=== PATIENT | female | born 1965 | race Caucasian/White ===

== ENCOUNTER 2016-09-18 17:59 | Inpatient (IN) | payer OTHER ==
[~2016-09-18] VITALS: Ht 165.1 cm; Wt 60.0 kg
[2016-09-18] VITALS (15 sets, daily range): BP systolic 106–149; BP diastolic 67–92; PULSE 67–92; RESP 14–19; TEMP 96.5–98; O2SAT 99–100
[2016-09-18] MEDS ORDERED: SODIUM CHLOR 0.9% 1000 ML INJ 1,000 ML IV SCH (18:12)
[2016-09-18] MEDS ORDERED: SODIUM CHLORIDE 0.9% FLUSH 5 ML FLUSH IV FLUSH PRN (18:15)
--- NOTE | 2016-09-18 18:21 | PD ---
HPI Chief Complaint: OD/ Ingestion Time Seen by Provider: 18:12 Travel History International Travel<30 days: No Contact w/Intl Traveler<30days: No Traveled to known affect area: No History of Present Illness HPI Patient is a 50-year-old female arrives with altered mental status by EMS. According to documentation provided by law enforcement the patient apparently had an intentional overdose of Robaxin as well as possible overdose of Klonopin. Apparently this is the birthday of her mother . The patient on arrival is a GCS of 3, EMS had given an etomidate in the field and attempts to intubate him were unsuccessful because the airway was tight. Further history is therefore limited. [facility] Past Medical History Medical History: Unable to Obtain ?: Unknown Past Surgical History Surgical History: Unable to Obtain Social History Alcohol Use: No Tobacco Use: No Substance Use: No Allergies-Medications (Allergen,Severity, Reaction): Coded Allergies: UNOBTAINABLE (Unverified , 09/18/16) UNRESPONSIVE Reported Meds & Prescriptions Reported Meds & Active Scripts Active Reported Methocarbamol 500 Mg Tab 500 Mg PO TID Review of Systems ROS Limitations: Altered Mental Status Physical Exam Exam Limitations: Altered Mental Status Narrative GENERAL: Well-developed, thin, appears much older than stated age. Nonpurposeful movements of the bilateral upper extremities which are intermittent, agonal respirations. GCS of 3. SKIN: Focused skin assessment warm/dry. HEAD: Atraumatic. Normocephalic. EYES: Pupils equal and round. No scleral icterus. No injection or drainage. ENT: No nasal bleeding or discharge. Mucous membranes pink and moist. OG in place by EMS. NECK: Trachea midline. No JVD. CARDIOVASCULAR: Tachycardia with regular rhythm. No murmur appreciated. RESPIRATORY: No accessory muscle use. Clear to auscultation. Breath sounds equal bilaterally. GASTROINTESTINAL: Abdomen soft, non-tender, nondistended. Hepatic and splenic margins not palpable. MUSCULOSKELETAL: No obvious deformities. No clubbing. No cyanosis. No edema. NEUROLOGICAL: GCS of 3. PSYCHIATRIC: Unable to assess Data Data Last Documented VS Vital Signs Date Time Temp Pulse Resp B/P Pulse Ox O2 Delivery O2 Flow Rate FiO2 09/18/16 18:30 98.0 72 19 133/80 100 Ventilator 100 09/18/16 18:00 15 Orders Electrocardiogram (09/18/16 18:12) Ammonia (09/18/16 18:12) Complete Blood Count With Diff (09/18/16 18:12) Comprehensive Metabolic Panel (09/18/16 18:12) Creatine Kinase (Cpk) (09/18/16 18:12) Prothrombin Time / Inr (Pt) (09/18/16 18:12) Act Partial Throm Time (Ptt) (09/18/16 18:12) Troponin I (09/18/16 18:12) Thyroid Stimulating Hormone (09/18/16 18:12) Urinalysis - C+S If Indicated (09/18/16 18:12) Lactic Acid Sepsis Protocol (09/18/16 18:12) Blood Culture (09/18/16 18:12) Chest, Single Ap (09/18/16 18:12) Ct Brain W/O Iv Contrast(Rout) (09/18/16 18:12) Blood Glucose (09/18/16 18:12) Ecg Monitoring (09/18/16 18:12) Iv Access Insert/Monitor (09/18/16 18:12) Oximetry (09/18/16 18:12) Sodium Chloride 0.9% Flush (Ns Flush) (09/18/16 18:15) Sodium Chlor 0.9% 1000 Ml Inj (Ns 1000 M (09/18/16 18:12) Drug Screen, Random Urine (09/18/16 18:12) Alcohol (Ethanol) (09/18/16 18:12) Tylenol (Acetaminophen) (09/18/16 18:12) Salicylates (Aspirin) (09/18/16 18:12) Urinary Catheter Management [id number].[id number] (09/18/16 18:48) Admit Order (Ed Use Only) (09/18/16 ) Labs Laboratory Tests Test 09/18/16 09/18/16 18:10 18:15 Ammonia 17 MCMOL/L White Blood Count 10.8 TH/MM3 Red Blood Count 4.94 MIL/MM3 Hemoglobin 15.1 GM/DL Hematocrit 43.1 % Mean Corpuscular Volume 87.1 FL Mean Corpuscular Hemoglobin 30.6 PG Mean Corpuscular Hemoglobin 35.1 % Concent Red Cell Distribution Width 13.1 % Platelet Count 245 TH/MM3 Mean Platelet Volume 7.7 FL Neutrophils (%) (Auto) 85.3 % Lymphocytes (%) (Auto) 6.1 % Monocytes (%) (Auto) 6.3 % Eosinophils (%) (Auto) 0.1 % Basophils (%) (Auto) 2.2 % Neutrophils # (Auto) 9.2 TH/MM3 Lymphocytes # (Auto) 0.7 TH/MM3 Monocytes # (Auto) 0.7 TH/MM3 Eosinophils # (Auto) 0.0 TH/MM3 Basophils # (Auto) 0.2 TH/MM3 CBC Comment DIFF FINAL Differential Comment Prothrombin Time 11.4 SEC Prothromb Time International 1.0 RATIO Ratio Activated Partial 26.8 SEC Thromboplast Time Sodium Level 134 MEQ/L Potassium Level 2.6 MEQ/L Chloride Level 103 MEQ/L Carbon Dioxide Level 16.6 MEQ/L Anion Gap 14 MEQ/L Blood Urea Nitrogen 19 MG/DL Creatinine 0.98 MG/DL Estimat Glomerular Filtration 61 ML/MIN Rate Random Glucose 148 MG/DL Lactic Acid Level 2.1 mmol/L Calcium Level 8.8 MG/DL Phosphorus Level 2.3 MG/DL Total Bilirubin 21.3 MG/DL Aspartate Amino Transf 24 U/L (AST/SGOT) Alanine Aminotransferase 23 U/L (ALT/SGPT) Alkaline Phosphatase 51 U/L Total Creatine Kinase 97 U/L Troponin I LESS THAN 0.02 NG/ML Total Protein 7.4 GM/DL Albumin 4.1 GM/DL Thyroid Stimulating Hormone 0.844 uIU/ML 3rd Gen Salicylates Level 3.6 MG/DL Urine Opiates Screen NEG Acetaminophen Level LESS THAN 2.0 MCG/ML Urine Barbiturates Screen NEG Urine Amphetamines Screen NEG Urine Benzodiazepines Screen NEG Urine Cocaine Screen NEG Urine Cannabinoids Screen POS Ethyl Alcohol Level LESS THAN 3 MG/DL [facility] Medical Decision Making Medical Screen Exam Complete: Yes Emergency Medical Condition: Yes Interpretation(s) EKG shows sinus rhythm rate is 72, prolonged QTC of 4081, intervals otherwise within normal limits. No concerning ST segment changes. This an abnormal EKG. Differential Diagnosis Opiate overdose, Tylenol overdose, muscle relaxant overdose, benzodiazepine overdose, aspiration. Narrative Course patient roomed in the emergency department, recognizing the need for airway protection the patient was R sign intubated on arrival. Her initial sats in the field were in the low 80s. Patient was discussed with poison control recommended symptomatic management watch for seizures. Patient has no indication for Romazicon at this time. Further Romazicon is contraindicated citing the possibility for status epilepticus. Weinberg catheter was placed basic labs show some mild electrolyte abnormalities. Last 24 hours Impressions Chest X-Ray 09/18/161811 Signed Impressions: Service Date/Time: , September 18, 2016 18:16 - CONCLUSION: 1. Endotracheal tube and nasogastric tube in satisfactory position. No acute findings. Nick Hassan MD Patient is CT head and C-spine pending at this time. Was discussed with Dr. Paul for admission to the hospital and he is agreeable. She is under Lopez act. Critical Care Narrative Aggregate critical care time was 35 minutes. Time to perform other separately billable procedures was not included in the critical care time. My time did not include minutes spent treating any other patients simultaneously or on activities that did not directly contribute to the patient's treatment. The services I provided to this patient were to treat and/or prevent clinically significant deterioration that could result in: , Disability, End organ failure I provided critical care services requiring my management, as noted below: Chart data review, documentation time, medication orders and management, vital sign assessments/reviewing monitor data, ordering and reviewing lab tests, ordering and interpreting/reviewing x-rays and diagnostic studies, care of the patient and discussion of the patient with the admitting physicians. Procedures Procedure Narrative INTUBATION: The patient was put in optimal position for the procedure. Rapid sequence intubation was initiated by me using 100 milligrams of succinylcholine IV. Patient already received etomidate and Ativan prior to arrival. Patient was attempted to be intubated with an 80 cuffed endotracheal tube however some laryngeal edema present 8 [place] tube was unable to be passed on 2 attempts. The patient was intubated with a 6-0 cuffed endotracheal tube. Tube placement was confirmed by visualization of the tube and balloon passing through the cords, capnometry and subsequent chest x-ray. Breath sounds were equal and well aerated bilaterally postintubation. No breath sounds over stomach. No desaturation during intubation. OG tube was placed by EMS was left in place during intubation. Patient tolerated procedure well. Diagnosis Primary Impression: Overdose of muscle relaxant Qualified Code: T48.202A - Overdose of muscle relaxant, intentional self-harm , initial encounter Additional Impression: Acute respiratory failure with hypoxia Admitting Information Admitting Physician Requests: Admit Condition: Teddy Goddard MD Sep 18, 2016 18:21
[2016-09-18 18:31] LABS: AUTOMATED NEUTROPHIL # 9.2 TH/MM3 (1.8-7.7); BASOPHIL # 0.2 TH/MM3 (0-0.2); BASOPHIL % 2.2 % (0.0-2.0); EOSINOPHIL % 0.1 % (0.0-4.0); HEMATOCRIT 43.1 % (35.0-46.0); HEMO FLAGS DIFF FINAL; LYMPH % 6.1 % (9.0-44.0); LYMPHOCYTE # 0.7 TH/MM3 (1.0-4.8); MEAN CELL VOLUME 87.1 FL (80.0-100.0); MEAN CORPUSCULAR HEMOGLOBIN 30.6 PG (27.0-34.0); MEAN CORPUSCULAR HGB CONC 35.1 % (32.0-36.0); MONO % 6.3 % (0.0-8.0); NEUT % 85.3 % (16.0-70.0); PLATELET COUNT 245 TH/MM3 (150-450); RED BLOOD COUNT 4.94 MIL/MM3 (4.00-5.30); RED CELL DISTRIBUTION WIDTH 13.1 % (11.6-17.2); WHITE BLOOD COUNT 10.8 TH/MM3 (4.0-11.0)
[2016-09-18 18:43] LABS: AMPHETAMINE, URINE NEG (NEG); BARBITURATES, URINE NEG (NEG); COCAINE, URINE NEG (NEG)
[2016-09-18 18:47] LABS: APTT (PATIENT) 26.8 SEC (24.3-30.1); PROTHROMBIN TIME - PATIENT 11.4 SEC (9.8-11.6)
--- NOTE | 2016-09-18 18:50 | RADRPT ---
EXAM DATE/TIME: 09/18/2016 18:16 [facility] COMPARISON: No previous studies available for comparison. INDICATIONS : Syncope; overdose. MEDICAL HISTORY : Unobtainable. SURGICAL HISTORY : Unobtainable. ENCOUNTER: Initial ACUITY: 1 day PAIN SCORE: Non-responsive. LOCATION: Bilateral chest FINDINGS: Endotracheal tube tip in satisfactory position. NG enters stomach. No focal consolidation or signific ant effusion. No pneumothorax. Heart size normal. CONCLUSION: 1. Endotracheal tube and nasogastric tube in satisfactory position. No acute findings. Nick Hassan MD on September 18, 2016 at 18:47 Board Certified Radiologist. This report was verified electronically.
[2016-09-18 19:12] LABS: ACETAMINOPHEN LESS THAN 2.0 MCG/ML (10.0-30.0); ALKALINE PHOSPHATASE 51 U/L (45-117); ALT (GPT) 23 U/L (10-53); ANION GAP 14 MEQ/L (5-15); AST (GOT) 24 U/L (15-37); BICARBONATE 16.6 MEQ/L (21.0-32.0); BLOOD UREA NITROGEN 19 MG/DL (7-18); CHLORIDE 103 MEQ/L (98-107); GLOMERULAR FILTRATION RATE 61 ML/MIN (>89); SODIUM (NA) 134 MEQ/L (136-145); TOTAL BILIRUBIN ADULT 21.3 MG/DL (0.2-1.0)
[2016-09-18 19:13] LABS: CREATINE KINASE 97 U/L (26-192)
[2016-09-18 19:14] LABS: POTASSIUM 2.6 MEQ/L (3.5-5.1)
[2016-09-18] MEDS ORDERED: NS + KCL 20 MEQ INJ 1,000 ML IV SCH (19:22)
[2016-09-18] MEDS ORDERED: POTASSIUM PHOSPHATE MONOBASIC 500 MG TAB PO PRN (19:30)
[2016-09-18] MEDS ORDERED: ONDANSETRON HCL 4 MG/2 ML VIAL IV PRN (19:30)
[2016-09-18] MEDS ORDERED: MAGNESIUM SULFATE INJ 4 GM in SODIUM CHLORIDE 0.9% INJ 92 ML IV PRN (19:30)
[2016-09-18] MEDS ORDERED: SODIUM PHOSPHATE INJ 30 MMOL in SODIUM CHLOR 0.9% 250 ML INJ 240 ML IV PRN (19:30)
[2016-09-18] MEDS ORDERED: POTASSIUM CHLOR 40 MEQ PREMIX 100 ML IV PRN ×2 (19:30)
[2016-09-18] MEDS ORDERED: POTASSIUM CHLOR 20 MEQ PREMIX 100 ML IV PRN (19:30)
[2016-09-18] MEDS ORDERED: ACETAMINOPHEN 325 MG TAB PO PRN (19:30)
[2016-09-18] MEDS ORDERED: MAGNESIUM SULFATE INJ 2 GM in SODIUM CHLORIDE 0.9% INJ 96 ML IV PRN (19:30)
[2016-09-18] MEDS ORDERED: BISACODYL 10 MG SUPP RECTAL PRN (19:30)
[2016-09-18] MEDS ORDERED: MAGNESIUM OXIDE 400 MG TAB PO PRN (19:30)
[2016-09-18] MEDS ORDERED: CHLORHEXIDINE GLUCONATE 2 % 1 PACK (2 CLOTHS) TOP PRN (19:30)
[2016-09-18] MEDS ORDERED: MISCELLANEOUS NURSING INFORMATION XX SCH (19:30)
[2016-09-18] MEDS ORDERED: SENNOSIDES 8.6 MG TAB PO PRN (19:30)
[2016-09-18] MEDS ORDERED: MAGNESIUM HYDROXIDE SUSP 30 ML CUP PO PRN (19:30)
[2016-09-18] MEDS ORDERED: LACTULOSE SYRUP 20 GM/30 ML CUP PO PRN (19:30)
[2016-09-18] MEDS ORDERED: POTASSIUM PHOSPHATE MONOBASIC 500 MG TAB PO/TUBE PRN (19:30)
[2016-09-18 19:38] LABS: BLOOD GAS CARBOXYHEMOGLOBIN 0.6 % (0-4); BLOOD GAS HCO3 17 mmol/L (22-26); BLOOD GAS METHEMOGLOBIN 0.7 % (0-2); BLOOD GAS O2 HGB SATURATION 98 % (90-100); BLOOD GAS PCO2 37 mmHg (38-42); BLOOD GAS PO2 504 mmHG (61-120); BLOOD GAS TOTAL HGB 14.2 G/DL (12.0-16.0); TEMP CORR TO 98.6
[2016-09-18 19:39] LABS: CRITICAL VALUE YES; DRAW SITE RT FEMORAL; FIO2 100 %; NUMBER OF ARTERIAL PUNCTURES 1; OXYGEN DEVICE VENTILATOR; STAT YES; VENT SETTINGS AC/14/450 5 PEEP
[2016-09-18] MEDS: LORazepam 2 MG/ML VIAL IV PRN (20:06)
[2016-09-18] MEDS: PROPOFOL 1000 MG/100 ML INJ 100 ML IV SCH (20:10)
[2016-09-18 20:25] LABS: LACTIC ACID GHOST NOT REPORTABLE
[2016-09-18] MEDS: SODIUM CHLORIDE 0.9% FLUSH 10 ML FLUSH SCH (21:00)
[2016-09-18] MEDS: ENOXAPARIN SODIUM 40 MG/0.4 ML SYRINGE SQ SCH (21:00)
[2016-09-18] MEDS: DOCUSATE SODIUM 50 MG/SENNA 8.6 MG TAB PO SCH (21:00)
--- NOTE | 2016-09-18 21:06 | HHI.HP ---
HPI Service Critical Care Medicine Primary Care Physician Gildardo Polanco MD Admission Diagnosis Respiratory failure, Overdose. Diagnosis: Travel History International Travel<30 Days: No Contact w/Intl Traveler <30 Da: No Traveled to Known Affected Are: No History of Present Illness 50-year-old female arrives with altered mental status by EMS. Per chart documentation the patient had most likely intentional overdose of Robaxin as well as possible overdose of Klonopin. Apparently this is the birthday of her mother . The patient on arrival was a GCS of 3, and was intubated by ED attending for an airway protection. Review of Systems ROS Unobtainable patient's sedated and intubated Past Family Social History Allergies: Coded Allergies: UNOBTAINABLE (Unverified , 09/18/16) UNRESPONSIVE Past Medical History Unobtainable Past Surgical History Unobtainable Reported Medications Reported Meds & Active Scripts Active Reported Methocarbamol 500 Mg Tab 500 Mg PO TID Active Ordered Medications Current Medications Medications (Trade) Dose Ordered Sig/[place]is[place] Route PRN Reason Start Time Stop Time Status Last Admin Dose Admin IV Flush 2 ml 2 ml UNSCH PRN IV FLUSH FLUSH AFTER USING IV ACCESS 09/18/16 18:15 Potassium Chloride 100 ml @ 50 mls/hr Q2H PRN IV For Potassium 2.8 - 3.2 mEq/L 09/18/16 19:30 Potassium Chloride (KCl 20 Meq Premix Inj) 100 ml @ 50 mls/hr Q2H PRN IV For Potassium 2.8 - 3.2 mEq/L 09/18/16 19:30 Potassium Bicarb/ Potassium Chloride 50 meq 50 meq UNSCH PRN PO For Potassium 3.3 - 3.5 mEq/L 09/18/16 19:30 Potassium Chloride 100 ml @ 25 mls/hr UNSCH PRN IV For Potassium 3.3 - 3.5 mEq/L 09/18/16 19:30 Potassium Chloride 100 ml @ 50 mls/hr Q2H PRN IV For Potassium 3.3 - 3.5 mEq/L 09/18/16 19:30 Magnesium Sulfate/ Sodium Chloride (Magnesium Sulfate Inj/NS Inj) 100 ml @ 50 mls/hr UNSCH PRN IV For Magnesium 0.9 - 1.1 mg/dL 09/18/16 19:30 Magnesium Oxide 800 mg 800 mg UNSCH PRN PO For Magnesium 1.2 - 1.6 mg/dL 09/18/16 19:30 Magnesium Sulfate/ Sodium Chloride (Magnesium Sulfate Inj/NS Inj) 100 ml @ 50 mls/hr UNSCH PRN IV For Magnesium 1.2 - 1.6 mg/dL 09/18/16 19:30 Potassium Phosphate 2000 mg 2,000 mg Q4H PRN PO For Phosphorus < 2.5 mg/dL 09/18/16 19:30 Sodium Phosphate/ Sodium Chloride (Sodium Phosphate Inj/NS 250 ml Inj) 250 ml @ 42 mls/hr UNSCH PRN IV For Phosphorus < 2.5 mg/dL 09/18/16 19:30 Potassium Phosphate 2000 mg 2,000 mg UNSCH PRN PO/TUBE SEE LABEL COMMENTS 09/18/16 19:30 Potassium Phosphate 30 mmol/ Sodium Chloride 260 ml @ 42 mls/hr UNSCH PRN IV SEE LABEL COMMENTS 09/18/16 19:30 Potassium Chloride/Sodium Chloride (NS + KCl 20 Meq Inj) 1,000 ml @ 100 mls/hr Q10H IV 09/18/16 19:22 09/18/16 20:09 Sodium Chloride (NS Flush) 2 ml UNSCH PRN .XX FLUSH AFTER USING IV ACCESS 09/18/16 19:30 Sodium Chloride (NS Flush) 2 ml BID .XX 09/18/16 21:00 Acetaminophen (Tylenol) 650 mg Q6H PRN PO PAIN 1-10 AND/OR FEVER >101F 09/18/16 19:30 Famotidine (Pepcid Inj) 20 mg Q12HR IV PUSH 09/18/16 21:00 Lorazepam (Ativan Inj) 1 mg Q1H PRN IV Agitation/Sedation 09/18/16 19:30 09/18/16 20:06 Ondansetron HCl (Zofran Inj) 4 mg Q6H PRN IV NAUSEA OR VOMITING 09/18/16 19:30 Enoxaparin Sodium (Lovenox Inj) 40 mg Q24H SQ 09/18/16 21:00 Miscellaneous Information 1 [id number] XX 09/18/16 19:30 Chlorhexidine Gluconate (Chlorhexidine 2% Cloth) 3 pack Taper DAILY@04 TOP 09/19/16 04:00 09/15/17 03:59 Chlorhexidine Gluconate (Chlorhexidine 2% Cloth) 3 pack UNSCH PRN TOP HYGIENIC CARE 09/18/16 19:30 Senna/Docusate Sodium (Cheri-Colace) 1 tab BID PO 09/18/16 21:00 Magnesium Hydroxide (Milk Of Jaiden Britton) 30 ml Q12H PRN PO MILD - MODERATE CONSTIPATION 09/18/16 19:30 Sennosides (Senokot) 17.2 mg Q12H PRN PO MODERATE - SEVERE CONSTIPATION 09/18/16 19:30 Bisacodyl (Dulcolax Supp) 10 mg DAILY PRN RECTAL SEVERE CONSITIPATION 09/18/16 19:30 Lactulose 30 ml 30 ml DAILY PRN PO SEVERE CONSITIPATION 09/18/16 19:30 Propofol 100 ml @ 0 mls/hr TITRATE IV 09/18/16 19:30 09/18/16 20:10 Sodium Bicarbonate/ Dextrose (Sodium Bicarbonate 8.4% Inj/D5W 1000 ml Inj) 1,150 ml @ 75 mls/hr [id number] IV 09/18/16 23:00 09/19/16 00:16 Family History Unobtainable Social History Unobtainable Physical Exam Vital Signs Vital Signs Date Time Temp Pulse Resp B/P Pulse Ox O2 Delivery O2 Flow Rate FiO2 09/18/16 20:30 67 131/83 100 09/18/16 20:00 68 149/92 100 09/18/16 19:35 100 50 09/18/16 19:00 87 147/82 100 09/18/16 18:30 98.0 72 19 133/80 100 Ventilator 100 09/18/16 18:10 100 100 09/18/16 18:03 92 16 130/70 99 09/18/16 18:00 99 15 09/18/16 18:00 99 Bag Valve 15 Physical Exam GENERAL: Elderly looking female sedated and intubated SKIN: Warm and dry. HEAD: Normocephalic. EYES: No scleral icterus. No injection or drainage. NECK: Supple, trachea midline. No JVD or lymphadenopathy. CARDIOVASCULAR: Regular rate and rhythm without murmurs, gallops, or rubs. RESPIRATORY: Breath sounds equal bilaterally. No accessory muscle use. GASTROINTESTINAL: Abdomen soft, non-tender, nondistended. MUSCULOSKELETAL: No cyanosis, or edema. BACK: Nontender without obvious deformity. No CVA tenderness. EXTREMITIES: No clubbing cyanosis or edema Laboratory Laboratory Tests Test 09/18/16 09/18/16 09/18/16 18:10 18:15 19:20 Ammonia 17 White Blood Count 10.8 Red Blood Count 4.94 Hemoglobin 15.1 Hematocrit 43.1 Mean Corpuscular Volume 87.1 Mean Corpuscular Hemoglobin 30.6 Mean Corpuscular Hemoglobin 35.1 Concent Red Cell Distribution Width 13.1 Platelet Count 245 Mean Platelet Volume 7.7 Neutrophils (%) (Auto) 85.3 Lymphocytes (%) (Auto) 6.1 Monocytes (%) (Auto) 6.3 Eosinophils (%) (Auto) 0.1 Basophils (%) (Auto) 2.2 Neutrophils # (Auto) 9.2 Lymphocytes # (Auto) 0.7 Monocytes # (Auto) 0.7 Eosinophils # (Auto) 0.0 Basophils # (Auto) 0.2 CBC Comment DIFF FINAL Differential Comment Prothrombin Time 11.4 Prothromb Time International 1.0 Ratio Activated Partial 26.8 Thromboplast Time Sodium Level 134 Potassium Level 2.6 Chloride Level 103 Carbon Dioxide Level 16.6 Anion Gap 14 Blood Urea Nitrogen 19 Creatinine 0.98 Estimat Glomerular Filtration 61 Rate Random Glucose 148 Lactic Acid Level 2.1 Calcium Level 8.8 Total Bilirubin 21.3 Aspartate Amino Transf 24 (AST/SGOT) Alanine Aminotransferase 23 (ALT/SGPT) Alkaline Phosphatase 51 Total Creatine Kinase 97 Troponin I LESS THAN 0.02 Total Protein 7.4 Albumin 4.1 Thyroid Stimulating Hormone 0.844 3rd Gen Salicylates Level 3.6 Urine Opiates Screen NEG Acetaminophen Level LESS THAN 2.0 Urine Barbiturates Screen NEG Urine Amphetamines Screen NEG Urine Benzodiazepines Screen NEG Urine Cocaine Screen NEG Urine Cannabinoids Screen POS Ethyl Alcohol Level LESS THAN 3 Blood Gas Puncture Site RT FEMORAL Blood Gas Patient Temperature 98.6 Blood Gas HCO3 17 Blood Gas Base Excess -9.0 Blood Gas Oxygen Saturation 98 Arterial Blood pH 7.27 Arterial Blood Partial 37 Pressure CO2 Arterial Blood Partial 504 Pressure O2 Arterial Blood Oxygen Content 21.0 Arterial Blood 0.6 Carboxyhemoglobin Arterial Blood Methemoglobin 0.7 Blood Gas Hemoglobin 14.2 Oxygen Delivery Device VENTILATOR Blood Gas Ventilator Setting AC/14/450 5 PEEP Blood Gas Inspired Oxygen 100 Result Diagram: 09/18/16181409/18/161814 Imaging Last [address] 09/18/161811 Signed Impressions: Service Date/Time: August 23:18 - CONCLUSION: No acute intracranial findings. Fred Cardoza MD Chest X-Ray 09/18/161811 Signed Impressions: Service Date/Time: August 18:16 - CONCLUSION: 1. Endotracheal tube and nasogastric tube in satisfactory position. No acute findings. Nick Hassan MD Assessment and Plan Assessment and Plan Respiratory failure - Intubated for an airway protection - Extubation or weaning until neurologically improved - CXR and ABG daily Metabolic acidosis - Sodium bicarbonate drip - Monitor pH trend - IV hydration Suicidal attempt - Psychiatry evaluation when extubated Overdose - Telemetry - IV fluids - Serial labs - Further per Poison Control Center DVT GI prophylaxis - Teds SCDs - Subcutaneous heparin and Pepcid Critical Care: The total critical care time was 35 minutes. Time to perform other separately billable procedures was not included in the critical care time. Jose Antonio Paul MD Sep 18, 2016 21:06
[2016-09-18] MEDS ORDERED: METH500T3 PO (21:07)
--- NOTE | 2016-09-18 21:51 | EKG ---
Date Performed: 09/18/2016 Time Performed: 18:23:05 PTAGE: 50 years EKG: Sinus rhythm WITH SHORT CT INTERVAL Borderline PROLONGED QT INTERVAL ABNORMAL ECG NO PREVIOUS TRACING DOCTOR: Juliano Zamorano Interpretating Date/Time 09/18/2016 21:49:48
--- NOTE | 2016-09-18 23:39 | RADRPT ---
EXAM DATE/TIME: 09/18/2016 23:18 [facility] COMPARISON: No previous studies available for comparison. INDICATIONS : Altered mental status. RADIATION DOSE: 31.61 CTDIvol (mGy) MEDICAL HISTORY : Non-responsive. SURGICAL HISTORY : Non-responsive. ENCOUNTER: Initial ACUITY: 1 day PAIN SCALE: Non-responsive LOCATION: cranial TECHNIQUE: Multiple contiguous axial images were obtained of the head. Using automated exposure control and adj ustment of the mA and/or kV according to patient size, radiation dose was kept as low as reasonably a chievable to obtain optimal diagnostic quality images. DICOM format image data is available electro nically for review and comparison. FINDINGS: CEREBRUM: The ventricles are normal for age. No evidence of midline shift, mass lesion, hemorrhage or acute in farction. No extra-axial fluid collections are seen. POSTERIOR FOSSA: The cerebellum and brainstem are intact. The 4th ventricle is midline. The cerebellopontine angle i s unremarkable. EXTRACRANIAL: The visualized portion of the orbits is intact. SKULL: The calvaria is intact. No evidence of skull fracture. CONCLUSION: No acute intracranial findings. Fred Cardoza MD on September 18, 2016 at 23:35 Board Certified Radiologist. This report was verified electronically.
[2016-09-19] VITALS (22 sets, daily range): BP systolic 89–134; BP diastolic 54–84; PULSE 70–124; RESP 14–26; TEMP 96.9–99.5; O2SAT 90–100
[2016-09-19] MEDS: SODIUM BICARBONATE 8.4% INJ 150 MEQ in DEXTROSE 5% IN WATE 1000ML INJ 1,000 ML IV SCH ×4 (00:16→13:54)
[2016-09-19] MEDS: PROPOFOL 1000 MG/100 ML INJ 100 ML IV SCH ×3 (00:27→15:37)
[2016-09-19] MEDS: POTASSIUM CHLOR 20 MEQ PREMIX 100 ML IV PRN ×2 (02:36→06:43)
[2016-09-19] MEDS: POTASSIUM PHOSPHATE INJ 30 MMOL in SODIUM CHLOR 0.9% 250 ML INJ 250 ML IV PRN ×2 (03:07→18:37)
[2016-09-19] MEDS: CHLORHEXIDINE GLUCONATE 2 % 1 PACK (2 CLOTHS) TOP SCH (04:00)
[2016-09-19 05:03] LABS: BASOPHIL # 0.1 TH/MM3 (0-0.2); BASOPHIL % 0.4 % (0.0-2.0); EOSINOPHIL # 0.1 TH/MM3 (0-0.4); EOSINOPHIL % 0.7 % (0.0-4.0); HEMATOCRIT 38.8 % (35.0-46.0); HEMO FLAGS DIFF FINAL; LYMPH % 9.4 % (9.0-44.0); LYMPHOCYTE # 1.6 TH/MM3 (1.0-4.8); MEAN CELL VOLUME 88.5 FL (80.0-100.0); MEAN CORPUSCULAR HGB CONC 32.8 % (32.0-36.0); NEUT % 81.5 % (16.0-70.0); PLATELET COUNT 233 TH/MM3 (150-450); RED BLOOD COUNT 4.39 MIL/MM3 (4.00-5.30); RED CELL DISTRIBUTION WIDTH 13.1 % (11.6-17.2); WHITE BLOOD COUNT 17.2 TH/MM3 (4.0-11.0)
[2016-09-19 05:29] LABS: BLOOD GAS BASE EXCESS -6.5 mmol/L (-2-2); BLOOD GAS HCO3 18 mmol/L (22-26); BLOOD GAS METHEMOGLOBIN 1.4 % (0-2); BLOOD GAS O2 HGB SATURATION 96 % (90-100); BLOOD GAS OXYGEN CONTENT 17.9 Vol % (12.0-20.0); BLOOD GAS PCO2 34 mmHg (38-42); BLOOD GAS PO2 113 mmHg (61-120); BLOOD GAS TOTAL HGB 13.2 G/DL (12.0-16.0); CRITICAL VALUE NO; DRAW SITE RT RADIAL; FIO2 30 %; NUMBER OF ARTERIAL PUNCTURES 1; OXYGEN DEVICE VENTILATOR; STAT NO; TEMP CORR TO 98.6; VENT SETTINGS AC450/14/+5
[2016-09-19 05:50] LABS: ALKALINE PHOSPHATASE 41 U/L (45-117); ALT (GPT) 20 U/L (10-53); ANION GAP 11 MEQ/L (5-15); AST (GOT) 25 U/L (15-37); BICARBONATE 19.1 MEQ/L (21.0-32.0); BLOOD UREA NITROGEN 17 MG/DL (7-18); CHLORIDE 109 MEQ/L (98-107); GLOMERULAR FILTRATION RATE 70 ML/MIN (>89); MAGNESIUM 1.8 MG/DL (1.5-2.5); POTASSIUM 4.4 MEQ/L (3.5-5.1); SODIUM (NA) 139 MEQ/L (136-145); TOTAL BILIRUBIN ADULT 20.4 MG/DL (0.2-1.0)
--- NOTE | 2016-09-19 06:11 | RADRPT ---
EXAM DATE/TIME: 09/19/2016 05:14 [facility] COMPARISON: CHEST SINGLE AP, September 18, 2016, 18:16. INDICATIONS : Evaluate for respiratory disease. MEDICAL HISTORY : Unobtainable. SURGICAL HISTORY : Unobtainable. ENCOUNTER: Subsequent ACUITY: 2 days PAIN SCORE: Non-responsive. LOCATION: chest FINDINGS: Single AP view of the chest. Endotracheal tube and nasogastric tube remain in place. Lungs are clear. Cardiomediastinal silhouette within normal limits. No evidence of pleural effusion or pneumothorax. CONCLUSION: Endotracheal tube and nasogastric tube remain in place. No acute cardiopulmonary disease identified. Fred Cardoza MD on September 19, 2016 at 6:07 Board Certified Radiologist. This report was verified electronically.
[2016-09-19] MEDS: FAMOTIDINE 20 MG/2 ML VIAL IV PUSH SCH ×2 (08:23→21:00)
[2016-09-19] MEDS: SODIUM CHLORIDE 0.9% FLUSH 10 ML FLUSH SCH ×2 (08:23→21:00)
[2016-09-19] MEDS: DOCUSATE SODIUM 50 MG/SENNA 8.6 MG TAB PO SCH ×2 (08:23→21:00)
[2016-09-19 15:35] LABS: BLOOD GAS BASE EXCESS -3.5 mmol/L (-2-2); BLOOD GAS CARBOXYHEMOGLOBIN 1.1 % (0-4); BLOOD GAS HCO3 20 mmol/L (22-26); BLOOD GAS METHEMOGLOBIN 1.6 % (0-2); BLOOD GAS O2 HGB SATURATION 95 % (90-100); BLOOD GAS OXYGEN CONTENT 17.4 Vol % (12.0-20.0); BLOOD GAS PCO2 31 mmHg (38-42); BLOOD GAS PO2 92 mmHg (61-120); TEMP CORR TO 98.6
[2016-09-19 15:36] LABS: CRITICAL VALUE NO; DRAW SITE RT RADIAL; FIO2 30 %; NUMBER OF ARTERIAL PUNCTURES 1; OXYGEN DEVICE VENTILATOR; STAT YES; ULNAR PULSE PRESENT; VENT SETTINGS 450/14/+5
[2016-09-19 17:04] LABS: BICARBONATE 22.3 MEQ/L (21.0-32.0)
[2016-09-19 17:23] LABS: CALCIUM-PROTEIN CORRECTED 7.9 MG/DL (8.5-10.1)
[2016-09-19 17:33] LABS: POTASSIUM 2.9 MEQ/L (3.5-5.1)
[2016-09-19] MEDS: POTASSIUM CHLORIDE 25 MEQ EFFERVESCENT TAB PO PRN (17:50)
[2016-09-19] MEDS: LORazepam 2 MG/ML VIAL IV PRN (18:38)
--- NOTE | 2016-09-19 19:12 | HHI.CCPN ---
Subjective Remarks/Hospital Course 50-year-old female arrives with altered mental status by EMS. Per chart documentation the patient had most likely intentional overdose of Robaxin as well as possible overdose of Klonopin. Apparently this is the birthday of her mother . The patient on arrival was a GCS of 3, and was intubated by ED attending for an airway protection. Subjective: 09/19: Discussed with poison control, repeat EKG performed for comparison noted QT prolongation resolved. Sodium bicarbonate discontinued post repeat BMP the patient is noted to be hypokalemic as well as hypophosphatemic currently being repleted . Plan for CPAP trials Objective Vital Signs Date Time Temp Pulse Resp B/P Pulse Ox O2 Delivery O2 Flow Rate FiO2 09/19/16 18:00 113 09/19/16 16:00 99.5 19 130/72 96 09/19/16 16:00 30 09/18/16 21:51 Ventilator 15 Intake and Output 09/18/16 09/18/16 09/19/16 08:00 16:00 00:00 Output Total 800 ml Balance -800 ml Result Diagram: 09/19/16 0422 09/19/16 1551 Other Results Laboratory Tests Test 09/18/16 09/19/16 09/19/16 19:20 05:22 15:19 Blood Gas Puncture Site RT FEMORAL RT RADIAL RT RADIAL Blood Gas Patient Temperature 98.6 98.6 98.6 Blood Gas HCO3 17 mmol/L 18 mmol/L 20 mmol/L (22-26) (22-26) (22-26) Blood Gas Base Excess -9.0 mmol/L -6.5 mmol/L -3.5 mmol/L (-2-2) (-2-2) (-2-2) Blood Gas Oxygen Saturation 98 % (90-100) 96 % (90-100) 95 % (90-100) Arterial Blood pH 7.27 7.35 7.43 (7.380-7.420) (7.380-7.420) (7.380-7.420) Arterial Blood Partial 37 mmHg (38-42) 34 mmHg (38-42) 31 mmHg (38-42) Pressure CO2 Arterial Blood Partial 504 mmHG 113 mmHg 92 mmHg Pressure O2 (61-120) (61-120) (61-120) Arterial Blood Oxygen Content 21.0 Vol % 17.9 Vol % 17.4 Vol % (12.0-20.0) (12.0-20.0) (12.0-20.0) Arterial Blood 0.6 % (0-4) 1.0 % (0-4) 1.1 % (0-4) Carboxyhemoglobin Arterial Blood Methemoglobin 0.7 % (0-2) 1.4 % (0-2) 1.6 % (0-2) Blood Gas Hemoglobin 14.2 G/DL 13.2 G/DL 13.0 G/DL (12.0-16.0) (12.0-16.0) (12.0-16.0) Oxygen Delivery Device VENTILATOR VENTILATOR VENTILATOR Blood Gas Ventilator Setting AC/14/450 5 AC450/14/+5 450/14/+5 PEEP Blood Gas Inspired Oxygen 100 % 30 % 30 % Imaging Last [address] 09/18/161811 Signed Impressions: Service Date/Time: August 23:18 - CONCLUSION: No acute intracranial findings. Fred Cardoza MD Chest X-Ray 09/18/161811 Signed Impressions: Service Date/Time: , September 18, 2016 18:16 - CONCLUSION: 1. Endotracheal tube and nasogastric tube in satisfactory position. No acute findings. Nick Hassan MD Objective Remarks GENERAL: Elderly looking female sedated and intubated SKIN: Warm and dry. HEAD: Normocephalic. EYES: No scleral icterus. No injection or drainage. NECK: Supple, trachea midline. No JVD or lymphadenopathy. CARDIOVASCULAR: Regular rate and rhythm without murmurs, gallops, or rubs. RESPIRATORY: Breath sounds equal bilaterally. No accessory muscle use. GASTROINTESTINAL: Abdomen soft, non-tender, nondistended. MUSCULOSKELETAL: No cyanosis, or edema. EXTREMITIES: No clubbing cyanosis or edema Urinary Catheter: Yes Date of Insertion: Sep 18, 2016 A/P Assessment and Plan Respiratory failure - Intubated for an airway protection - Extubation or weaning until neurologically improved - CXR and ABG daily -Begin daily CPAP trials Metabolic acidosis - 09/19 Sodium bicarbonate drip discontinued - Monitor pH trend - IV hydration Suicidal attempt - Psychiatry evaluation when extubated -Lopez Act in place Overdose - Telemetry - IV fluids - Serial labs - Further per Poison Control Center DVT GI prophylaxis - Teds SCDs - Subcutaneous heparin and Pepcid Critical Care: The total critical care time was 30 minutes. Time to perform other separately billable procedures was not included in the critical care time. Physician Idania Verdin MD Sep 19, 2016 19:12
[2016-09-19] MEDS: ENOXAPARIN SODIUM 40 MG/0.4 ML SYRINGE SQ SCH (21:00)
[2016-09-19] MEDS: RESP: ALBUTEROL 2.5 MG/3 ML NEB (PRN) INH (21:06)
[2016-09-20] VITALS (34 sets, daily range): BP systolic 81–129; BP diastolic 51–69; PULSE 114–126; RESP 15–29; TEMP 98.2–100.8; O2SAT 91–98
[2016-09-20] MEDS: RESP: ALBUTEROL 2.5 MG/3 ML NEB (PRN) INH ×3 (00:28→10:22)
[2016-09-20] MEDS: PROPOFOL 1000 MG/100 ML INJ 100 ML IV SCH ×4 (01:37→21:43)
[2016-09-20] MEDS ORDERED: SUCCINYLCHOLINE CHLORIDE 200 MG/10 ML VIAL ONE (02:12)
[2016-09-20] MEDS: CHLORHEXIDINE GLUCONATE 2 % 1 PACK (2 CLOTHS) TOP SCH (04:00)
--- NOTE | 2016-09-20 05:24 | RADRPT ---
EXAM DATE/TIME: 09/20/2016 02:44 [facility] COMPARISON: CHEST SINGLE AP, September 19, 2016, 5:14. INDICATIONS : Respiratory failure, post intubation MEDICAL HISTORY : None. SURGICAL HISTORY : None. ENCOUNTER: Subsequent ACUITY: 3 days PAIN SCORE: Non-responsive. LOCATION: Bilateral chest FINDINGS: A single view of the chest demonstrates the endotracheal tube is in good position. There is a radiolu cent tube I suspect is an NG tube in the midesophagus. The cardiomediastinal contours are unremarkab le. Osseous structures are intact. CONCLUSION: ET tube in good position. The NG tube may need to be advanced Harsh Chairez MD on September 20, 2016 at 5:22 Board Certified Radiologist. This report was verified electronically.
[2016-09-20 05:36] LABS: BLOOD GAS BASE EXCESS -6.7 mmol/L (-2-2); BLOOD GAS CARBOXYHEMOGLOBIN 0.8 % (0-4); BLOOD GAS HCO3 19 mmol/L (22-26); BLOOD GAS METHEMOGLOBIN 1.7 % (0-2); BLOOD GAS O2 HGB SATURATION 92 % (90-100); BLOOD GAS OXYGEN CONTENT 17.8 Vol % (12.0-20.0); BLOOD GAS PCO2 44 mmHg (38-42); BLOOD GAS PO2 82 mmHg (61-120); BLOOD GAS TOTAL HGB 13.7 G/DL (12.0-16.0); TEMP CORR TO 98.6
[2016-09-20 05:37] LABS: DRAW SITE RT RADIAL; FIO2 70 %; NUMBER OF ARTERIAL PUNCTURES 1; OXYGEN DEVICE VENTILATOR; STAT NO; ULNAR PULSE PRESENT; VENT SETTINGS AC14/450/+8
[2016-09-20 05:38] LABS: CRITICAL VALUE YES
[2016-09-20 06:37] LABS: MEAN CELL VOLUME 88.3 FL (80.0-100.0); MEAN CORPUSCULAR HEMOGLOBIN 30.3 PG (27.0-34.0); MEAN CORPUSCULAR HGB CONC 34.4 % (32.0-36.0); PLATELET COUNT 187 TH/MM3 (150-450); RED BLOOD COUNT 4.42 MIL/MM3 (4.00-5.30); RED CELL DISTRIBUTION WIDTH 13.8 % (11.6-17.2); WHITE BLOOD COUNT 31.3 TH/MM3 (4.0-11.0)
[2016-09-20 06:44] LABS: REVIEW FLAG FINAL
[2016-09-20 06:54] LABS: BICARBONATE 20.1 MEQ/L (21.0-32.0); MAGNESIUM 1.7 MG/DL (1.5-2.5)
[2016-09-20 07:20] LABS: CALCIUM-PROTEIN CORRECTED 7.7 MG/DL (8.5-10.1)
[2016-09-20] MEDS ORDERED: SODIUM BICARBONATE 8.4% INJ 50 MEQ/50 ML SYR IV PUSH ONE (07:45)
[2016-09-20] MEDS ORDERED: SODIUM CHLOR 0.9% 1000 ML INJ 1,000 ML IV ONE (07:45)
[2016-09-20] MEDS: SODIUM CHLOR 0.9% 1000 ML INJ 1,000 ML IV SCH ×2 (07:46→17:32)
[2016-09-20] MEDS: SODIUM CHLORIDE 0.9% FLUSH 10 ML FLUSH SCH ×2 (08:18→19:58)
[2016-09-20] MEDS: FAMOTIDINE 20 MG/2 ML VIAL IV PUSH SCH ×2 (08:19→19:58)
[2016-09-20] MEDS: DOCUSATE SODIUM 50 MG/SENNA 8.6 MG TAB PO SCH ×2 (08:19→19:59)
[2016-09-20] MEDS: AZITHROMYCIN INJ 500 MG in SODIUM CHLOR 0.9% 250 ML INJ 250 ML IV SCH (08:19)
[2016-09-20] MEDS: PIPERACIL-TAZO 4.5 GM PREMIX 100 ML IV SCH ×3 (08:21→19:59)
[2016-09-20] MEDS ORDERED: SODIUM BICARBONATE 8.4% INJ 50 MEQ/50 ML SYR IV ONE (09:00)
--- NOTE | 2016-09-20 10:22 | PD.PROCEDR ---
Procedure Note Procedure Procedure: Fiberoptic Bronchoscopy Diagnosis: Hypoxemia, acute respiratory failure Indications: Hypoxemia Consent: Emergent Anesthesia: see MAR Description of the Procedure: The patient was sedated and mechanically ventilated. The patient was placed on 100% FIO2 and a volume control mode of ventilation. The fiberoptic bronchoscopy was inserted via 8.0 ETT The trachea, right and left mainstem bronchi, and sub-segmental bronchi were evaluated. The endobronchial anatomy was normal. Findings: Copious mucopurulent yellow greenish drainage bilateral lobes BAL samples: 2 The patient tolerated the procedure well with no hemodynamic instability or hypoxia. There were no immediate complications noted. At the conclusion of the procedure, the patient was placed back on their pre-procedure ventilatory settings. There was minimal EBL. A chest x-ray has been ordered. I personally performed the procedure. Idania Palomares MD Sep 20, 2016 10:22
--- NOTE | 2016-09-20 10:38 | HHI.CCPN ---
Subjective Remarks/Hospital Course 50-year-old female arrives with altered mental status by EMS. Per chart documentation the patient had most likely intentional overdose of Robaxin as well as possible overdose of Klonopin. Apparently this is the birthday of her mother . The patient on arrival was a GCS of 3, and was intubated by ED attending for an airway protection. Subjective: 09/19: Discussed with poison control, repeat EKG performed for comparison noted QT prolongation resolved. Sodium bicarbonate discontinued post repeat BMP the patient is noted to be hypokalemic as well as hypophosphatemic currently being repleted . Plan for CPAP trials 09/20: Overnight the patient became severely hypoxemic, with noted copious amounts of thick greenish yellowish secretions. ETT change to a larger size 7.5 from 6.0, PaO2 was noted to be 81 on 70%. This a.m. bronchoscopy performed noted copious amount of greenish yellowish purulent drainage noted, BAL samples obtained. Bicarbonate infusion was discontinued per poison control recommendations last evening. Noted bicarbonate level was 19 this a.m. The patient received 2 Amps of sodium bicarbonate given. Repeat ABG pending, post bronchoscopy. Objective Vital Signs Date Time Temp Pulse Resp B/P Pulse Ox O2 Delivery O2 Flow Rate FiO2 09/20/16 06:00 122 09/20/16 04:30 98 50 09/20/16 04:00 99.1 24 122/69 09/18/16 21:51 Ventilator 15 Intake and Output 09/19/16 09/19/16 09/20/16 08:00 16:00 00:00 Intake Total 1264 ml 993 ml 499 ml Output Total 600 ml 300 ml 251 ml Balance 664 ml 693 ml 248 ml Result Diagram: 09/20/16 0501 09/20/16 0521 Other Results Laboratory Tests Test 09/19/16 09/20/16 15:19 05:20 Blood Gas Puncture Site RT RADIAL RT RADIAL Blood Gas Patient Temperature 98.6 98.6 Blood Gas HCO3 20 mmol/L 19 mmol/L (22-26) (22-26) Blood Gas Base Excess -3.5 mmol/L -6.7 mmol/L (-2-2) (-2-2) Blood Gas Oxygen Saturation 95 % (90-100) 92 % (90-100) Arterial Blood pH 7.43 7.26 (7.380-7.420) (7.380-7.420) Arterial Blood Partial 31 mmHg (38-42) 44 mmHg (38-42) Pressure CO2 Arterial Blood Partial 92 mmHg 82 mmHg Pressure O2 (61-120) (61-120) Arterial Blood Oxygen Content 17.4 Vol % 17.8 Vol % (12.0-20.0) (12.0-20.0) Arterial Blood 1.1 % (0-4) 0.8 % (0-4) Carboxyhemoglobin Arterial Blood Methemoglobin 1.6 % (0-2) 1.7 % (0-2) Blood Gas Hemoglobin 13.0 G/DL 13.7 G/DL (12.0-16.0) (12.0-16.0) Oxygen Delivery Device VENTILATOR VENTILATOR Blood Gas Ventilator Setting 450/14/+5 AC14/450/+8 Blood Gas Inspired Oxygen 30 % 70 % Imaging Last [address] 09/18/161811 Signed Impressions: Service Date/Time: August 23:18 - CONCLUSION: No acute intracranial findings. Frde Cardoza MD Chest X-Ray 09/18/161811 Signed Impressions: Service Date/Time: August 18:16 - CONCLUSION: 1. Endotracheal tube and nasogastric tube in satisfactory position. No acute findings. Nick Hassan MD Objective Remarks GENERAL: Well-developed well-nourished female appearing older than stated age SKIN: Warm and dry. HEAD: Normocephalic. EYES: No scleral icterus. No injection or drainage. NECK: Supple, trachea midline. No JVD or lymphadenopathy. CARDIOVASCULAR: Rate, sinus tachycardia and rhythm without murmurs, gallops, or rubs. RESPIRATORY: Breath sounds equal bilaterally. No accessory muscle use. GASTROINTESTINAL: Abdomen soft, non-tender, nondistended. MUSCULOSKELETAL: No cyanosis, or edema. EXTREMITIES: No clubbing cyanosis or edema Procedures 09/20 bronchoscopy with BAL Urinary Catheter: Yes Date of Insertion: Sep 18, 2016 A/P Assessment and Plan Respiratory failure -09/18 Intubated for an airway protection - Extubation or weaning until neurologically improved - Chest x-ray and ABG daily -Daily CPAP trials when clinically indicated -09/20 Bronchoscopy with BAL -DuoNeb every 6 hours schedule every 2 hours when necessary -Mechanical ventilation 14/450/8/100%, continue to wean FiO2 Metabolic acidosis - 09/19 Sodium bicarbonate drip discontinued -09/20 2 amps sodium bicarbonate IV push, continue to closely monitor - Monitor pH trend - IV hydration normal saline 1 L bolus, continued infusion 125 cc/hour -Creatnine Kinase pending Suicidal attempt - Psychiatry evaluation when extubated -Lopez Act in place Overdose - IV fluids - Serial labs - Obtain CK level, follow-up results -Repeat EKG obtained yesterday, QT prolongation resolved, no further recommendations per poison control Probable aspiration pneumonia Fever -Sputum culture -Blood urine cultures -2-D echo R/O endocarditis DVT GI prophylaxis - Teds SCDs - Subcutaneous heparin and Pepcid Dispo: Discussed with MACHINE FINISHER at bedside and contacted Poison Control Aurora Munoz RN - Supportive Care only at this point. Patient significantly hypoxemic early this a.m., unable to obtain consent. Bronchoscopy with BAL washings performed emergently. Critical Care: This patient remains critically ill with one or more organ systems which are or may become a threat to life. I have spent in excess of 39 minutes discontinuously in the care and management of this patient. This time is exclusive of procedures, and includes, but is not limited to, evaluation of the patient, review of the medical record, discussions with family, consultants, nursing staff, or respiratory therapy, and documentation in the medical record. Physician Idania Verdin MD Sep 20, 2016 10:38
[2016-09-20] MEDS: RESP: ALBUTEROL 2.5 MG/IPRATROPIUM 0.5 MG NEB (SCH) NEB ×3 (10:45→20:39)
--- NOTE | 2016-09-20 10:52 | RADRPT ---
EXAM DATE/TIME: 09/20/2016 10:06 [facility] COMPARISON: CHEST SINGLE AP, September 20, 2016, 2:44. INDICATIONS : Post bronchoscopy. MEDICAL HISTORY : None. SURGICAL HISTORY : None. ENCOUNTER: Subsequent ACUITY: 3 days PAIN SCORE: Non-responsive. LOCATION: Bilateral chest FINDINGS: ET tube and nasogastric tube are in good position. There are increasing combined changes right lung base. Minimal parenchymal changes are present on the left. The heart and pulmonary vascularity are n ormal. CONCLUSION: Increasing consolidation on the right as described above. Carlos Narvaez MD FACR on September 20, 2016 at 10:49 Board Certified Radiologist. This report was verified electronically.
[2016-09-20] MEDS ORDERED: CALCIUM GLUCONATE INJ 2 GM in DEXTROSE 5% IN WATER 100ML INJ 100 ML IV ONE ×2 (11:00)
[2016-09-20 12:21] LABS: BLOOD GAS BASE EXCESS -2.2 mmol/L (-2-2); BLOOD GAS CARBOXYHEMOGLOBIN 0.8 % (0-4); BLOOD GAS HCO3 23 mmol/L (22-26); BLOOD GAS METHEMOGLOBIN 1.5 % (0-2); BLOOD GAS O2 HGB SATURATION 92 % (90-100); BLOOD GAS OXYGEN CONTENT 16.6 Vol % (12.0-20.0); BLOOD GAS PCO2 47 mmHg (38-42); BLOOD GAS PO2 72 mmHg (61-120); BLOOD GAS TOTAL HGB 12.9 G/DL (12.0-16.0); CRITICAL VALUE NO; OXYGEN DEVICE VENTILATOR; TEMP CORR TO 98.6; VENT SETTINGS 450/14/PEEP8
[2016-09-20 12:22] LABS: DRAW SITE LT RADIAL; FIO2 70 %; NUMBER OF ARTERIAL PUNCTURES 1; STAT NO; ULNAR PULSE PRESENT
[2016-09-20 14:48] LABS: CKMB 8.9 NG/ML (0.5-3.6)
--- NOTE | 2016-09-20 16:42 | ECHRPT ---
Indication: endocarditis CONCLUSIONS Dilated left ventricle. Wall thickness is measured at the upper limits of normal. The left ventricular systolic function is severely reduced with an estimated ejection fraction in th e range of 30%. The right ventricular systoilc function is mildly decreased. The right atrium is not well visualized. The interatrial septum not well visualized. Mild mitral valve regurgitation. Posible small vegetation seen on mitral valveThe aortic valve is not well visualized. No aortic valve regurgitation. No aortic valve stenosis. The tricuspid valve is not well visualized. There is mild tricuspid valve regurgitation. The pulmonary valve is not well visualized. The inferior vena cava was not well visualized. BP: / HR: Rhythm: MEASUREMENTS (Male / Female) Normal Values Technical Quality:Fair., Technically difficult rosa maria dy 2D ECHO LV Diastolic Diameter PLAX 4.4 cm 4.2 - 5.9 / 3.9 - 5.3 cm LV Systolic Diameter PLAX 4.1 cm IVS Diastolic Thickness 1.0 cm 0.6 - 1.0 / 0.6 - 0.9 cm LVPW Diastolic Thickness 1.1 cm 0.6 - 1.0 / 0.6 - 0.9 cm LV Relative Wall Thickness 0.5 RV Internal Dim ED PLAX 2.1 cm M-MODE Aortic Root Diameter MM 2.9 cm LA Systolic Diameter MM 3.0 cm LA Ao Ratio MM 1.0 AV Cusp Separation MM 1.9 cm DOPPLER Mitral E Point Velocity 65.2 cm/s Mitral A Point Velocity 78.0 cm/s Mitral E to A Ratio 0.8 TR Peak Velocity 219.0 cm/s TR Peak Gradient 19.2 mmHg FINDINGS LEFT VENTRICLE Dilated left ventricle. Wall thickness is measured at the upper limits of normal. The left ventricular systolic function is severely reduced with an estimated ejection fraction in th e range of 20-25%. RIGHT VENTRICLE The right ventricular systoilc function is mildly decreased. LEFT ATRIUM The left atrial size is normal. RIGHT ATRIUM The right atrium is not well visualized. The right atrial size is normal. ATRIAL SEPTUM The interatrial septum not well visualized. AORTA The aortic root and proximal ascending aorta are normal in size on limited imaging. MITRAL VALVE Mild mitral valve regurgitation. Posible small vegetation seen on mitral valve AORTIC VALVE The aortic valve is not well visualized. No aortic valve regurgitation. No aortic valve stenosis. TRICUSPID VALVE The tricuspid valve is not well visualized. Structurally normal tricuspid valve. There is mild tricuspid valve regurgitation. PULMONARY VALVE The pulmonary valve is not well visualized. VESSELS The inferior vena cava was not well visualized. PERICARDIUM No pericardial effusion. Juliano Zamorano MD (Electronically Signed) Final Date:20 September 2016 16:41
--- NOTE | 2016-09-20 16:43 | EKG ---
Date Performed: 09/19/2016 Time Performed: 16:07:06 PTAGE: 50 years EKG: Sinus tachycardia with short OR interval Diffuse nonspecific ST-T wave change Since PREVIOUS TRACING , heart rate is faster and the ST-T changes are new. PREVIOUS TRACIN 09/18/2016 18.23 DOCTOR: Jarrett Artis Interpretating Date/Time 09/20/2016 16:43:43
[2016-09-20] MEDS: SODIUM BICARBONATE 8.4% INJ 150 MEQ in DEXTROSE 5% IN WATE 1000ML INJ 850 ML IV SCH ×2 (18:50)
[2016-09-20] MEDS: ENOXAPARIN SODIUM 40 MG/0.4 ML SYRINGE SQ SCH (19:59)
[2016-09-20] MEDS: SODIUM CHLORIDE 0.9% FLUSH 10 ML FLUSH PRN (19:59)
[2016-09-21] VITALS (36 sets, daily range): BP systolic 88–104; BP diastolic 52–67; PULSE 85–118; RESP 17–25; TEMP 98.5–99.6; O2SAT 97–100
[2016-09-21] MEDS: PIPERACIL-TAZO 4.5 GM PREMIX 100 ML IV SCH ×4 (01:51→21:09)
[2016-09-21] MEDS: CHLORHEXIDINE GLUCONATE 2 % 1 PACK (2 CLOTHS) TOP SCH (04:00)
[2016-09-21] MEDS: RESP: ALBUTEROL 2.5 MG/IPRATROPIUM 0.5 MG NEB (SCH) NEB ×5 (04:07→22:00)
[2016-09-21] MEDS: SODIUM BICARBONATE 8.4% INJ 150 MEQ in DEXTROSE 5% IN WATE 1000ML INJ 850 ML IV SCH ×2 (04:27)
--- NOTE | 2016-09-21 04:54 | RADRPT ---
EXAM DATE/TIME: 09/21/2016 03:35 [facility] COMPARISON: CHEST SINGLE AP, September 20, 2016, 10:06. INDICATIONS : Respiratory failure, intubation MEDICAL HISTORY : None. SURGICAL HISTORY : None. ENCOUNTER: Subsequent ACUITY: 4 - 6 days PAIN SCORE: Non-responsive. LOCATION: Bilateral chest FINDINGS: A single view of the chest demonstrates persistent infiltrate in the right lower lobe unchanged. The endotracheal tube and nasogastric both in good position.. The cardiomediastinal contours are unremar kable. Osseous structures are intact. CONCLUSION: Persistent consolidation right lower lobes unchanged Harsh Chairez MD on September 21, 2016 at 4:52 Board Certified Radiologist. This report was verified electronically.
[2016-09-21] MEDS: PROPOFOL 1000 MG/100 ML INJ 100 ML IV SCH ×2 (05:54→22:24)
[2016-09-21 06:11] LABS: AUTOMATED NEUTROPHIL # 17.7 TH/MM3 (1.8-7.7); BASOPHIL # 0.2 TH/MM3 (0-0.2); BASOPHIL % 1.1 % (0.0-2.0); EOSINOPHIL # 0.1 TH/MM3 (0-0.4); EOSINOPHIL % 0.3 % (0.0-4.0); HEMATOCRIT 34.4 % (35.0-46.0); LYMPH % 3.9 % (9.0-44.0); LYMPHOCYTE # 0.8 TH/MM3 (1.0-4.8); MEAN CELL VOLUME 87.6 FL (80.0-100.0); MEAN CORPUSCULAR HEMOGLOBIN 29.7 PG (27.0-34.0); MEAN CORPUSCULAR HGB CONC 33.9 % (32.0-36.0); MONO % 6.1 % (0.0-8.0); NEUT % 88.6 % (16.0-70.0); PLATELET COUNT 138 TH/MM3 (150-450); RED BLOOD COUNT 3.93 MIL/MM3 (4.00-5.30); RED CELL DISTRIBUTION WIDTH 13.8 % (11.6-17.2)
[2016-09-21 06:15] LABS: HEMO FLAGS AUTO DIFF
[2016-09-21 06:46] LABS: BICARBONATE 30.3 MEQ/L (21.0-32.0); CALCIUM-PROTEIN CORRECTED 7.8 MG/DL (8.5-10.1); MAGNESIUM 1.8 MG/DL (1.5-2.5)
[2016-09-21 06:51] LABS: POTASSIUM 2.9 MEQ/L (3.5-5.1)
[2016-09-21] MEDS: POTASSIUM CHLOR 20 MEQ PREMIX 100 ML IV PRN (06:53)
[2016-09-21] MEDS: POTASSIUM PHOSPHATE INJ 30 MMOL in SODIUM CHLOR 0.9% 250 ML INJ 250 ML IV PRN (07:52)
[2016-09-21 08:18] LABS: BANDS 23 % (0-6); METAMYELOCYTES 7 % (0-1); MYELOCYTES 1 % (0-0); NEUTROPHIL # MANUAL DIFF 17.2 TH/MM3 (1.8-7.7); POLYS (SEG NEUTROPHILS) 55 % (16-70); WBC DIFF SAMPLE 100
[2016-09-21 08:19] LABS: PLATELET ESTIMATE SMEAR LOW (NORMAL); PLATELET MORPHOLOGY NORMAL (NORMAL); SCAN/DIFF FINAL DIFF MANUAL
[2016-09-21] MEDS: SODIUM CHLORIDE 0.9% FLUSH 10 ML FLUSH SCH ×2 (08:59→21:10)
[2016-09-21] MEDS: AZITHROMYCIN INJ 500 MG in SODIUM CHLOR 0.9% 250 ML INJ 250 ML IV SCH (09:00)
[2016-09-21] MEDS: FAMOTIDINE 20 MG/2 ML VIAL IV PUSH SCH ×2 (09:00→21:00)
[2016-09-21] MEDS: DOCUSATE SODIUM 50 MG/SENNA 8.6 MG TAB PO SCH ×2 (09:00→21:10)
[2016-09-21 09:09] LABS: BLOOD GAS BASE EXCESS 7.6 mmol/L (-2-2); BLOOD GAS CARBOXYHEMOGLOBIN 1.1 % (0-4); BLOOD GAS HCO3 31 mmol/L (22-26); BLOOD GAS METHEMOGLOBIN 1.3 % (0-2); BLOOD GAS O2 HGB SATURATION 97 % (90-100); BLOOD GAS OXYGEN CONTENT 17.7 Vol % (12.0-20.0); BLOOD GAS PCO2 43 mmHg (38-42); BLOOD GAS PO2 134 mmHg (61-120); BLOOD GAS TOTAL HGB 12.9 G/DL (12.0-16.0); CRITICAL VALUE NO; FIO2 55 %; NUMBER OF ARTERIAL PUNCTURES 1; OXYGEN DEVICE VENTILATOR; TEMP CORR TO 98.6; ULNAR PULSE PRESENT; VENT SETTINGS 450/AC14/PEEP6
[2016-09-21 09:10] LABS: DRAW SITE RT RADIAL; STAT NO
[2016-09-21] MEDS: SODIUM CHLOR 0.9% 1000 ML INJ 1,000 ML IV SCH ×2 (10:11→21:10)
--- NOTE | 2016-09-21 15:20 | HHI.CCPN ---
Subjective Remarks/Hospital Course 50-year-old female arrives with altered mental status by EMS. Per chart documentation the patient had most likely intentional overdose of Robaxin as well as possible overdose of Klonopin. Apparently this is the birthday of her mother . The patient on arrival was a GCS of 3, and was intubated by ED attending for an airway protection. Subjective: 09/19: Discussed with poison control, repeat EKG performed for comparison noted QT prolongation resolved. Sodium bicarbonate discontinued post repeat BMP the patient is noted to be hypokalemic as well as hypophosphatemic currently being repleted . Plan for CPAP trials 09/20: Overnight the patient became severely hypoxemic, with noted copious amounts of thick greenish yellowish secretions. ETT change to a larger size 7.5 from 6.0, PaO2 was noted to be 81 on 70%. This a.m. bronchoscopy performed noted copious amount of greenish yellowish purulent drainage noted, BAL samples obtained. Bicarbonate infusion was discontinued per poison control recommendations last evening. Noted bicarbonate level was 19 this a.m. The patient received 2 Amps of sodium bicarbonate given. Repeat ABG pending, post bronchoscopy. 09/21: Remains sedated, orally intubated on mechanical ventilation. Bicarbonate drip. This morning due to improvement in metabolic acidosis. Continues to have thick greenish pulmonary secretions. Objective Vital Signs Date Time Temp Pulse Resp B/P Pulse Ox O2 Delivery O2 Flow Rate FiO2 09/21/16 13:24 98 45 09/21/16 10:30 115 22 90/52 09/21/16 08:00 99.6 09/18/16 21:51 Ventilator 15 Intake and Output 09/20/16 09/20/16 09/21/16 08:00 16:00 00:00 Intake Total 142 ml 1030 ml 1328 ml Output Total 400 ml 375 ml 401 ml Balance -258 ml 655 ml 927 ml Result Diagram: 09/21/16 0438 09/21/16 0438 Other Results Laboratory Tests Test 09/21/16 09:02 Blood Gas Puncture Site RT RADIAL Blood Gas Patient Temperature 98.6 Blood Gas HCO3 31 mmol/L (22-26) Blood Gas Base Excess 7.6 mmol/L (-2-2) Blood Gas Oxygen Saturation 97 % (90-100) Arterial Blood pH 7.48 (7.380-7.420) Arterial Blood Partial 43 mmHg (38-42) Pressure CO2 Arterial Blood Partial 134 mmHg Pressure O2 (61-120) Arterial Blood Oxygen Content 17.7 Vol % (12.0-20.0) Arterial Blood 1.1 % (0-4) Carboxyhemoglobin Arterial Blood Methemoglobin 1.3 % (0-2) Blood Gas Hemoglobin 12.9 G/DL (12.0-16.0) Oxygen Delivery Device VENTILATOR Blood Gas Ventilator Setting 450/AC14/PEEP6 Blood Gas Inspired Oxygen 55 % Imaging Last [address] 09/18/161811 Signed Impressions: Service Date/Time: , September 18, 2016 23:18 - CONCLUSION: No acute intracranial findings. Fred Cardoza MD Chest X-Ray 09/18/161811 Signed Impressions: Service Date/Time: , September 18, 2016 18:16 - CONCLUSION: 1. Endotracheal tube and nasogastric tube in satisfactory position. No acute findings. Nick Hassan MD Objective Remarks GENERAL: Well-developed well-nourished female appearing older than stated age SKIN: Warm and dry. HEAD: Normocephalic. EYES: No scleral icterus. No injection or drainage. NECK: Supple, trachea midline. No JVD or lymphadenopathy. CARDIOVASCULAR: Rate, sinus tachycardia and rhythm without murmurs, gallops, or rubs. RESPIRATORY: Breath sounds equal bilaterally. No accessory muscle use. GASTROINTESTINAL: Abdomen soft, non-tender, nondistended. MUSCULOSKELETAL: No cyanosis, or edema. EXTREMITIES: No clubbing cyanosis or edema Procedures 09/20 bronchoscopy with BAL Date of Insertion: Sep 18, 2016 A/P Assessment and Plan Respiratory failure -09/18 Intubated for an airway protection - Extubation or weaning until neurologically improved - Chest x-ray and ABG daily -Daily CPAP trials when clinically indicated -09/20 Bronchoscopy with BAL -DuoNeb every 6 hours schedule every 2 hours when necessary. Added Mucomyst nebs/ chest PT 0n 09/21 -Mechanical ventilation 14/450/8/45%, continue to wean FiO2 Metabolic acidosis - 09/21 Sodium bicarbonate drip discontinued - Monitor pH trend - IV hydration normal saline Suicidal attempt - Psychiatry evaluation when extubated -Lopez Act in place Overdose - IV fluids - Serial labs - Obtain CK level, follow-up results -Repeat EKG obtained yesterday, QT prolongation resolved, no further recommendations per poison control Probable aspiration pneumonia Fever -Sputum culture -Blood urine cultures -2-D echo R/O endocarditis DVT GI prophylaxis - Teds SCDs - Subcutaneous heparin and Pepcid Bronchoscopy with BAL washings performed emergently on 09/21 Critical Care: This patient remains critically ill with one or more organ systems which are or may become a threat to life. I have spent in excess of 35 minutes discontinuously in the care and management of this patient. This time is exclusive of procedures, and includes, but is not limited to, evaluation of the patient, review of the medical record, discussions with family, consultants, nursing staff, or respiratory therapy, and documentation in the medical record. Ismael Luu MD Sep 21, 2016 15:20
[2016-09-21] MEDS: RESP: ACETYLCYSTEINE 10% 30 ML NEB NEB SCH (21:09)
[2016-09-21] MEDS: ENOXAPARIN SODIUM 40 MG/0.4 ML SYRINGE SQ SCH (21:10)
[2016-09-22] VITALS (46 sets, daily range): BP systolic 94–135; BP diastolic 56–77; PULSE 85–102; RESP 14–42; TEMP 98–99.5; O2SAT 98–100
[2016-09-22] MEDS: RESP: ACETYLCYSTEINE 10% 30 ML NEB NEB SCH ×4 (00:10→23:27)
[2016-09-22] MEDS: RESP: ALBUTEROL 2.5 MG/IPRATROPIUM 0.5 MG NEB (SCH) NEB ×7 (00:10→23:27)
[2016-09-22] MEDS: POTASSIUM CHLORIDE 25 MEQ EFFERVESCENT TAB PO PRN (00:25)
[2016-09-22] MEDS: PIPERACIL-TAZO 4.5 GM PREMIX 100 ML IV SCH ×3 (02:44→14:00)
[2016-09-22] MEDS: CHLORHEXIDINE GLUCONATE 2 % 1 PACK (2 CLOTHS) TOP SCH (04:00)
[2016-09-22 04:45] LABS: AUTOMATED NEUTROPHIL # 16.4 TH/MM3 (1.8-7.7); BASOPHIL # 0.1 TH/MM3 (0-0.2); BASOPHIL % 0.5 % (0.0-2.0); EOSINOPHIL # 0.2 TH/MM3 (0-0.4); EOSINOPHIL % 0.9 % (0.0-4.0); HEMATOCRIT 31.7 % (35.0-46.0); HEMO FLAGS DIFF FINAL; LYMPH % 7.2 % (9.0-44.0); LYMPHOCYTE # 1.4 TH/MM3 (1.0-4.8); MEAN CELL VOLUME 88.7 FL (80.0-100.0); MEAN CORPUSCULAR HEMOGLOBIN 30.1 PG (27.0-34.0); MEAN CORPUSCULAR HGB CONC 33.9 % (32.0-36.0); NEUT % 85.4 % (16.0-70.0); PLATELET COUNT 108 TH/MM3 (150-450); RED BLOOD COUNT 3.58 MIL/MM3 (4.00-5.30); RED CELL DISTRIBUTION WIDTH 13.7 % (11.6-17.2); WHITE BLOOD COUNT 19.2 TH/MM3 (4.0-11.0)
[2016-09-22] MEDS: PROPOFOL 1000 MG/100 ML INJ 100 ML IV SCH ×3 (05:07→22:40)
[2016-09-22 05:10] LABS: BICARBONATE 26.1 MEQ/L (21.0-32.0); POTASSIUM 4.2 MEQ/L (3.5-5.1); TOTAL BILIRUBIN ADULT 1.1 MG/DL (0.2-1.0)
[2016-09-22] MEDS: DOCUSATE SODIUM 50 MG/SENNA 8.6 MG TAB PO SCH ×2 (07:48→21:14)
[2016-09-22] MEDS: FAMOTIDINE 20 MG/2 ML VIAL IV PUSH SCH ×2 (09:31→21:14)
[2016-09-22] MEDS: SODIUM CHLORIDE 0.9% FLUSH 10 ML FLUSH PRN (09:31)
[2016-09-22] MEDS: AZITHROMYCIN INJ 500 MG in SODIUM CHLOR 0.9% 250 ML INJ 250 ML IV SCH (09:31)
[2016-09-22] MEDS: SODIUM CHLOR 0.9% 1000 ML INJ 1,000 ML IV SCH ×2 (09:32→22:40)
[2016-09-22] MEDS: SODIUM CHLORIDE 0.9% FLUSH 10 ML FLUSH SCH ×2 (09:32→21:13)
[2016-09-22 11:53] LABS: C. DIFF EPI 027 PRESUMPTIVE NEGATIVE (NEGATIVE); C. DIFF TOXIN PCR NEGATIVE (NEGATIVE)
--- NOTE | 2016-09-22 15:03 | HHI.CCPN ---
Subjective Remarks/Hospital Course 50-year-old female arrives with altered mental status by EMS. Per chart documentation the patient had most likely intentional overdose of Robaxin as well as possible overdose of Klonopin. Apparently this is the birthday of her mother . The patient on arrival was a GCS of 3, and was intubated by ED attending for an airway protection. Subjective: 09/19: Discussed with poison control, repeat EKG performed for comparison noted QT prolongation resolved. Sodium bicarbonate discontinued post repeat BMP the patient is noted to be hypokalemic as well as hypophosphatemic currently being repleted . Plan for CPAP trials 09/20: Overnight the patient became severely hypoxemic, with noted copious amounts of thick greenish yellowish secretions. ETT change to a larger size 7.5 from 6.0, PaO2 was noted to be 81 on 70%. This a.m. bronchoscopy performed noted copious amount of greenish yellowish purulent drainage noted, BAL samples obtained. Bicarbonate infusion was discontinued per poison control recommendations last evening. Noted bicarbonate level was 19 this a.m. The patient received 2 Amps of sodium bicarbonate given. Repeat ABG pending, post bronchoscopy. 09/21: Remains sedated, orally intubated on mechanical ventilation. Bicarbonate drip stopped this morning due to improvement in metabolic acidosis. Continues to have thick greenish pulmonary secretions. 09/22: Remains sedated, orally intubated on mechanical ventilation Objective Vital Signs Date Time Temp Pulse Resp B/P Pulse Ox O2 Delivery O2 Flow Rate FiO2 09/22/16 13:38 100 40 09/22/16 12:00 86 09/22/16 12:00 99.3 20 104/63 09/18/16 21:51 Ventilator 15 Intake and Output 09/21/16 09/21/16 09/22/16 08:00 16:00 00:00 Intake Total 724 ml 1469 ml 746 ml Output Total 325 ml 700 ml 650 ml Balance 399 ml 769 ml 96 ml Result Diagram: 09/22/16 0343 09/22/16 0343 Other Results Microbiology Date/Time Procedure Status Source Growth 09/20/16 10:15 Urine Culture - Final Complete Urine Catheterized Urine Escherichia Coli Esbl Positive Imaging Last [address] 09/18/16 1812 Signed Impressions: Service Date/Time: August 23:18 - CONCLUSION: No acute intracranial findings. Fred Cardoza MD Chest X-Ray 09/18/16 1812 Signed Impressions: Service Date/Time: , September 18, 2016 18:16 - CONCLUSION: 1. Endotracheal tube and nasogastric tube in satisfactory position. No acute findings. Nick Hassan MD Objective Remarks GENERAL: Well-developed well-nourished female appearing older than stated age SKIN: Warm and dry. HEAD: Normocephalic. EYES: No scleral icterus. No injection or drainage. NECK: Supple, trachea midline. No JVD or lymphadenopathy. CARDIOVASCULAR: Rate, sinus tachycardia and rhythm without murmurs, gallops, or rubs. RESPIRATORY: Breath sounds equal bilaterally. No accessory muscle use. GASTROINTESTINAL: Abdomen soft, non-tender, nondistended. MUSCULOSKELETAL: No cyanosis, or edema. EXTREMITIES: No clubbing cyanosis or edema Procedures 09/20 bronchoscopy with BAL Date of Insertion: Sep 18, 2016 A/P Assessment and Plan Acute Respiratory failure -09/18 Intubated for an airway protection - Chest x-ray and ABG daily -Daily CPAP trials -09/20 Bronchoscopy with BAL -DuoNeb every 6 hours schedule every 2 hours when necessary. Added Mucomyst nebs/ chest PT on 09/21 -Mechanical ventilation 14/450/8/45%, continue to wean FiO2 Metabolic acidosis - 09/21 Sodium bicarbonate drip discontinued - Monitor pH trend - IV hydration normal saline Suicidal attempt - Psychiatry evaluation when extubated -Lopez Act in place Overdose - IV fluids - Serial labs - Obtain CK level, follow-up results -Repeat EKG 09/19, QT prolongation resolved, no further recommendations per poison control Probable aspiration pneumonia Sepsis Suspected endocarditis - ? mitral valve vegetation on echo On azithromycin/Zosyn for empiric antibiotic coverage. -Follow-up blood and sputum cultures. Urine culture with ESBL Escherichia coli. ID consult requested as patient probably needs to be switched to a carbapenem. -2-D echo with suspected mitral valve vegetation- consulted ID 09/22. DVT GI prophylaxis - Teds SCDs - Subcutaneous heparin and Pepcid Bronchoscopy with BAL washings performed emergently on 09/21 Critical Care: This patient remains critically ill with one or more organ systems which are or may become a threat to life. I have spent in excess of 35 minutes discontinuously in the care and management of this patient. This time is exclusive of procedures, and includes, but is not limited to, evaluation of the patient, review of the medical record, discussions with family, consultants, nursing staff, or respiratory therapy, and documentation in the medical record. Ismael Luu MD Sep 22, 2016 15:02
[2016-09-22] MEDS ORDERED: ASP: Path resistant to other antimicrobials, culture proven PRN (16:00)
[2016-09-22] MEDS ORDERED: MISCELLANEOUS PHARMACY INFORMATION XX PRN ×2 (16:00)
[2016-09-22] MEDS: IMIPENEM/CILASTATIN INJ 500 MG in SODIUM CHLORIDE 0.9% INJ 100 ML IV SCH ×2 (18:45→22:38)
--- NOTE | 2016-09-22 18:54 | ECHRPT ---
Indication: Other nonrheumatic mitral valve disorders CONCLUSIONS Mildly dilated left ventricle. The left ventricular systolic function is severely reduced with an estimated ejection fraction in th e range of 25-30%. There is global left ventricular dysfunction. Structurally normal mitral valve. Mild mitral valve regurgitation. Trace aortic valve regurgitation. No evidence of endocarditis BP: / HR: Rhythm: Sinus Technical Quality:Good Medications Complications None Proc. Components FINDINGS LEFT VENTRICLE Wall thickness is normal. The left ventricular systolic function is severely reduced with an estimated ejection fraction in th e range of 25-30%. Mildly dilated left ventricle. There is global left ventricular dysfunction. RIGHT VENTRICLE The right ventricular systoilc function is mildly decreased. The right ventricular size is normal. LEFT ATRIUM The left atrial size is normal. RIGHT ATRIUM The right atrium is not well visualized. ATRIAL APPENDAGES Normal left atrial appendage size with no evidence of thrombus formation. ATRIAL SEPTUM Normal atrial septal thickness without atrial level shunting by limited color doppler interrogation. MITRAL VALVE Structurally normal mitral valve. Mild mitral valve regurgitation. No mitral valve stenosis. AORTIC VALVE Trileaflet aortic valve. Trace aortic valve regurgitation. No aortic valve stenosis. TRICUSPID VALVE The tricuspid valve is structurally normal. No TR noted VESSELS The pulmonary valve is not well visualized. No pulmonary valve regurgitation or stenosis. Parker Triplett DO (Electronically Signed) Final Date:22 September 2016 18:53
--- NOTE | 2016-09-22 20:50 | MB ---
cc: JINA DOLL MD DATE OF CONSULTATION 09/22/[address] Cristóbal Luu REASON FOR CONSULTATION ESBL E coli in urine. Possible mitral valve vegetation. HISTORY OF PRESENT ILLNESS This is a 50-year-old white female who was brought to the emergency department following a drug overdose. The patient was noted to have intentionally overdosed on Robaxin and Klonopin. She was unresponsive in the emergency department and was intubated. The patient is currently in the intensive care unit on the ventilator. Workup included urine culture which has ESBL E-coli and bronch washing has gram-negative ann marie. Chest x-ray shows right lower lobe infiltrate. The patient has white blood cell count elevation and she had an episode of low-grade fever two days ago. She is currently sedated on the ventilator. A 2-D echocardiogram was performed and the atrium was not well visualized and there was noted to be a possible small vegetation on the mitral valve and the tricuspid valve was not well visualized. There was also mild mitral valve regurgitation noted. Further information on the patient is not available at this time. PAST MEDICAL HISTORY Unable to obtain. ALLERGIES Unable to obtain. MEDICATIONS 1. Piperacillin. 2. Azithromycin. 3. Pepcid. 4. Lovenox. 5. Mucomyst. 6. DuoNeb. SOCIAL HISTORY No tobacco or alcohol noted. Toxicology screen is positive for cannabinoids. FAMILY HISTORY Unable to obtain. REVIEW OF SYSTEMS Unable to obtain. PHYSICAL EXAMINATION GENERAL: This is a slender female who is on the ventilator. She briefly opens her eyes and moves her head but no other responses. VITAL SIGNS: Include temperature 99.3. Blood pressure 99/65 heart rate 90, respirations per ventilator. HEENT: Unable to fully assess. The pupils are symmetric, dilated. No icterus. Oropharynx intubated. NECK: Supple. No swelling or adenopathy. LUNGS: Rhonchi at both bases. HEART: Regular rate and rhythm. No audible murmurs or rubs or gallops. ABDOMEN: Soft, nontender. Bowel sounds audible. RECTAL: Not performed. EXTREMITIES: No clubbing or cyanosis. 1-2+ edema of the hands. No visible hemorrhages at the extremities. SKIN: No rash. NEUROLOGIC: Unable to fully assess. LABORATORY DATA WBC 19.2, platelets 108, hemoglobin 10.8. Creatinine 0.60, BUN 18, estimated GFR 107, AST 119, ALT 34, sodium 144. Bronch washing has gram-negative ann marie, heavy growth. Urine culture ESBL E-coli. IMPRESSION 1. ESBL E-coli. 2. Pneumonia due to gram-negative ann marie. 3. 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 4. Leukocytosis secondary to infection. 5. Acute respiratory failure, possibly aspiration as well following intubation with infiltrate having developed after intubation. RECOMMENDATIONS 1. Continue azithromycin. 2. Discontinue piperacillin / Tazobactam. 3. Begin imipenem to cover a ESBL E coli in the urine and also cover gram-negative bacteria in the lungs until further information is available on the sputum. 4. Obtain a new set of blood cultures. 5. I agree with ALIA for further evaluation of the heart valve and further investigation on the possible mitral valve vegetation. 6. Monitor clinical response. Thank you for this consultation. I will follow the patient's progress along with you and will make further recommendations on followup. Jina Doll MD FD/JOEL /3:45 PM /8:28 PM
[2016-09-22] MEDS: ENOXAPARIN SODIUM 40 MG/0.4 ML SYRINGE SQ SCH (21:14)
[2016-09-23] VITALS (47 sets, daily range): BP systolic 97–124; BP diastolic 52–80; PULSE 81–109; RESP 16–31; TEMP 98.4–99.9; O2SAT 93–100
[2016-09-23] MEDS: CHLORHEXIDINE GLUCONATE 2 % 1 PACK (2 CLOTHS) TOP SCH (03:00)
[2016-09-23] MEDS: RESP: ALBUTEROL 2.5 MG/IPRATROPIUM 0.5 MG NEB (SCH) NEB ×6 (04:31→23:21)
[2016-09-23] MEDS: IMIPENEM/CILASTATIN INJ 500 MG in SODIUM CHLORIDE 0.9% INJ 100 ML IV SCH ×4 (04:52→22:38)
[2016-09-23] MEDS: PROPOFOL 1000 MG/100 ML INJ 100 ML IV SCH (05:58)
--- NOTE | 2016-09-23 06:52 | MB ---
cc: PARKER HILARIO DO DATE OF CONSULTATION September 22, 2016 REASON FOR CONSULTATION Possible endocarditis. HISTORY OF PRESENT ILLNESS Don Duron is a 50-year-old female who originally arrived to [facility] on September 18, 2016, with altered mental status per EMS. The patient is currently intubated and unable to provide history so this is taken from the chart. There was a concern for intentional overdose of Robaxin as well as possible overdose of Klonopin. Apparently this was the anniversary of her mother's . On arrival her GCS was 3 and she was intubated. An echocardiogram was done on September 20, 2016, and there was concern for possible small vegetations on the mitral valve. Because of this I was asked to see the patient for consideration of ALIA. PAST MEDICAL HISTORY Unable to obtain due to the patient's current state, other than most likely attempted suicide on this admission. PAST SURGICAL HISTORY Unable to obtain due to the patient's current state. ALLERGIES Unable to obtain due to the patient's current state. MEDICATIONS Methocarbamol 500 mg t.i.d. for muscle spasm. SOCIAL HISTORY Unable to obtain due to current state. FAMILY HISTORY Unable to obtain due to current state. REVIEW OF SYSTEMS Unable to obtain due to current state. PHYSICAL EXAMINATION VITAL SIGNS: Temperature 98.8, heart rate 90, blood pressure 99/65, respirations 18, pulse ox 100% on an FIO2 of 40%. IN GENERAL: The patient is currently intubated and sedated. HEENT: Pupils are equal and round with no drainage. Mucous membranes moist. ET tube in place. NECK: Supple. No JVD at 45 degrees. No carotid bruits heard bilaterally. Carotid upstroke is brisk in nature. HEART: Regular rate and rhythm. Positive first and second heart sounds with no noted murmurs, gallops or rubs. LUNGS: Decreased breath sounds bilaterally but no overt wheezes, rales or rhonchi. ABDOMEN: Soft, non-tender, non-distended. No organomegaly noted. EXTREMITIES: No clubbing, cyanosis or edema. Femoral and distal pulses intact bilaterally. NEUROLOGICALL: Unable to obtain due to the patient currently being sedated. SKIN: Warm, dry and intact. OSTEOPATHICALLY: No kyphoscoliosis, lordosis or paraspinal tender points. LABORATORY FINDINGS Hemoglobin 10.8, hematocrit 31.7, platelets 108. Potassium 4.2, BUN 18, creatinine 0.6. ECHOCARDIOGRAM (September 20, 2016) Dilated left ventricle, ejection fraction of 30%, right ventricle systolically is mildly decreased. Possible small vegetation on the anterior mitral valve. Mild mitral and tricuspid regurgitation. IMPRESSIONS 1. Possible vegetation noted on echocardiogram on the anterior leaflet mitral valve. 2. Acute respiratory failure requiring intubation. 3. Suicide attempt with Robaxin and Klonopin. 4. Metabolic acidosis. 5. Possible aspiration pneumonia. RECOMMENDATIONS 1. As Ms. Duron does have possible vegetation on the anterior leaflet of her mitral valve, I feel that she should undergo ALIA. I reviewed the echocardiogram and it is unclear whether this is truly a vegetation and for full diagnostic measures, I feel the ALIA would be beneficial. 2. I have discussed this with her over the phone and he understands the risks, benefits and alternatives and gives consent. 3. The patient is currently n.p.o. and has not received tube feed and so we will plan on doing this this afternoon. 4. Further recommendations will be made after imaging. 5. It was noted that she had a new cardiomyopathy and she may need further workup for this depending on her hospital course. Thank you for allowing me to see Don Duron. If there are any questions, please do not hesitate to call. Parker Hilario DO VGP/SSB /6:10 PM /6:40 AM
[2016-09-23] MEDS: DOCUSATE SODIUM 50 MG/SENNA 8.6 MG TAB PO SCH ×2 (07:20→21:00)
[2016-09-23] MEDS: RESP: ACETYLCYSTEINE 10% 30 ML NEB NEB SCH ×3 (07:48→23:22)
[2016-09-23] MEDS: FAMOTIDINE 20 MG/2 ML VIAL IV PUSH SCH ×2 (08:21→21:30)
[2016-09-23] MEDS: AZITHROMYCIN INJ 500 MG in SODIUM CHLOR 0.9% 250 ML INJ 250 ML IV SCH (08:21)
[2016-09-23] MEDS: SODIUM CHLORIDE 0.9% FLUSH 10 ML FLUSH SCH ×2 (08:30→21:31)
[2016-09-23] MEDS ORDERED: RESP: RACEPINEPHRINE 2.25% 0.5 ML NEB NEB STA (10:11)
[2016-09-23] MEDS ORDERED: DEXAMETHASONE SOD PHOS 4 MG/ML VIAL IV PUSH STA (10:12)
--- NOTE | 2016-09-23 10:25 | HHI.CCPN ---
Subjective Remarks/Hospital Course 50-year-old female arrives with altered mental status by EMS. Per chart documentation the patient had most likely intentional overdose of Robaxin as well as possible overdose of Klonopin. Apparently this is the birthday of her mother . The patient on arrival was a GCS of 3, and was intubated by ED attending for an airway protection. Subjective: 09/19: Discussed with poison control, repeat EKG performed for comparison noted QT prolongation resolved. Sodium bicarbonate discontinued post repeat BMP the patient is noted to be hypokalemic as well as hypophosphatemic currently being repleted . Plan for CPAP trials 09/20: Overnight the patient became severely hypoxemic, with noted copious amounts of thick greenish yellowish secretions. ETT change to a larger size 7.5 from 6.0, PaO2 was noted to be 81 on 70%. This a.m. bronchoscopy performed noted copious amount of greenish yellowish purulent drainage noted, BAL samples obtained. Bicarbonate infusion was discontinued per poison control recommendations last evening. Noted bicarbonate level was 19 this a.m. The patient received 2 Amps of sodium bicarbonate given. Repeat ABG pending, post bronchoscopy. 09/21: Remains sedated, orally intubated on mechanical ventilation. Bicarbonate drip stopped this morning due to improvement in metabolic acidosis. Continues to have thick greenish pulmonary secretions. 09/22: Remains sedated, orally intubated on mechanical ventilation. 09/23: Remains sedated, orally intubated on mechanical ventilation. Arouses easily moving all 4 extremities. Initiated on C Pap trial. Objective Vital Signs Date Time Temp Pulse Resp B/P Pulse Ox O2 Delivery O2 Flow Rate FiO2 09/23/16 07:48 40 09/23/16 07:48 100 09/23/16 07:00 87 23 115/75 09/23/16 04:00 99.7 Intake and Output 09/22/16 09/22/16 09/23/16 08:00 16:00 00:00 Intake Total 964 ml 993 ml 1496 ml Output Total 550.0 ml 800 ml 625.0 ml Balance 414.0 ml 193 ml 871.0 ml Result Diagram: 09/22/16 0343 09/22/16 0343 Other Results Microbiology Date/Time Procedure Status Source Growth 09/20/16 10:15 Urine Culture - Final Complete Urine Catheterized Urine Escherichia Coli Esbl Positive Imaging Last [address] 09/18/161811 Signed Impressions: Service Date/Time: , September 18, 2016 23:18 - CONCLUSION: No acute intracranial findings. Fred Cardoza MD Chest X-Ray 09/18/161811 Signed Impressions: Service Date/Time: , September 18, 2016 18:16 - CONCLUSION: 1. Endotracheal tube and nasogastric tube in satisfactory position. No acute findings. Nick Hassan MD Objective Remarks GENERAL: Well-developed well-nourished female appearing older than stated age SKIN: Warm and dry. HEAD: Normocephalic. EYES: No scleral icterus. No injection or drainage. NECK: Supple, trachea midline. No JVD or lymphadenopathy. CARDIOVASCULAR: S1-S2 regular, without murmurs, gallops, or rubs. RESPIRATORY: On mechanical ventilation, orally intubated, good air entry bilaterally, scattered rhonchi, no wheezing GASTROINTESTINAL: Abdomen soft, non-tender, nondistended. MUSCULOSKELETAL: No cyanosis, or edema. EXTREMITIES: No clubbing cyanosis or edema Neuro: Arouse off sedation, moving all 4 extremities, following commands. Procedures 09/20 bronchoscopy with BAL Date of Insertion: Sep 18, 2016 A/P Assessment and Plan Acute Respiratory failure -09/18 Intubated for an airway protection -Daily CPAP trials -09/20 Bronchoscopy with BAL -DuoNeb every 6 hours schedule every 2 hours when necessary. Added Mucomyst nebs/ chest PT on 09/21 -On mechanical ventilation, tolerated C Pap trial and extubated to nasal cannula. Had some postextubation stridor for which ordered racemic epinephrine via nebulizer and Decadron 4 mg IV 1 dose. Metabolic acidosis - 09/21 Sodium bicarbonate drip discontinued - Monitor pH trend -We will KVO IV fluid in view of EF 30% noted on echo. Suicidal attempt - Psychiatry evaluation when extubated -Lopez Act in place Overdose - IV fluids - Serial labs - Obtain CK level, follow-up results -Repeat EKG 09/19, QT prolongation resolved, no further recommendations per poison control ? Mitral valve vegetation on transthoracic echo. ALIA done on 09/22 did not reveal any vegetations however LVEF noted to be 30%. Discussed with cardiology will eventually planned stress test for further evaluation. Probable aspiration pneumonia Sepsis On azithromycin/Zosyn for empiric antibiotic coverage. -Follow-up blood and sputum cultures. Urine culture with ESBL Escherichia coli. ID consult requested as patient probably needs to be switched to a carbapenem. -2-D echo with suspected mitral valve vegetation- consulted ID 09/22. DVT GI prophylaxis - Teds SCDs - Subcutaneous heparin and Pepcid Bronchoscopy with BAL washings performed emergently on 09/21 Discussed with FUNERAL DIRECTOR/EMBALMER/OWNER, discussed with Dr. Triplett from cardiology. Ismael Luu MD Sep 23, 2016 10:25
--- NOTE | 2016-09-23 11:15 | PD.CARD.PN ---
Subjective Subjective Remarks No events overnight Sedated on the vent Objective Medications Current Medications Medications (Trade) Dose Ordered Sig/Nisreen Route Start Time Stop Time Status Last Admin Potassium Chloride 100 ml @ 50 mls/hr Q2H PRN IV 09/18/16 19:30 (KCl 20 Meq Premix Inj) 100 ml @ 50 mls/hr Q2H PRN IV 09/18/16 19:30 09/21/16 06:53 Potassium Bicarb/ Potassium Chloride 50 meq 50 meq UNSCH PRN PO 09/18/16 19:30 09/22/16 00:25 Potassium Chloride 100 ml @ 25 mls/hr UNSCH PRN IV 09/18/16 19:30 09/22/16 00:25 Potassium Chloride 100 ml @ 50 mls/hr Q2H PRN IV 09/18/16 19:30 (Magnesium Sulfate Inj/NS Inj) 100 ml @ 50 mls/hr UNSCH PRN IV 09/18/16 19:30 Magnesium Oxide 800 mg 800 mg UNSCH PRN PO 09/18/16 19:30 (Magnesium Sulfate Inj/NS Inj) 100 ml @ 50 mls/hr UNSCH PRN IV 09/18/16 19:30 Potassium Phosphate 2000 mg 2,000 mg Q4H PRN PO 09/18/16 19:30 (Sodium Phosphate Inj/NS 250 ml Inj) 250 ml @ 42 mls/hr UNSCH PRN IV 09/18/16 19:30 09/22/16 12:43 Potassium Phosphate 2000 mg 2,000 mg UNSCH PRN PO/TUBE 09/18/16 19:30 (Potassium Phosphate Inj/NS 250 ml Inj) 260 ml @ 42 mls/hr UNSCH PRN IV 09/18/16 19:30 09/21/16 07:52 (NS Flush) 2 ml UNSCH PRN .XX 09/18/16 19:30 09/22/16 09:31 (NS Flush) 2 ml BID .XX 09/18/16 21:00 09/23/16 08:30 (Tylenol) 650 mg Q6H PRN PO 09/18/16 19:30 09/20/16 09:35 (Pepcid Inj) 20 mg Q12HR IV PUSH 09/18/16 21:00 09/23/16 08:21 (Ativan Inj) 1 mg Q1H PRN IV 09/18/16 19:30 09/19/16 18:38 (Zofran Inj) 4 mg Q6H PRN IV 09/18/16 19:30 (Lovenox Inj) 40 mg Q24H SQ 09/18/16 21:00 09/22/16 21:14 Miscellaneous Information 1 Q361D XX 09/18/16 19:30 09/20/16 20:00 (Chlorhexidine 2% Cloth) 3 pack Taper DAILY@04 TOP 09/19/16 04:00 09/15/17 03:59 09/23/16 03:00 (Chlorhexidine 2% Cloth) 3 pack UNSCH PRN TOP 09/18/16 19:30 (Cheri-Colace) 1 tab BID PO 09/18/16 21:00 09/22/16 21:14 (Milk Of Magnesia Liq) 30 ml Q12H PRN PO 09/18/16 19:30 (Senokot) 17.2 mg Q12H PRN PO 09/18/16 19:30 (Dulcolax Supp) 10 mg DAILY PRN RECTAL 09/18/16 19:30 Lactulose 30 ml 30 ml DAILY PRN PO 09/18/16 19:30 Azithromycin 500 mg/Sodium Chloride 250 ml @ 250 mls/hr Q24H IV 09/20/16 09:00 09/23/16 08:21 Sodium Chloride 1,000 ml @ 30 mls/hr Q24H IV 09/21/16 10:00 09/22/16 22:40 (Primaxin Inj/NS Inj) 100 ml @ 200 mls/hr Q6H IV 09/22/16 17:00 09/23/16 04:52 Vital Signs / I&O Vital Signs Date Time Temp Pulse Resp B/P Pulse Ox O2 Delivery O2 Flow Rate FiO2 09/23/16 10:10 98 Nasal Cannula 3 09/23/16 10:10 98 Nasal Cannula 3.00 09/23/16 10:00 109 09/23/16 08:00 90 09/23/16 07:48 40 09/23/16 07:48 100 40 09/23/16 07:00 87 23 115/75 100 09/23/16 06:45 88 23 100 09/23/16 06:30 87 24 100 09/23/16 06:15 84 22 100 09/23/16 06:00 83 20 119/79 100 09/23/16 06:00 83 09/23/16 05:45 86 24 100 09/23/16 05:30 90 23 100 09/23/16 05:15 89 23 100 09/23/16 05:00 81 21 112/72 100 09/23/16 04:45 89 20 100 09/23/16 04:32 100 40 09/23/16 04:30 88 17 100 09/23/16 04:15 88 23 100 09/23/16 04:00 86 21 113/76 100 09/23/16 04:00 40 09/23/16 04:00 86 09/23/16 04:00 86 21 113/76 100 09/23/16 04:00 99.7 86 21 113/76 100 09/23/16 03:45 90 23 100 09/23/16 03:30 92 26 99 09/23/16 03:15 92 29 100 09/23/16 03:00 88 22 110/75 100 09/23/16 02:45 91 21 100 09/23/16 02:30 89 23 100 09/23/16 02:15 88 22 100 09/23/16 02:04 87 22 107/69 100 09/23/16 02:00 85 09/23/16 02:00 85 21 100 09/23/16 01:45 86 22 100 09/23/16 01:30 89 22 100 09/23/16 01:15 88 22 100 09/23/16 01:00 88 22 106/72 100 09/23/16 00:45 91 23 100 09/23/16 00:30 92 23 100 09/23/16 00:15 91 24 100 09/23/16 00:02 100 40 09/23/16 00:00 97 09/23/16 00:00 99.9 97 23 108/63 100 09/23/16 00:00 97 30 108/63 100 09/23/16 00:00 40 09/23/16 00:00 97 30 108/63 100 09/22/16 23:45 95 21 100 09/22/16 23:30 92 23 100 09/22/16 23:15 85 22 100 09/22/16 23:00 87 23 104/70 100 09/22/16 22:45 90 24 100 09/22/16 22:30 92 25 100 09/22/16 22:15 94 26 100 09/22/16 22:00 91 09/22/16 22:00 91 23 104/72 100 09/22/16 21:45 95 24 100 09/22/16 21:30 89 23 100 09/22/16 21:15 89 23 100 09/22/16 21:00 88 23 111/69 100 09/22/16 20:54 100 40 09/22/16 20:45 91 23 100 09/22/16 20:30 88 22 100 09/22/16 20:15 90 24 100 09/22/16 20:00 99.5 90 22 108/76 100 09/22/16 20:00 40 09/22/16 20:00 90 22 108/76 100 09/22/16 20:00 90 09/22/16 18:00 93 09/22/16 16:16 100 40 09/22/16 16:00 98.8 86 15 98/65 100 09/22/16 16:00 40 09/22/16 16:00 86 09/22/16 15:00 90 18 99/65 100 09/22/16 14:00 87 17 103/69 100 09/22/16 14:00 87 09/22/16 13:38 100 40 09/22/16 13:00 85 18 106/70 100 09/22/16 12:00 40 09/22/16 12:00 86 09/22/16 12:00 99.3 86 20 104/63 99 I/O 09/22/16 09/22/16 09/22/16 09/23/16 09/23/16 09/23/16 07:00 15:00 23:00 07:00 15:00 23:00 Intake Total 964 ml 993 ml 1496 ml 1169 ml Output Total 550 ml 800 ml 625 ml 350 ml 0 ml Balance 414 ml 193 ml 871 ml 819 ml 0 ml Intake Oral 0 ml IV Total 964 ml 993 ml 1251 ml 836 ml Tube Feeding 215 ml 303 ml Other 30 ml 30 ml Output Urine Total 550 ml 800 ml 625 ml 350 ml Tube Feeding Residual Discard 0 ml 0 ml 0 ml 0 ml # Bowel Movements 2 4 0 2 Physical Exam GENERAL: NAD, sedated on the vent SKIN: Warm and dry. HEAD: Atraumatic. Normocephalic. EYES: Pupils equal and round. No scleral icterus. No injection or drainage. ENT: No nasal bleeding or discharge. Mucous membranes pink and moist. NECK: Trachea midline. No JVD. CARDIOVASCULAR: Regular rate and rhythm. RESPIRATORY: No accessory muscle use. Clear to auscultation. Breath sounds equal bilaterally. GASTROINTESTINAL: Abdomen soft, non-tender, nondistended. Hepatic and splenic margins not palpable. MUSCULOSKELETAL: Extremities without clubbing, cyanosis, or edema. No obvious deformities. NEUROLOGICAL: Sedated on the vent Laboratory Laboratory Tests Test 09/20/16 09/20/16 09/21/16 09/21/16 12:15 13:03 04:38 09:02 Blood Gas Puncture Site LT RADIAL RT RADIAL Blood Gas Patient Temperature 98.6 98.6 Blood Gas HCO3 23 mmol/L 31 mmol/L (22-26) (22-26) Blood Gas Base Excess -2.2 mmol/L 7.6 mmol/L (-2-2) (-2-2) Blood Gas Oxygen Saturation 92 % (90-100) 97 % (90-100) Arterial Blood pH 7.31 7.48 (7.380-7.420) (7.380-7.420) Arterial Blood Partial 47 mmHg (38-42) 43 mmHg (38-42) Pressure CO2 Arterial Blood Partial 72 mmHg 134 mmHg Pressure O2 (61-120) (61-120) Arterial Blood Oxygen Content 16.6 Vol % 17.7 Vol % (12.0-20.0) (12.0-20.0) Arterial Blood 0.8 % (0-4) 1.1 % (0-4) Carboxyhemoglobin Arterial Blood Methemoglobin 1.5 % (0-2) 1.3 % (0-2) Blood Gas Hemoglobin 12.9 G/DL 12.9 G/DL (12.0-16.0) (12.0-16.0) Oxygen Delivery Device VENTILATOR VENTILATOR Blood Gas Ventilator Setting 450/14/PEEP8 450/AC14/PEEP6 Blood Gas Inspired Oxygen 70 % 55 % Total Creatine Kinase 378 U/L (26-192) Creatine Kinase MB 8.9 NG/ML (0.5-3.6) Creatine Kinase MB % 2.4 % (0.0-4.0) White Blood Count 20.0 TH/MM3 (4.0-11.0) Red Blood Count 3.93 MIL/MM3 (4.00-5.30) Hemoglobin 11.7 GM/DL (11.6-15.3) Hematocrit 34.4 % (35.0-46.0) Mean Corpuscular Volume 87.6 FL (80.0-100.0) Mean Corpuscular Hemoglobin 29.7 PG (27.0-34.0) Mean Corpuscular Hemoglobin 33.9 % Concent (32.0-36.0) Red Cell Distribution Width 13.8 % (11.6-17.2) Platelet Count 138 TH/MM3 (150-450) Mean Platelet Volume 8.2 FL (7.0-11.0) Neutrophils (%) (Auto) 88.6 % (16.0-70.0) Lymphocytes (%) (Auto) 3.9 % (9.0-44.0) Monocytes (%) (Auto) 6.1 % (0.0-8.0) Eosinophils (%) (Auto) 0.3 % (0.0-4.0) Basophils (%) (Auto) 1.1 % (0.0-2.0) Neutrophils # (Auto) 17.7 TH/MM3 (1.8-7.7) Lymphocytes # (Auto) 0.8 TH/MM3 (1.0-4.8) Monocytes # (Auto) 1.2 TH/MM3 (0-0.9) Eosinophils # (Auto) 0.1 TH/MM3 (0-0.4) Basophils # (Auto) 0.2 TH/MM3 (0-0.2) CBC Comment AUTO DIFF Differential Total Cells 100 Counted Neutrophils % (Manual) 55 % (16-70) Band Neutrophils % 23 % (0-6) Lymphocytes % 5 % (9-44) Monocytes % 9 % (0-8) Neutrophils # (Manual) 17.2 TH/MM3 (1.8-7.7) Metamyelocytes 7 % (0-1) Myelocytes 1 % (0-0) Differential Comment FINAL DIFF MANUAL Platelet Estimate LOW (NORMAL) Platelet Morphology Comment NORMAL (NORMAL) Sodium Level 141 MEQ/L (136-145) Potassium Level 2.9 MEQ/L (3.5-5.1) Chloride Level 102 MEQ/L (98-107) Carbon Dioxide Level 30.3 MEQ/L (21.0-32.0) Anion Gap 9 MEQ/L (5-15) Blood Urea Nitrogen 26 MG/DL (7-18) Creatinine 0.90 MG/DL (0.50-1.00) Estimat Glomerular Filtration 67 ML/MIN (>89) Rate Random Glucose 103 MG/DL (74-106) Calcium Level 7.0 MG/DL (8.5-10.1) Protein Corrected Calcium 7.8 MG/DL (8.5-10.1) Phosphorus Level 1.9 MG/DL (2.5-4.9) Magnesium Level 1.8 MG/DL (1.5-2.5) Total Bilirubin 1.0 MG/DL (0.2-1.0) Aspartate Amino Transf 41 U/L (15-37) (AST/SGOT) Alanine Aminotransferase 21 U/L (10-53) (ALT/SGPT) Alkaline Phosphatase 50 U/L (45-117) Total Protein 5.5 GM/DL (6.4-8.2) Albumin 2.1 GM/DL (3.4-5.0) Test 09/21/16 09/22/16 09/22/16 20:07 03:43 09:35 Potassium Level 3.0 MEQ/L 4.2 MEQ/L (3.5-5.1) (3.5-5.1) Phosphorus Level 1.8 MG/DL 1.3 MG/DL (2.5-4.9) (2.5-4.9) White Blood Count 19.2 TH/MM3 (4.0-11.0) Red Blood Count 3.58 MIL/MM3 (4.00-5.30) Hemoglobin 10.8 GM/DL (11.6-15.3) Hematocrit 31.7 % (35.0-46.0) Mean Corpuscular Volume 88.7 FL (80.0-100.0) Mean Corpuscular Hemoglobin 30.1 PG (27.0-34.0) Mean Corpuscular Hemoglobin 33.9 % Concent (32.0-36.0) Red Cell Distribution Width 13.7 % (11.6-17.2) Platelet Count 108 TH/MM3 (150-450) Mean Platelet Volume 8.8 FL (7.0-11.0) Neutrophils (%) (Auto) 85.4 % (16.0-70.0) Lymphocytes (%) (Auto) 7.2 % (9.0-44.0) Monocytes (%) (Auto) 6.0 % (0.0-8.0) Eosinophils (%) (Auto) 0.9 % (0.0-4.0) Basophils (%) (Auto) 0.5 % (0.0-2.0) Neutrophils # (Auto) 16.4 TH/MM3 (1.8-7.7) Lymphocytes # (Auto) 1.4 TH/MM3 (1.0-4.8) Monocytes # (Auto) 1.1 TH/MM3 (0-0.9) Eosinophils # (Auto) 0.2 TH/MM3 (0-0.4) Basophils # (Auto) 0.1 TH/MM3 (0-0.2) CBC Comment DIFF FINAL Differential Comment Sodium Level 144 MEQ/L (136-145) Chloride Level 107 MEQ/L (98-107) Carbon Dioxide Level 26.1 MEQ/L (21.0-32.0) Anion Gap 11 MEQ/L (5-15) Blood Urea Nitrogen 18 MG/DL (7-18) Creatinine 0.60 MG/DL (0.50-1.00) Estimat Glomerular Filtration 107 ML/MIN Rate (>89) Random Glucose 59 MG/DL (74-106) Calcium Level 7.2 MG/DL (8.5-10.1) Protein Corrected Calcium 8.0 MG/DL (8.5-10.1) Total Bilirubin 1.1 MG/DL (0.2-1.0) Aspartate Amino Transf 119 U/L (15-37) (AST/SGOT) Alanine Aminotransferase 34 U/L (10-53) (ALT/SGPT) Alkaline Phosphatase 62 U/L (45-117) Total Protein 5.6 GM/DL (6.4-8.2) Albumin 1.9 GM/DL (3.4-5.0) Stool C. difficile Toxin (PCR) NEGATIVE (NEGATIVE) Stl C. difficile Toxin PRESUMPTIVE Epiderm 027 NEGATIVE (NEGATIVE) Assessment and Plan Problem List: (1) Acute respiratory failure with hypoxia (2) Overdose of muscle relaxant (3) Cardiomyopathy Assessment and Plan 1) Overdose on multiple meds 2) TTE showing possible vegetation ALIA done, no vegetation noted 3) New cardiomyopathy Possible due to meds from overdose Will consider ischemic evaluation once stable 4) Plan for possible extubation per CC team Problem Qualifiers (1) Overdose of muscle relaxant: Qualified Code: T48.202A - Overdose of muscle relaxant, intentional self-harm, initial encounter Parker Triplett DO Sep 23, 2016 11:15
[2016-09-23 12:33] LABS: AUTOMATED NEUTROPHIL # 8.1 TH/MM3 (1.8-7.7); BASOPHIL % 0.3 % (0.0-2.0); EOSINOPHIL # 0.1 TH/MM3 (0-0.4); EOSINOPHIL % 0.8 % (0.0-4.0); HEMATOCRIT 32.4 % (35.0-46.0); LYMPH % 7.5 % (9.0-44.0); LYMPHOCYTE # 0.8 TH/MM3 (1.0-4.8); MEAN CELL VOLUME 88.6 FL (80.0-100.0); MEAN CORPUSCULAR HEMOGLOBIN 30.2 PG (27.0-34.0); MONO % 11.7 % (0.0-8.0); NEUT % 79.7 % (16.0-70.0); PLATELET COUNT 89 TH/MM3 (150-450); RED BLOOD COUNT 3.66 MIL/MM3 (4.00-5.30); RED CELL DISTRIBUTION WIDTH 13.2 % (11.6-17.2); WHITE BLOOD COUNT 10.2 TH/MM3 (4.0-11.0)
[2016-09-23 12:34] LABS: HEMO FLAGS AUTO DIFF
--- NOTE | 2016-09-23 13:03 | HHI.IDPN ---
Note Infectious Disease Note Patient is extubated. Awake and responsive. Afebrile. No specific complaints. ALIA no vegetations seen. Sputum culture has ESBL e. coli. Blood culture negative. Current Medications Medications (Trade) Dose Ordered Sig/Nisreen Route PRN Reason Start Time Stop Time Status Last Admin Dose Admin Potassium Chloride 100 ml @ 50 mls/hr Q2H PRN IV For Potassium 2.8 - 3.2 mEq/L 09/18/16 19:30 Potassium Chloride (KCl 20 Meq Premix Inj) 100 ml @ 50 mls/hr Q2H PRN IV For Potassium 2.8 - 3.2 mEq/L 09/18/16 19:30 09/21/16 06:53 Potassium Bicarb/ Potassium Chloride 50 meq 50 meq UNSCH PRN PO For Potassium 3.3 - 3.5 mEq/L 09/18/16 19:30 09/22/16 00:25 Potassium Chloride 100 ml @ 25 mls/hr UNSCH PRN IV For Potassium 3.3 - 3.5 mEq/L 09/18/16 19:30 09/22/16 00:25 Potassium Chloride 100 ml @ 50 mls/hr Q2H PRN IV For Potassium 3.3 - 3.5 mEq/L 09/18/16 19:30 Magnesium Sulfate/ Sodium Chloride (Magnesium Sulfate Inj/NS Inj) 100 ml @ 50 mls/hr UNSCH PRN IV For Magnesium 0.9 - 1.1 mg/dL 09/18/16 19:30 Magnesium Oxide 800 mg 800 mg UNSCH PRN PO For Magnesium 1.2 - 1.6 mg/dL 09/18/16 19:30 Magnesium Sulfate/ Sodium Chloride (Magnesium Sulfate Inj/NS Inj) 100 ml @ 50 mls/hr UNSCH PRN IV For Magnesium 1.2 - 1.6 mg/dL 09/18/16 19:30 Potassium Phosphate 2000 mg 2,000 mg Q4H PRN PO For Phosphorus < 2.5 mg/dL 09/18/16 19:30 Sodium Phosphate/ Sodium Chloride (Sodium Phosphate Inj/NS 250 ml Inj) 250 ml @ 42 mls/hr UNSCH PRN IV For Phosphorus < 2.5 mg/dL 09/18/16 19:30 09/22/16 12:43 Potassium Phosphate 2000 mg 2,000 mg UNSCH PRN PO/TUBE SEE LABEL COMMENTS 09/18/16 19:30 Potassium Phosphate/Sodium Chloride (Potassium Phosphate Inj/NS 250 ml Inj) 260 ml @ 42 mls/hr UNSCH PRN IV SEE LABEL COMMENTS 09/18/16 19:30 09/21/16 07:52 Sodium Chloride (NS Flush) 2 ml UNSCH PRN .XX FLUSH AFTER USING IV ACCESS 09/18/16 19:30 09/22/16 09:31 Sodium Chloride (NS Flush) 2 ml BID .XX 09/18/16 21:00 09/23/16 08:30 Acetaminophen (Tylenol) 650 mg Q6H PRN PO PAIN 1-10 AND/OR FEVER >101F 09/18/16 19:30 09/20/16 09:35 Famotidine (Pepcid Inj) 20 mg Q12HR IV PUSH 09/18/16 21:00 09/23/16 08:21 Lorazepam (Ativan Inj) 1 mg Q1H PRN IV Agitation/Sedation 09/18/16 19:30 09/19/16 18:38 Ondansetron HCl (Zofran Inj) 4 mg Q6H PRN IV NAUSEA OR VOMITING 09/18/16 19:30 Enoxaparin Sodium (Lovenox Inj) 40 mg Q24H SQ 09/18/16 21:00 09/22/16 21:14 Miscellaneous Information 1 Q361D XX 09/18/16 19:30 09/20/16 20:00 Chlorhexidine Gluconate (Chlorhexidine 2% Cloth) 3 pack Taper DAILY@04 TOP 09/19/16 04:00 09/15/17 03:59 09/23/16 03:00 Chlorhexidine Gluconate (Chlorhexidine 2% Cloth) 3 pack UNSCH PRN [facility] 09/18/16 19:30 Senna/Docusate Sodium (Cheri-Colace) 1 tab BID PO 09/18/16 21:00 09/22/16 21:14 Magnesium Hydroxide (Milk Of Magnesia Liq) 30 ml Q12H PRN PO MILD - MODERATE CONSTIPATION 09/18/16 19:30 Sennosides (Senokot) 17.2 mg Q12H PRN PO MODERATE - SEVERE CONSTIPATION 09/18/16 19:30 Bisacodyl (Dulcolax Supp) 10 mg DAILY PRN RECTAL SEVERE CONSITIPATION 09/18/16 19:30 Lactulose 30 ml 30 ml DAILY PRN PO SEVERE CONSITIPATION 09/18/16 19:30 Azithromycin 500 mg/Sodium Chloride 250 ml @ 250 mls/hr Q24H IV 09/20/16 09:00 09/23/16 08:21 Sodium Chloride 1,000 ml @ 30 mls/hr Q24H IV 09/21/16 10:00 09/22/16 22:40 Imipenem/ Cilastatin Sodium/ Sodium Chloride (Primaxin Inj/NS Inj) 100 ml @ 200 mls/hr Q6H IV 09/22/16 17:00 09/23/16 11:34 PHYSICAL EXAMINATION GENERAL: Awake and responsive on nasal canula. Looks lethargic. HEENT: No icterus. Oropharynx intubated. NECK: Supple. No swelling or adenopathy. LUNGS: Rhonchi at bases. Breath sounds decreased. HEART: Regular rate and rhythm. No audible murmurs or rubs or gallops. ABDOMEN: Nontender. Soft. EXTREMITIES: No clubbing or cyanosis. 1-2+ edema of the hands. SKIN: No rash. NEUROLOGIC: Non focal. PSYCH: Calm. IMPRESSION 1. ESBL E-coli. 2. Pneumonia due to ESBL e. coli. 3. Leukocytosis secondary to infection. 4. Acute respiratory failure, possibly aspiration as well following intubation with infiltrate having developed after intubation. RECOMMENDATIONS 1. Stop azithromycin. 2. Stop piperacillin / Tazobactam. 3. Continue imipenem to cover a ESBL E coli in the urine and the lungs. 4. Monitor clinical response. Ward Quintero MD Sep 23, 2016 13:03
[2016-09-23 13:10] LABS: ANION GAP 11 MEQ/L (5-15); AST (GOT) 69 U/L (15-37); BICARBONATE 20.6 MEQ/L (21.0-32.0); BLOOD UREA NITROGEN 10 MG/DL (7-18); CHLORIDE 114 MEQ/L (98-107); GLOMERULAR FILTRATION RATE 206 ML/MIN (>89); POTASSIUM 3.2 MEQ/L (3.5-5.1); SODIUM (NA) 146 MEQ/L (136-145)
[2016-09-23 13:17] LABS: ALKALINE PHOSPHATASE 82 U/L (45-117); ALT (GPT) 35 U/L (10-53); TOTAL BILIRUBIN ADULT 0.7 MG/DL (0.2-1.0)
[2016-09-23 13:21] LABS: PLATELET ESTIMATE SMEAR LOW (NORMAL); PLATELET MORPHOLOGY NORMAL (NORMAL); SCAN/DIFF AUTO DIFF CONFIRMED
[2016-09-23] MEDS: POTASSIUM CHLOR 20 MEQ PREMIX 100 ML IV PRN (15:00)
[2016-09-23] MEDS: SODIUM CHLOR 0.9% 1000 ML INJ 1,000 ML IV SCH ×2 (15:04→16:41)
[2016-09-23] MEDS: POTASSIUM PHOSPHATE INJ 30 MMOL in SODIUM CHLOR 0.9% 250 ML INJ 250 ML IV PRN (16:13)
[2016-09-23] MEDS: ENOXAPARIN SODIUM 40 MG/0.4 ML SYRINGE SQ SCH (21:00)
[2016-09-23] MEDS: LORazepam 2 MG/ML VIAL IV PRN (21:30)
[2016-09-24] VITALS (16 sets, daily range): BP systolic 105–126; BP diastolic 62–72; PULSE 93–115; RESP 18–22; TEMP 97.6–99.1; O2SAT 89–100
[2016-09-24] MEDS: LORazepam 2 MG/ML VIAL IV PRN ×2 (00:40→21:38)
[2016-09-24] MEDS: CHLORHEXIDINE GLUCONATE 2 % 1 PACK (2 CLOTHS) TOP SCH (04:00)
[2016-09-24] MEDS: RESP: ALBUTEROL 2.5 MG/IPRATROPIUM 0.5 MG NEB (SCH) NEB ×5 (04:25→21:40)
[2016-09-24] MEDS: IMIPENEM/CILASTATIN INJ 500 MG in SODIUM CHLORIDE 0.9% INJ 100 ML IV SCH ×3 (06:36→17:27)
[2016-09-24 07:56] LABS: ANION GAP 8 MEQ/L (5-15); AST (GOT) 62 U/L (15-37); BICARBONATE 22.8 MEQ/L (21.0-32.0); BLOOD UREA NITROGEN 12 MG/DL (7-18); CHLORIDE 116 MEQ/L (98-107); GLOMERULAR FILTRATION RATE 157 ML/MIN (>89); MAGNESIUM 1.9 MG/DL (1.5-2.5); POTASSIUM 3.3 MEQ/L (3.5-5.1); SODIUM (NA) 147 MEQ/L (136-145)
[2016-09-24 07:58] LABS: AUTOMATED NEUTROPHIL # 6.2 TH/MM3 (1.8-7.7); BASOPHIL % 0.3 % (0.0-2.0); EOSINOPHIL % 0.2 % (0.0-4.0); HEMATOCRIT 28.7 % (35.0-46.0); LYMPH % 14.5 % (9.0-44.0); LYMPHOCYTE # 1.3 TH/MM3 (1.0-4.8); MEAN CELL VOLUME 89.6 FL (80.0-100.0); MEAN CORPUSCULAR HEMOGLOBIN 30.7 PG (27.0-34.0); MEAN CORPUSCULAR HGB CONC 34.3 % (32.0-36.0); MONO % 16.5 % (0.0-8.0); NEUT % 68.5 % (16.0-70.0); PLATELET COUNT 99 TH/MM3 (150-450); WHITE BLOOD COUNT 9.1 TH/MM3 (4.0-11.0)
[2016-09-24] MEDS: RESP: ACETYLCYSTEINE 10% 30 ML NEB NEB SCH ×2 (08:00→16:46)
[2016-09-24 08:04] LABS: ALKALINE PHOSPHATASE 66 U/L (45-117); ALT (GPT) 43 U/L (10-53); TOTAL BILIRUBIN ADULT 0.5 MG/DL (0.2-1.0)
[2016-09-24 08:10] LABS: HEMO FLAGS AUTO DIFF
[2016-09-24] MEDS: DOCUSATE SODIUM 50 MG/SENNA 8.6 MG TAB PO SCH ×2 (09:00→21:36)
[2016-09-24] MEDS: FAMOTIDINE 20 MG/2 ML VIAL IV PUSH SCH ×2 (09:09→21:37)
[2016-09-24] MEDS: SODIUM CHLORIDE 0.9% FLUSH 10 ML FLUSH PRN (09:10)
[2016-09-24] MEDS: SODIUM CHLORIDE 0.9% FLUSH 10 ML FLUSH SCH ×2 (09:10→21:37)
[2016-09-24] MEDS ORDERED: LOPERAMIDE HCL 2 MG CAP PO ONE (10:00)
[2016-09-24 10:11] LABS: BANDS 14 % (0-6); NEUTROPHIL # MANUAL DIFF 6.3 TH/MM3 (1.8-7.7); POLYS (SEG NEUTROPHILS) 55 % (16-70); SCAN/DIFF FINAL DIFF MANUAL; WBC DIFF SAMPLE 100
--- NOTE | 2016-09-24 10:57 | PD.CONS ---
HPI [facility] Consult Requested By Primary Care Physician Gildardo Polanco MD Diagnoses: Review of Systems ROS Limitations: Clinical Condition, Altered Mental Status Past Family Social History Reported Medications Reported Meds & Active Scripts Active Reported Methocarbamol 500 Mg Tab 500 Mg PO TID Allergies: Coded Allergies: *MDRO Multi-Drug Resistant Organism (Verified Adverse Reaction, Unknown, ESBL, 09/24/16) ESBL (urine) - 09/20/16, ESBL-Ecoli- (Bronc W) 09/20/16 Active Ordered Medications Inpatient Medications Acetaminophen (Tylenol) 650 mg Q6H PRN PO PAIN 1-10 AND/OR FEVER >101F Last administered on 09/20/16 09:35; Start 09/18/16 at 19:30 Acetylcysteine (Mucomyst 10% Neb) 2 ml Q8HR NEB NEB Last administered on 23:22; Start 09/21/16 at 16:00 Albuterol Sulfate (Albuterol Neb) 2.5 mg Q2HR NEB PRN INH SOB/WHEEZING Last administered on 09/20/16 10:22; Start 09/18/16 at 19:30 Albuterol/ Ipratropium (Duoneb Neb) 1 ampule Q4HR NEB NEB Last administered on 09/24/16 08:55; Start 09/21/16 at 16:00 Albuterol/ Ipratropium 1 ampule 1 ampule Q6HR NEB NEB Last administered on 15:15; Start 09/20/16 at 10:45; Stop 09/22/16 at 04:25; Status DC Azithromycin/ Sodium Chloride (Zithromax Inj/ NS 250 ml Inj) 250 ml @ 250 mls/ hr Q24H IV Last administered on 09/23/16 08:21; Start 09/20/16 at 09:00; Stop 09/23/16 at 13:04; Status DC Bisacodyl (Dulcolax Supp) 10 mg DAILY PRN RECTAL SEVERE CONSITIPATION; Start at 19:30 Calcium Gluconate/ Dextrose (Calcium Gluconate Inj/D5W 100 ml Inj) 120 ml @ 120 mls/hr ONCE ONCE IV Last administered on 09/20/16 10:59; Start 09/20/16 at 11:00; Stop 09/20/16 at 11:59; Status DC Chlorhexidine Gluconate (Chlorhexidine 2% Cloth) 3 pack UNSCH PRN [facility]; Start 09/18/16 at 19:30 Dexamethasone Sodium Phosphate (Decadron Inj) 4 mg ONCE STAT IV PUSH Last administered on 09/23/16 10:12; Start 09/23/16 at 10:12; Stop 09/23/16 at 10:18; Status DC Enoxaparin Sodium (Lovenox Inj) 40 mg Q24H SQ Last administered on 09/22/16 21 :14; Start 09/18/16 at 21:00 Famotidine (Pepcid Inj) 20 mg Q12HR IV PUSH Last administered on 09/24/16 09:09 ; Start 09/18/16 at 21:00 Imipenem/ Cilastatin Sodium/ Sodium Chloride (Primaxin Inj/NS Inj) 100 ml @ 200 mls/hr Q6H IV Last administered on 09/24/16 06:36; Start 09/22/16 at 17:00 IV Flush 2 ml 2 ml UNSCH PRN IV FLUSH FLUSH AFTER USING IV ACCESS; Start at 18:15; Stop 09/19/16 at 06:37; Status DC Lactulose 30 ml 30 ml DAILY PRN PO SEVERE CONSITIPATION; Start 09/18/16 at 19: 30 Loperamide HCl (Imodium) 4 mg ONCE ONCE PO ; Start 09/24/16 at 10:00; Stop at 10:01; Status DC Lorazepam (Ativan Inj) 1 mg Q1H PRN IV Agitation/Sedation Last administered on 09/24/16 00:40; Start 09/18/16 at 19:30 Magnesium Hydroxide (Milk Of Magnesia Liq) 30 ml Q12H PRN PO MILD - MODERATE CONSTIPATION; Start 09/18/16 at 19:30 Magnesium Oxide 800 mg 800 mg UNSCH PRN PO For Magnesium 1.2 - 1.6 mg/dL; Start 09/18/16 at 19:30 Magnesium Sulfate 2 gm/Sodium Chloride 100 ml @ 50 mls/hr UNSCH PRN IV For Magnesium 1.2 - 1.6 mg/dL; Start 09/18/16 at 19:30 Magnesium Sulfate/ Sodium Chloride (Magnesium Sulfate Inj/NS Inj) 100 ml @ 50 mls/hr UNSCH PRN IV For Magnesium 0.9 - 1.1 mg/dL; Start 09/18/16 at 19:30 Miscellaneous Information 1 Q361D XX Last administered on 09/20/16 20:00; Start 09/18/16 at 19:30 Miscellaneous Medication (ASP Crit: Path resist to other, cult proven) 1 UNSCH X1 PRN .XX PHARMACY DOCUMENTATION; Start 09/22/16 at 16:00; Stop 09/23/16 at 15: 59; Status DC Miscellaneous Medication ([facility] Information) 1 UNSCH X1 PRN XX PHARMACY DOCUMENTATION; Start 09/22/16 at 16:00; Stop 09/23/16 at 15:59; Status DC Miscellaneous Medication 1 1 UNSCH X1 PRN XX PHARMACY DOCUMENTATION; Start at 16:00; Stop 09/23/16 at 15:59; Status DC Ondansetron HCl (Zofran Inj) 4 mg Q6H PRN IV NAUSEA OR VOMITING; Start at 19:30 Piperacillin Sod/ Tazobactam Sod 100 ml @ 200 mls/hr Q6H IV Last administered on 09/22/16 14:00; Start 09/20/16 at 08:00; Stop 09/22/16 at 16:00; Status DC Potassium Chloride/Sodium Chloride (NS + KCl 20 Meq Inj) 1,000 ml @ 100 mls/hr Q10H IV Last administered on 09/18/16 20:09; Start 09/18/16 at 19:22; Stop at 06:37; Status DC Potassium Phosphate 2000 mg 2,000 mg UNSCH PRN PO/TUBE SEE LABEL COMMENTS; Start 09/18/16 at 19:30 Potassium Phosphate 30 mmol/ Sodium Chloride 260 ml @ 42 mls/hr UNSCH PRN IV SEE LABEL COMMENTS Last administered on 09/23/16 16:13; Start 09/18/16 at 19:30 Potassium Bicarb/ Potassium Chloride 50 meq 50 meq UNSCH PRN PO For Potassium 3.3 - 3.5 mEq/L Last administered on 09/22/16 00:25; Start 09/18/16 at 19:30 Potassium Chloride 100 ml @ 50 mls/hr Q2H PRN IV For Potassium 3.3 - 3.5 mEq/ L Last administered on 09/24/16 09:42; Start 09/18/16 at 19:30 Potassium Chloride (KCl 20 Meq Premix Inj) 100 ml @ 50 mls/hr Q2H PRN IV For Potassium 2.8 - 3.2 mEq/L Last administered on 09/23/16 15:00; Start 09/18/16 at 19:30 Propofol 100 ml @ 0 mls/hr TITRATE IV Last administered on 09/23/16 05:58; Start 09/18/16 at 19:30; Stop 09/23/16 at 10:30; Status DC Racepinephrine (Racepinephrine 2.25% Neb) 0.5 ml ONCE STAT NEB Last administered on 09/23/16 10:11; Start 09/23/16 at 10:11; Stop 09/23/16 at 10:14; Status DC Senna/Docusate Sodium (Cheri-Colace) 1 tab BID PO Last administered on 21:14; Start 09/18/16 at 21:00 Sennosides (Senokot) 17.2 mg Q12H PRN PO MODERATE - SEVERE CONSTIPATION; Start 09/18/16 at 19:30 Sodium Bicarbonate 150 meq/Dextrose 1,000 ml @ 100 mls/hr Q10H IV Last administered on 09/21/16 04:27; Start 09/20/16 at 20:00; Stop 09/21/16 at 09:55 ; Status DC Sodium Bicarbonate 50 meq 50 meq NOW ONCE IV Last administered on 09/20/16 08 :18; Start 09/20/16 at 09:00; Stop 09/20/16 at 09:01; Status DC Sodium Bicarbonate (Sodium Bicarbonate 8.4% Inj) 50 meq ONCE ONCE IV PUSH Last administered on 09/20/16 08:17; Start 09/20/16 at 07:45; Stop 09/20/16 at 07:50; Status DC Sodium Chloride (NS 1000 ml Inj) 1,000 ml @ 30 mls/hr Q24H IV Last administered on 09/23/16 16:41; Start 09/21/16 at 10:00 Sodium Chloride (NS Flush) 2 ml BID .XX Last administered on 09/24/16 09:10; Start 09/18/16 at 21:00 Sodium Phosphate/ Sodium Chloride (Sodium Phosphate Inj/NS 250 ml Inj) 250 ml @ 42 mls/hr UNSCH PRN IV For Phosphorus < 2.5 mg/dL Last administered on t 12:43; Start 09/18/16 at 19:30 Physical Exam Vital Signs Vital Signs Date Time Temp Pulse Resp B/P Pulse Ox O2 Delivery O2 Flow Rate FiO2 09/24/16 10:00 104 09/24/16 08:56 100 Nasal Cannula 2.00 09/24/16 08:00 98.5 101 18 109/72 100 09/24/16 08:00 101 09/24/16 07:00 93 20 119/70 100 09/24/16 06:00 108 09/24/16 06:00 108 22 118/67 100 09/24/16 05:00 104 20 109/64 100 09/24/16 04:00 97 19 109/68 100 09/24/16 04:00 97 09/24/16 04:00 98.8 97 18 109/68 100 09/24/16 03:00 104 20 108/65 100 09/24/16 02:00 103 19 111/67 99 09/24/16 02:00 103 09/24/16 01:00 115 20 107/62 100 09/24/16 00:00 99.1 111 20 105/66 100 09/24/16 00:00 111 20 105/66 89 09/24/16 00:00 111 09/24/16 00:00 111 20 105/66 89 09/23/16 23:00 106 19 97/52 100 09/23/16 22:00 98 09/23/16 22:00 98 16 108/66 100 09/23/16 21:00 103 20 111/77 93 09/23/16 20:00 95 17 110/62 96 09/23/16 20:00 95 09/23/16 20:00 99.5 95 20 110/62 96 09/23/16 19:48 98 Nasal Cannula 2.00 09/23/16 18:00 96 09/23/16 16:00 102 09/23/16 16:00 99.9 102 17 113/55 97 09/23/16 14:00 94 09/23/16 12:00 98.4 97 16 115/66 99 09/23/16 12:00 97 09/23/16 11:00 92 19 124/67 98 Physical Exam GENERAL: This is a well-nourished, well-developed patient, in no apparent distress. SKIN: No rashes, ecchymoses or lesions. Cool and dry. HEAD: Atraumatic. Normocephalic. No temporal or scalp tenderness. EYES: Pupils equal round and reactive. Extraocular motions intact. No scleral icterus. No injection or drainage. ENT: Nose without bleeding, purulent drainage or septal hematoma. Throat without erythema, tonsillar hypertrophy or exudate. Uvula midline. Airway patent. NECK: Trachea midline. No JVD or lymphadenopathy. Supple, nontender, no meningeal signs. CARDIOVASCULAR: Regular rate and rhythm without murmurs, gallops, or rubs. RESPIRATORY: Clear to auscultation. Breath sounds equal bilaterally. No wheezes , rales, or rhonchi. GASTROINTESTINAL: Abdomen soft, non-tender, nondistended. No hepato-splenomegaly , or palpable masses. No guarding. MUSCULOSKELETAL: Extremities without clubbing, cyanosis, or edema. No joint tenderness, effusion, or edema noted. No calf tenderness. Negative Homans sign bilaterally. NEUROLOGICAL: Awake and alert. Cranial nerves II through XII intact. Motor and sensory grossly within normal limits. Five out of 5 muscle strength in all muscle groups. Normal speech. Laboratory Laboratory Tests Test 09/23/16 09/24/16 11:59 06:43 White Blood Count 10.2 9.1 Red Blood Count 3.66 3.20 Hemoglobin 11.0 9.8 Hematocrit 32.4 28.7 Mean Corpuscular Volume 88.6 89.6 Mean Corpuscular Hemoglobin 30.2 30.7 Mean Corpuscular Hemoglobin 34.0 34.3 Concent Red Cell Distribution Width 13.2 13.0 Platelet Count 89 99 Mean Platelet Volume 8.1 8.7 Neutrophils (%) (Auto) 79.7 68.5 Lymphocytes (%) (Auto) 7.5 14.5 Monocytes (%) (Auto) 11.7 16.5 Eosinophils (%) (Auto) 0.8 0.2 Basophils (%) (Auto) 0.3 0.3 Neutrophils # (Auto) 8.1 6.2 Lymphocytes # (Auto) 0.8 1.3 Monocytes # (Auto) 1.2 1.5 Eosinophils # (Auto) 0.1 0.0 Basophils # (Auto) 0.0 0.0 CBC Comment AUTO DIFF AUTO DIFF Differential Comment AUTO DIFF FINAL DIFF CONFIRMED MANUAL Platelet Estimate LOW Platelet Morphology Comment NORMAL Sodium Level 146 147 Potassium Level 3.2 3.3 Chloride Level 114 116 Carbon Dioxide Level 20.6 22.8 Anion Gap 11 8 Blood Urea Nitrogen 10 12 Creatinine 0.34 0.43 Estimat Glomerular Filtration 206 157 Rate Random Glucose 122 97 Calcium Level 8.2 8.1 Phosphorus Level 1.1 1.8 Total Bilirubin 0.7 0.5 Aspartate Amino Transf 69 62 (AST/SGOT) Alanine Aminotransferase 35 43 (ALT/SGPT) Alkaline Phosphatase 82 66 Total Protein 5.8 6.0 Albumin 1.8 2.0 Differential Total Cells 100 Counted Neutrophils % (Manual) 55 Band Neutrophils % 14 Lymphocytes % 18 Monocytes % 13 Neutrophils # (Manual) 6.3 Atypical Lymphocytes Magnesium Level 1.9 Date/Time Procedure Status Source Growth 09/22/16 18:47 Aerobic Blood Culture - Preliminary Resulted Blood Other Gram Positive Cocci 09/22/16 18:47 Anaerobic Blood Culture - Final Resulted Blood Other QNS - SEE AEROBE REPORT 09/20/16 10:15 Urine Culture - Final Complete Urine Catheterized Urine Escherichia Coli Esbl Positive 09/20/16 10:05 Gram Stain - Final Complete Bronchial Washings Other 09/20/16 10:05 Bronchial Culture - Final Complete Escherichia Coli Esbl Positive Klebsiella Pneumoniae Result Diagram: 09/24/16 0643 09/24/16 0643 Imaging Last Impressions Chest X-Ray 09/21/16 0600 Signed Impressions: Service Date/Time: Wednesday, September 21, 2016 03:35 - CONCLUSION: Persistent consolidation right lower lobes unchanged Harsh Chairez MD Head CT 09/18/16 1812 Signed Impressions: Service Date/Time: August 23:18 - CONCLUSION: No acute intracranial findings. Fred Cardoza MD A/P Diagnosis: (1) Cardiomyopathy (2) Overdose of muscle relaxant (3) Acute respiratory failure with hypoxia Problem Qualifiers (1) Overdose of muscle relaxant: Qualified Code: T48.202A - Overdose of muscle relaxant, intentional self-harm, initial encounter Di GuidryP Sep 24, 2016 10:57
[2016-09-24] MEDS ORDERED: POTASSIUM CHLORIDE 25 MEQ EFFERVESCENT TAB PO ONE (12:00)
--- NOTE | 2016-09-24 12:01 | PD.PSY.CON ---
Provisional Diagnosis Admission Date Sep 18, 2016 at 19:27 Moultrie I. Adjustment disorder with depressed mood vs major depressive disorder, recurrent , severe, without psychosis, cannabis use disorder Moultrie II. Deferred Moultrie III. Respiratory failure, metabolic acidosis, pneumonia Moultrie IV. Conflicts with Moultrie V. 40 History of Present Illness Service Psychiatry Consult Requested By Reason for Consult Suicidal attempt Primary Care Physician Gildardo Polanco MD HPI The patient is a 50-year-old woman, domiciled in [place] with her , mother of 4 kids, unemployed, supported by , with psychiatric history of depression, no previous psychiatric hospitalizations, no previous suicidal attempts, no established outpatient care, no psychotropics, no significant medical history, who arrives with altered mental status by EMS. Per chart documentation the patient had most likely intentional overdose of Robaxin as well as possible overdose of Klonopin. Apparently this is the birthday of her mother . The patient on arrival was a GCS of 3, and was intubated by ED attending for an airway protection. Patient was admitted in the ICU with respiratory failure, pneumonia, metabolic acidosis, she is being evaluated by cardiology due to Mitral valve vegetation. Psychotic evaluation today patient poorly cooperative, very sedated, difficult to arouse and engage in a conversation. However, patient says that he overdosed with the intention to "because he was my mother's birthday, but also had an argument with my doesn't love me". Patient says that she has been very depressed , many things in her life have been down that hill, she has been facing multiple arguments with her and for this reason her depression has been worsening. Patient clarifies that she overdosed with the intention to kill herself. At this moment she describes her mood as very depressed, "I prefer to be ". Patient is confused, just partially oriented in time and place. Cognitive assessment was limited due to the level of sedation and lack of cooperation. She does report using marijuana occasionally, denies the use of other illicit drugs and alcohol. Her use as a collateral information, Garth Duorn, states that he casually found his in the floor in the house with two bottles of medication in the floor. He confirmed that they had an argument the night before. He says that he found some messages of a friend in his Facebook account and she started accusing him of cheating to her. He also says that she has been chronically depressed after the of her mother , yesterday was supposed to be a year after she "and the issue was probably exacerbated her depression too". He confirms that she has history of depression, as far he knows she doesn't have any psychiatric hospitalizations, no previous suicidal attempts, and she doesn't use any drugs, but marijuana. Review of Systems Constitutional: DENIES: Diaphoretic episodes, Fatigue, Fever, Weight gain, Weight loss, Chills, Dizziness, Change in appetite, Night Sweats Endocrine: DENIES: Abnorml menstrual pattern, Heat/cold intolerance, Polydipsia , Polyuria, Polyphagia Eyes: DENIES: Blurred vision, Diplopia, Eye inflammation, Eye pain, Vision loss , Photosensitivity, Double Vision Ears, nose, mouth, throat: DENIES: Tinnitus, Hearing loss, Vertigo, Nasal discharge, Oral lesions, Throat pain, Hoarseness, Ear Pain, Running Nose, Epistaxis, Sinus Pain, Toothache, Odynophagia Respiratory: COMPLAINS OF: Sputum production, Shortness of breath, DENIES: Apneas, Cough, Snoring, Wheezing, Hemoptysis Cardiovascular: DENIES: Chest pain, Palpitations, Syncope, Dyspnea on Exertion , PND, Lower Extremity Edema, Orthopnea, Claudication Gastrointestinal: DENIES: Abdominal pain, Black stools, Bloody stools, Constipation, Diarrhea, Nausea, Vomiting, Difficulty Swallowing, Anorexia Musculoskeletal: DENIES: Joint pain, Muscle aches, Stiffness, Joint Swelling, Back pain, Neck pain Hematologic/lymphatic: DENIES: Bruising, Lymphadenopathy Immunologic/allergic: DENIES: Eczema, Urticaria Neurologic: DENIES: Abnormal gait, Headache, Localized weakness, Paresthesias, Seizures, Speech Problems, Tremor, Poor Balance Psychiatric: COMPLAINS OF: Depression, Suicidal Ideation Past Family Social History Coded Allergies: *MDRO Multi-Drug Resistant Organism (Verified Adverse Reaction, Unknown, ESBL, 09/24/16) ESBL (urine) - 09/20/16, ESBL-Ecoli- ([facility]) 09/20/16 Reported Medications Methocarbamol 500 Mg [id number] Mg PO TID #90 TAB Ref 0 09/18/16 Current Medications Medications (Trade) Dose Ordered Sig/Nisreen Route Start Time Stop Time Status Last Admin (NS Flush) 2 ml UNSCH PRN .XX 09/18/16 19:30 09/24/16 09:10 (NS Flush) 2 ml BID .XX 09/18/16 21:00 09/24/16 09:10 (Tylenol) 650 mg Q6H PRN PO 09/18/16 19:30 09/20/16 09:35 (Pepcid Inj) 20 mg Q12HR IV PUSH 09/18/16 21:00 09/24/16 09:09 (Ativan Inj) 1 mg Q1H PRN IV 09/18/16 19:30 09/24/16 00:40 (Zofran Inj) 4 mg Q6H PRN IV 09/18/16 19:30 (Lovenox Inj) 40 mg Q24H SQ 09/18/16 21:00 09/22/16 21:14 Miscellaneous Information 1 Q361D XX 09/18/16 19:30 09/20/16 20:00 (Chlorhexidine 2% Cloth) Taper DAILY@04 TOP 09/19/16 04:00 09/15/17 03:59 09/23/16 03:00 (Chlorhexidine 2% Cloth) 3 pack UNSCH PRN TOP 09/18/16 19:30 (Cheri-Colace) 1 tab BID PO 09/18/16 21:00 09/22/16 21:14 (Milk Of Magnesia Liq) 30 ml Q12H PRN PO 09/18/16 19:30 (Senokot) 17.2 mg Q12H PRN PO 09/18/16 19:30 (Dulcolax Supp) 10 mg DAILY PRN RECTAL 09/18/16 19:30 Lactulose 30 ml 30 ml DAILY PRN PO 09/18/16 19:30 Sodium Chloride 1,000 ml @ 30 mls/hr Q24H IV 09/21/16 10:00 09/23/16 16:41 Imipenem/ Cilastatin Sodium 500 mg/Sodium Chloride 100 ml @ 200 mls/hr Q6H IV 09/22/16 17:00 09/24/16 06:36 (Potassium Phosphate Inj/NS Inj) 155 ml @ 38.75 mls/ hr ONCE ONCE IV 09/24/16 11:30 09/24/16 15:29 UNV (K-Lyte Cl Eff) 25 meq ONCE ONCE PO 09/24/16 11:30 09/24/16 11:31 UNV Family History She denies family psychiatric history Social History Patient was born and raised in [place], she is , domicile with her in [facility], mother of 4 kids, unemployed, supported by , highest level of education is 11th grade Patient's Strengths (min. 2) verbal communications, support of her Physical Exam hypoactive, marked psychomotor retardation, mildly sedated, no pupillary abnormalities, no eps Vital Signs Vital Signs Date Time Temp Pulse Resp B/P Pulse Ox O2 Delivery O2 Flow Rate FiO2 09/24/16 10:00 104 09/24/16 08:56 100 Nasal Cannula 2.00 09/24/16 08:00 98.5 18 109/72 09/23/16 08:00 40 I/O 09/23/16 09/23/16 09/24/16 08:00 16:00 00:00 Intake Total 1169 ml 924 ml 833 ml Output Total 350.0 ml 1300 ml 925 ml Balance 819.0 ml -376 ml -92 ml Lab Results Laboratory Tests Test 09/23/16 09/24/16 11:59 06:43 White Blood Count 10.2 9.1 Red Blood Count 3.66 3.20 Hemoglobin 11.0 9.8 Hematocrit 32.4 28.7 Mean Corpuscular Volume 88.6 89.6 Mean Corpuscular Hemoglobin 30.2 30.7 Mean Corpuscular Hemoglobin 34.0 34.3 Concent Red Cell Distribution Width 13.2 13.0 Platelet Count 89 99 Mean Platelet Volume 8.1 8.7 Neutrophils (%) (Auto) 79.7 68.5 Lymphocytes (%) (Auto) 7.5 14.5 Monocytes (%) (Auto) 11.7 16.5 Eosinophils (%) (Auto) 0.8 0.2 Basophils (%) (Auto) 0.3 0.3 Neutrophils # (Auto) 8.1 6.2 Lymphocytes # (Auto) 0.8 1.3 Monocytes # (Auto) 1.2 1.5 Eosinophils # (Auto) 0.1 0.0 Basophils # (Auto) 0.0 0.0 CBC Comment AUTO DIFF AUTO DIFF Differential Comment AUTO DIFF FINAL DIFF CONFIRMED MANUAL Platelet Estimate LOW Platelet Morphology Comment NORMAL Sodium Level 146 147 Potassium Level 3.2 3.3 Chloride Level 114 116 Carbon Dioxide Level 20.6 22.8 Anion Gap 11 8 Blood Urea Nitrogen 10 12 Creatinine 0.34 0.43 Estimat Glomerular Filtration 206 157 Rate Random Glucose 122 97 Calcium Level 8.2 8.1 Phosphorus Level 1.1 1.8 Total Bilirubin 0.7 0.5 Aspartate Amino Transf 69 62 (AST/SGOT) Alanine Aminotransferase 35 43 (ALT/SGPT) Alkaline Phosphatase 82 66 Total Protein 5.8 6.0 Albumin 1.8 2.0 Differential Total Cells 100 Counted Neutrophils % (Manual) 55 Band Neutrophils % 14 Lymphocytes % 18 Monocytes % 13 Neutrophils # (Manual) 6.3 Atypical Lymphocytes Magnesium Level 1.9 Date/Time Procedure Status Source Growth 09/22/16 18:47 Aerobic Blood Culture - Preliminary Resulted Blood Other Gram Positive Cocci 09/22/16 18:47 Anaerobic Blood Culture - Final Resulted Blood Other QNS - SEE AEROBE REPORT 09/20/16 10:15 Urine Culture - Final Complete Urine Catheterized Urine Escherichia Coli Esbl Positive 09/20/16 10:05 Gram Stain - Final Complete Bronchial Washings Other 09/20/16 10:05 Bronchial Culture - Final Complete Escherichia Coli Esbl Positive Klebsiella Pneumoniae Mental Status Examination Appearance woman, [facility], [facility], appears older than his stated age, sedated, poorly cooperative Speech: Hesitant, Slow, Incoherent Memory: Impaired (describe) Thought Process: Organized, Linear Thought Content: Unremarkable Language Good grammar, good wording, fluent and spontaneous Fund of Knowledge Limited due to the level of sedation Hallucination Type: None Attention and Concentration: Abnormal Suicidal Ideation: Yes Previous Suicide Attempts: Yes Homicidal Ideation: No Previous Homicide Attempts: No Insight: Poor Affect: Irritable, Sad Motor Activity: Normal gait Assessment & Plan Problem List: (1) Major depressive disorder, recurrent Assessment & Plan: On psychiatric evaluation today patient is poorly cooperative, still sedated, difficult to engage in a conversation, however patient states that she overdosed with the intention to . She says that she has been depressed due to the annual commemoration of her mothers' , but also recent conflicts with her . Patient is unable to elaborate in the details and circumstances of her depression and in her symptomatology. As per patient has been depressed, very sensitive to rejection and frustration , with frequent mood swings, irritable, very tearful and isolated. Apparently this concatenation of events and symptoms have led to her recent very lethal suicidal attempt. She is still endorses suicidal ideation. Patient is currently a danger to herself has an elevated risk of suicidality. She needs psychiatric hospitalization for stabilization and safety. Please, transfer to med psych unit. We will complete psychiatric assessment once in the med psych unit. Needs to continue with the sitter in one-to-one in the ICU. No psychotropics indicated at this moment. ICD Code: F33.9 Assessment & Plan Estimated LOS: days Problem Qualifiers (1) Major depressive disorder, recurrent: Héctor Villasenor MD Sep 24, 2016 12:01
[2016-09-24] MEDS ORDERED: POTASSIUM PHOSPHATE INJ 15 MMOL in SODIUM CHLORIDE 0.9% INJ 150 ML IV ONE (13:00)
[2016-09-24] MEDS: 1/2 NS + KCL 20 MEQ INJ 1,000 ML IV SCH (13:15)
--- NOTE | 2016-09-24 15:15 | HHI.IDPN ---
Note Infectious Disease Note Patient is awake. Having difficulty expressing words. Appears lethargic. No distress. Afebrile. No SOB ALIA no vegetations seen. Sputum culture has ESBL e. coli. Blood culture 09/22 has gram positive cocci in aerobic bottles. one identified as Staph coag neg. ANTIBIOTICS: Imipenem. OBJECTIVE: Vital Signs Date Time Temp Pulse Resp B/P Pulse Ox O2 Delivery O2 Flow Rate FiO2 09/24/16 12:46 97.6 108 19 116/68 99 09/24/16 12:00 110 09/24/16 10:00 104 09/24/16 08:56 100 Nasal Cannula 2.00 09/24/16 08:00 98.5 101 18 109/72 100 09/24/16 08:00 101 09/24/16 07:00 93 20 119/70 100 09/24/16 06:00 108 09/24/16 06:00 108 22 118/67 100 09/24/16 05:00 104 20 109/64 100 09/24/16 04:00 97 19 109/68 100 09/24/16 04:00 97 09/24/16 04:00 98.8 97 18 109/68 100 09/24/16 03:00 104 20 108/65 100 09/24/16 02:00 103 19 111/67 99 09/24/16 02:00 103 09/24/16 01:00 115 20 107/62 100 09/24/16 00:00 99.1 111 20 105/66 100 09/24/16 00:00 111 20 105/66 89 09/24/16 00:00 111 09/24/16 00:00 111 20 105/66 89 09/23/16 23:00 106 19 97/52 100 09/23/16 22:00 98 09/23/16 22:00 98 16 108/66 100 09/23/16 21:00 103 20 111/77 93 09/23/16 20:00 95 17 110/62 96 09/23/16 20:00 95 09/23/16 20:00 99.5 95 20 110/62 96 09/23/16 19:48 98 Nasal Cannula 2.00 09/23/16 18:00 96 09/23/16 16:00 102 09/23/16 16:00 99.9 102 17 113/55 97 09/23/16 09/23/16 09/24/16 14:59 22:59 06:59 Intake Total 924 ml 833 ml 425 ml Output Total 1300 ml 925 ml 550 ml Balance -376 ml -92 ml -125 ml Intake Oral 120 ml 60 ml IV Total 707 ml 713 ml 365 ml Tube Feeding 217 ml Output Urine Total 1200 ml 825 ml 550 ml Stool Total 100 ml 100 ml Tube Feeding Residual Discard 0 ml # Bowel Movements 1 3 Laboratory Tests Test 09/23/16 09/24/16 11:59 06:43 White Blood Count 10.2 TH/MM3 9.1 TH/MM3 Red Blood Count 3.66 MIL/MM3 3.20 MIL/MM3 Hemoglobin 11.0 GM/DL 9.8 GM/DL Hematocrit 32.4 % 28.7 % Mean Corpuscular Volume 88.6 FL 89.6 FL Mean Corpuscular Hemoglobin 30.2 PG 30.7 PG Mean Corpuscular Hemoglobin 34.0 % 34.3 % Concent Red Cell Distribution Width 13.2 % 13.0 % Platelet Count 89 TH/MM3 99 TH/MM3 Mean Platelet Volume 8.1 FL 8.7 FL Neutrophils (%) (Auto) 79.7 % 68.5 % Lymphocytes (%) (Auto) 7.5 % 14.5 % Monocytes (%) (Auto) 11.7 % 16.5 % Eosinophils (%) (Auto) 0.8 % 0.2 % Basophils (%) (Auto) 0.3 % 0.3 % Neutrophils # (Auto) 8.1 TH/MM3 6.2 TH/MM3 Lymphocytes # (Auto) 0.8 TH/MM3 1.3 TH/MM3 Monocytes # (Auto) 1.2 TH/MM3 1.5 TH/MM3 Eosinophils # (Auto) 0.1 TH/MM3 0.0 TH/MM3 Basophils # (Auto) 0.0 TH/MM3 0.0 TH/MM3 CBC Comment AUTO DIFF AUTO DIFF Differential Comment AUTO DIFF FINAL DIFF CONFIRMED MANUAL Platelet Estimate LOW Platelet Morphology Comment NORMAL Differential Total Cells 100 Counted Neutrophils % (Manual) 55 % Band Neutrophils % 14 % Lymphocytes % 18 % Monocytes % 13 % Neutrophils # (Manual) 6.3 TH/MM3 Atypical Lymphocytes % Laboratory Tests Test 09/23/16 09/24/16 11:59 06:43 Sodium Level 146 MEQ/L 147 MEQ/L Potassium Level 3.2 MEQ/L 3.3 MEQ/L Chloride Level 114 MEQ/L 116 MEQ/L Carbon Dioxide Level 20.6 MEQ/L 22.8 MEQ/L Anion Gap 11 MEQ/L 8 MEQ/L Blood Urea Nitrogen 10 MG/DL 12 MG/DL Creatinine 0.34 MG/DL 0.43 MG/DL Estimat Glomerular Filtration 206 ML/MIN 157 ML/MIN Rate Random Glucose 122 MG/DL 97 MG/DL Calcium Level 8.2 MG/DL 8.1 MG/DL Phosphorus Level 1.1 MG/DL 1.8 MG/DL Total Bilirubin 0.7 MG/DL 0.5 MG/DL Aspartate Amino Transf 69 U/L 62 U/L (AST/SGOT) Alanine Aminotransferase 35 U/L 43 U/L (ALT/SGPT) Alkaline Phosphatase 82 U/L 66 U/L Total Protein 5.8 GM/DL 6.0 GM/DL Albumin 1.8 GM/DL 2.0 GM/DL Magnesium Level 1.9 MG/DL Microbiology Date/Time Procedure Status Source Growth 09/22/16 18:40 Aerobic Blood Culture - Preliminary Resulted Blood Other Staph Sp Coagulase Negative 09/22/16 18:40 Anaerobic Blood Culture - Final Resulted Blood Other QNS - SEE AEROBE REPORT 09/22/16 18:47 Aerobic Blood Culture - Preliminary Resulted Blood Other Gram Positive Cocci 09/22/16 18:47 Anaerobic Blood Culture - Final Resulted Blood Other QNS - SEE AEROBE REPORT IMAGING: Chest X-Ray 09/21/16 0600 Signed Impressions: Service Date/Time: Wednesday, September 21, 2016 03:35 - CONCLUSION: Persistent consolidation right lower lobes unchanged Harsh Chairez MD Head CT 09/18/16 1812 Signed Impressions: Service Date/Time: August 23:18 - CONCLUSION: No acute intracranial findings. Fred Cardoza MD PHYSICAL EXAMINATION GENERAL: Awake. Looks lethargic. HEENT: No icterus. Oropharynx intubated. NECK: Supple. No swelling or adenopathy. LUNGS: Breath sounds decreased. HEART: Regular rate and rhythm. No audible murmurs or rubs or gallops. ABDOMEN: Nontender. Soft. (+) bowel sounds. EXTREMITIES: No clubbing or cyanosis. 1-2+ edema of the hands. SKIN: No rash. NEUROLOGIC: Non focal. Oriented to name only. PSYCH: Calm, cooperative. IMPRESSION 1. ESBL E-coli. UTI. 2. Pneumonia due to ESBL e. coli. 3. Leukocytosis secondary to infection. 4. Acute respiratory failure, possibly aspiration as well following intubation with infiltrate having developed after intubation. 5. Positive blood culture with coag neg staph. Most likely contaminant. Does not appear septic at this time. RECOMMENDATIONS 1. Continue imipenem to cover a ESBL E coli in the urine and the lungs. 2. Monitor clinical response. 3. Repeat the CXR in am. Ward Quintero MD Sep 24, 2016 15:15
--- NOTE | 2016-09-24 16:44 | PD.CARD.PN ---
Subjective Subjective Remarks Extubated No chest pain/SOB Objective Medications Current Medications Medications (Trade) Dose Ordered Sig/Nisreen Route Start Time Stop Time Status Last Admin (NS Flush) 2 ml UNSCH PRN .XX 09/18/16 19:30 09/24/16 09:10 (NS Flush) 2 ml BID .XX 09/18/16 21:00 09/24/16 09:10 (Tylenol) 650 mg Q6H PRN PO 09/18/16 19:30 09/20/16 09:35 (Pepcid Inj) 20 mg Q12HR IV PUSH 09/18/16 21:00 09/24/16 09:09 (Ativan Inj) 1 mg Q1H PRN IV 09/18/16 19:30 09/24/16 00:40 (Zofran Inj) 4 mg Q6H PRN IV 09/18/16 19:30 (Lovenox Inj) 40 mg Q24H SQ 09/18/16 21:00 09/22/16 21:14 Miscellaneous Information 1 Q361D XX 09/18/16 19:30 09/20/16 20:00 (Chlorhexidine 2% Cloth) Taper DAILY@04 TOP 09/19/16 04:00 09/15/17 03:59 09/23/16 03:00 (Chlorhexidine 2% Cloth) 3 pack UNSCH PRN TOP 09/18/16 19:30 (Cheri-Colace) 1 tab BID PO 09/18/16 21:00 09/22/16 21:14 (Milk Of Magnesia Liq) 30 ml Q12H PRN PO 09/18/16 19:30 (Senokot) 17.2 mg Q12H PRN PO 09/18/16 19:30 (Dulcolax Supp) 10 mg DAILY PRN RECTAL 09/18/16 19:30 Lactulose 30 ml 30 ml DAILY PRN PO 09/18/16 19:30 Imipenem/ Cilastatin Sodium 500 mg/Sodium Chloride 100 ml @ 200 mls/hr Q6H IV 09/22/16 17:00 09/24/16 11:33 Potassium Phosphate 15 mmol/ Sodium Chloride 155 ml @ 38.75 mls/ hr ONCE ONCE IV 09/24/16 13:00 09/24/16 16:59 09/24/16 13:00 (2 NS + KCl 20 Meq Inj) 1,000 ml @ 84 mls/hr [id number] IV 09/24/16 13:15 Vital Signs / I&O Vital Signs Date Time Temp Pulse Resp B/P Pulse Ox O2 Delivery O2 Flow Rate FiO2 09/24/16 16:27 98.2 103 18 126/71 98 09/24/16 12:46 97.6 108 19 116/68 99 09/24/16 12:00 110 09/24/16 10:00 104 09/24/16 08:56 100 Nasal Cannula 2.00 09/24/16 08:00 98.5 101 18 109/72 100 09/24/16 08:00 101 09/24/16 07:00 93 20 119/70 100 09/24/16 06:00 108 09/24/16 06:00 108 22 118/67 100 09/24/16 05:00 104 20 109/64 100 09/24/16 04:00 97 19 109/68 100 09/24/16 04:00 97 09/24/16 04:00 98.8 97 18 109/68 100 09/24/16 03:00 104 20 108/65 100 09/24/16 02:00 103 19 111/67 99 09/24/16 02:00 103 09/24/16 01:00 115 20 107/62 100 09/24/16 00:00 99.1 111 20 105/66 100 09/24/16 00:00 111 20 105/66 89 09/24/16 00:00 111 09/24/16 00:00 111 20 105/66 89 09/23/16 23:00 106 19 97/52 100 09/23/16 22:00 98 09/23/16 22:00 98 16 108/66 100 09/23/16 21:00 103 20 111/77 93 09/23/16 20:00 95 17 110/62 96 09/23/16 20:00 95 09/23/16 20:00 99.5 95 20 110/62 96 09/23/16 19:48 98 Nasal Cannula 2.00 09/23/16 18:00 96 I/O 09/23/16 09/23/16 09/23/16 09/24/16 09/24/16 09/24/16 07:00 15:00 23:00 07:00 15:00 23:00 Intake Total 1169 ml 924 ml 833 ml 425 ml Output Total 350 ml 1300 ml 925 ml 550 ml Balance 819 ml -376 ml -92 ml -125 ml Intake Oral 120 ml 60 ml IV Total 836 ml 707 ml 713 ml 365 ml Tube Feeding 303 ml 217 ml Other 30 ml Output Urine Total 350 ml 1200 ml 825 ml 550 ml Stool Total 100 ml 100 ml Tube Feeding Residual Discard 0 ml 0 ml # Bowel Movements 2 1 3 Physical Exam GENERAL: NAD, alert and awake SKIN: Warm and dry. HEAD: Atraumatic. Normocephalic. EYES: Pupils equal and round. No scleral icterus. No injection or drainage. ENT: No nasal bleeding or discharge. Mucous membranes pink and moist. NECK: Trachea midline. No JVD. CARDIOVASCULAR: Regular rate and rhythm. RESPIRATORY: No accessory muscle use. Clear to auscultation. Breath sounds equal bilaterally. GASTROINTESTINAL: Abdomen soft, non-tender, nondistended. Hepatic and splenic margins not palpable. MUSCULOSKELETAL: Extremities without clubbing, cyanosis, or edema. No obvious deformities. NEUROLOGICAL: No focal deficits Laboratory Laboratory Tests Test 09/24/16 06:43 White Blood Count 9.1 TH/MM3 Red Blood Count 3.20 MIL/MM3 Hemoglobin 9.8 GM/DL Hematocrit 28.7 % Mean Corpuscular Volume 89.6 FL Mean Corpuscular Hemoglobin 30.7 PG Mean Corpuscular Hemoglobin 34.3 % Concent Red Cell Distribution Width 13.0 % Platelet Count 99 TH/MM3 Mean Platelet Volume 8.7 FL Neutrophils (%) (Auto) 68.5 % Lymphocytes (%) (Auto) 14.5 % Monocytes (%) (Auto) 16.5 % Eosinophils (%) (Auto) 0.2 % Basophils (%) (Auto) 0.3 % Neutrophils # (Auto) 6.2 TH/MM3 Lymphocytes # (Auto) 1.3 TH/MM3 Monocytes # (Auto) 1.5 TH/MM3 Eosinophils # (Auto) 0.0 TH/MM3 Basophils # (Auto) 0.0 TH/MM3 CBC Comment AUTO DIFF Differential Total Cells 100 Counted Neutrophils % (Manual) 55 % Band Neutrophils % 14 % Lymphocytes % 18 % Monocytes % 13 % Neutrophils # (Manual) 6.3 TH/MM3 Differential Comment FINAL DIFF MANUAL Atypical Lymphocytes % Sodium Level 147 MEQ/L Potassium Level 3.3 MEQ/L Chloride Level 116 MEQ/L Carbon Dioxide Level 22.8 MEQ/L Anion Gap 8 MEQ/L Blood Urea Nitrogen 12 MG/DL Creatinine 0.43 MG/DL Estimat Glomerular Filtration 157 ML/MIN Rate Random Glucose 97 MG/DL Calcium Level 8.1 MG/DL Phosphorus Level 1.8 MG/DL Magnesium Level 1.9 MG/DL Total Bilirubin 0.5 MG/DL Aspartate Amino Transf 62 U/L (AST/SGOT) Alanine Aminotransferase 43 U/L (ALT/SGPT) Alkaline Phosphatase 66 U/L Total Protein 6.0 GM/DL Albumin 2.0 GM/DL Assessment and Plan Problem List: (1) Acute respiratory failure with hypoxia (2) Overdose of muscle relaxant (3) Cardiomyopathy Assessment and Plan 1) Overdose on multiple meds 2) TTE showing possible vegetation ALIA done, no vegetation noted 3) New cardiomyopathy Possible due to meds from overdose Will consider ischemic evaluation once stable 4) Mildly confused today, will have to see before ischemic evaluation Problem Qualifiers (1) Overdose of muscle relaxant: Qualified Code: T48.202A - Overdose of muscle relaxant, intentional self-harm, initial encounter Parker Triplett DO Sep 24, 2016 16:44
--- NOTE | 2016-09-24 18:07 | HHI.PR ---
Subjective Remarks Patient seen today around 2 PM. Says she is feeling well. Denies any chest pain or shortness of breath. She is disoriented but agreeable. She denies any pain. She does report that she attempted suicide. Objective Vital Signs Date Time Temp Pulse Resp B/P Pulse Ox O2 Delivery O2 Flow Rate FiO2 09/24/16 16:27 98.2 103 18 126/71 98 09/24/16 12:46 97.6 108 19 116/68 99 09/24/16 12:00 110 09/24/16 10:00 104 09/24/16 08:56 100 Nasal Cannula 2.00 09/24/16 08:00 98.5 101 18 109/72 100 09/24/16 08:00 101 09/24/16 07:00 93 20 119/70 100 09/24/16 06:00 108 09/24/16 06:00 108 22 118/67 100 09/24/16 05:00 104 20 109/64 100 09/24/16 04:00 97 19 109/68 100 09/24/16 04:00 97 09/24/16 04:00 98.8 97 18 109/68 100 09/24/16 03:00 104 20 108/65 100 09/24/16 02:00 103 19 111/67 99 09/24/16 02:00 103 09/24/16 01:00 115 20 107/62 100 09/24/16 00:00 99.1 111 20 105/66 100 09/24/16 00:00 111 20 105/66 89 09/24/16 00:00 111 09/24/16 00:00 111 20 105/66 89 09/23/16 23:00 106 19 97/52 100 09/23/16 22:00 98 09/23/16 22:00 98 16 108/66 100 09/23/16 21:00 103 20 111/77 93 09/23/16 20:00 95 17 110/62 96 09/23/16 20:00 95 09/23/16 20:00 99.5 95 20 110/62 96 09/23/16 19:48 98 Nasal Cannula 2.00 I/O 09/23/16 09/23/16 09/23/16 09/24/16 09/24/16 09/24/16 07:00 15:00 23:00 07:00 15:00 23:00 Intake Total 1169 ml 924 ml 833 ml 425 ml Output Total 350 ml 1300 ml 925 ml 550 ml Balance 819 ml -376 ml -92 ml -125 ml Intake Oral 120 ml 60 ml IV Total 836 ml 707 ml 713 ml 365 ml Tube Feeding 303 ml 217 ml Other 30 ml Output Urine Total 350 ml 1200 ml 825 ml 550 ml Stool Total 100 ml 100 ml Tube Feeding Residual Discard 0 ml 0 ml # Bowel Movements 2 1 3 Result Diagram: 09/24/1664209/24/16642 Objective Remarks GENERAL: patient lying in bed. Appears comfortable. Disoriented cooperative SKIN: Warm and dry. HEAD: Normocephalic. EYES: No scleral icterus. No injection or drainage. NECK: Supple, trachea midline. No JVD. CARDIOVASCULAR: Regular rate and rhythm without murmurs, gallops, or rubs. RESPIRATORY: Breath sounds equal bilaterally. No accessory muscle use. GASTROINTESTINAL: Abdomen soft, non-tender, nondistended. MUSCULOSKELETAL: No cyanosis, or edema. BACK: Nontender without obvious deformity. No CVA tenderness. A/P Assessment and Plan //Acute Respiratory failure -09/18 Intubated for an airway protection -Daily CPAP trials -09/20 Bronchoscopy with BAL -DuoNeb every 6 hours schedule every 2 hours when necessary. Added Mucomyst nebs/ chest PT on 09/21 -Extubated 09/23 //Metabolic acidosis. Resolved - 09/21 Sodium bicarbonate drip discontinued - Monitor pH trend //Hypernatremia. -09/24. Sodium 147. We'll switch to one half normal saline. Follow-up labs tomorrow. //Suicidal attempt -Overdose on muscle relaxants. -Psychiatry following. Continues with sitter. Continues with Lopez Act in place //hypokalemia. Potassium low this morning. Replaced. //Overdose - IV fluids - Serial labs -CK in 300s -Repeat EKG 09/19, QT prolongation resolved, no further recommendations per poison control -Continue to monitor as patient becomes more alert. //Mitral valve vegetation on transthoracic echo. ALIA done on 09/22 did not reveal any vegetations however LVEF noted to be 30%. //Cardiomyopathy. Echocardiogram with ejection fraction 30%. Cardiology following. We'll need ischemic workup when stable. //Probable aspiration pneumonia Sepsis On azithromycin/Zosyn for empiric antibiotic coverage. -Follow-up blood and sputum cultures. Urine culture with ESBL Escherichia coli. ID consult requested as patient probably needs to be switched to a carbapenem. -Infectious disease following. Continue antibiotics as per infectious disease. //DVT GI prophylaxis - Teds SCDs - Continue Subcutaneous heparin and Pepcid Discharge Planning if labs are stable by tomorrow, likely discharge to psychiatry. Michele Courtney MD Sep 24, 2016 18:07
[2016-09-24] MEDS: ENOXAPARIN SODIUM 40 MG/0.4 ML SYRINGE SQ SCH (21:38)
[2016-09-25] MEDS: CHLORHEXIDINE GLUCONATE 2 % 1 PACK (2 CLOTHS) TOP SCH (00:03)
[2016-09-25] MEDS: IMIPENEM/CILASTATIN INJ 500 MG in SODIUM CHLORIDE 0.9% INJ 100 ML IV SCH ×3 (00:18→12:34)
[2016-09-25] MEDS: RESP: ALBUTEROL 2.5 MG/IPRATROPIUM 0.5 MG NEB (SCH) NEB ×4 (01:08→12:12)
[2016-09-25] MEDS: 1/2 NS + KCL 20 MEQ INJ 1,000 ML IV SCH (01:10)
[2016-09-25 01:11] VITALS: O2SAT 98
[2016-09-25 01:13] VITALS: BP 104/69; PULSE 109; RESP 16; TEMP 98.9; O2SAT 97
[2016-09-25] MEDS: LORazepam 2 MG/ML VIAL IV PRN (03:56)
[2016-09-25 04:00] VITALS: BP 117/74; PULSE 109; RESP 16; TEMP 99.8; O2SAT 99
[2016-09-25 08:00] VITALS: BP_SYST 110; BP_SYST 149; BP_DIAS 63; BP_DIAS 73; PULSE 68; PULSE 94; RESP 18; TEMP 96.4; TEMP 97.9; O2SAT 97; O2SAT 98
[2016-09-25] MEDS: RESP: ACETYLCYSTEINE 10% 30 ML NEB NEB SCH ×2 (08:00)
[2016-09-25 08:38] VITALS: O2SAT 99
--- NOTE | 2016-09-25 09:00 | RADRPT ---
EXAM DATE/TIME: 09/25/2016 05:09 [facility] COMPARISON: CHEST SINGLE AP, September 21, 2016, 3:35. INDICATIONS : Shortness of breath. Followup pulmonary infiltrates. MEDICAL HISTORY : None. SURGICAL HISTORY : None. ENCOUNTER: Subsequent ACUITY: 1 week PAIN SCORE: Non-responsive. LOCATION: Bilateral chest FINDINGS: A single AP portable erect view of the chest was obtained and demonstrated the patient is status post extubation and removal of nasogastric tube. Bibasilar and infrahilar alveolar opacities remain right slightly greater than left. The heart size is within normal limits and there is no effusion. The bon y thorax remains intact. CONCLUSION: 1. Interval extubation and removal of nasogastric tube. 2. Hazy alveolar opacity remains in the infrahilar regions and both lung bases. Beny Serra MD on September 25, 2016 at 5:35 Board Certified Radiologist. This report was verified electronically.
[2016-09-25] MEDS: DOCUSATE SODIUM 50 MG/SENNA 8.6 MG TAB PO SCH (09:29)
[2016-09-25] MEDS: FAMOTIDINE 20 MG/2 ML VIAL IV PUSH SCH (09:30)
[2016-09-25] MEDS: SODIUM CHLORIDE 0.9% FLUSH 10 ML FLUSH SCH (09:30)
--- NOTE | 2016-09-25 10:54 | HHI.IDPN ---
Note Infectious Disease Note Patient is awake. More alert. Expressing words better. forgetful. Expressing remorse about trying to kill herself. Appears anxious. oriented to self. Knows she is in [place]. Afebrile. No SOB ALIA no vegetations seen. Sputum culture has ESBL e. coli. Blood culture 09/22 has Staph coag neg. in aerobic bottles. ANTIBIOTICS: Imipenem. OBJECTIVE: Vital Signs Date Time Temp Pulse Resp B/P Pulse Ox O2 Delivery O2 Flow Rate FiO2 09/25/16 08:38 99 21 09/25/16 08:00 96.4 94 18 110/63 98 09/25/16 04:00 99.8 109 16 117/74 99 09/25/16 01:13 98.9 109 16 104/69 97 09/25/16 01:11 98 21 09/24/16 21:41 97 21 09/24/16 21:08 98.5 106 18 113/67 96 09/24/16 16:27 98.2 103 18 126/71 98 09/24/16 12:46 97.6 108 19 116/68 99 09/24/16 12:00 110 09/24/16 09/24/16 09/25/16 15:00 23:00 07:00 Intake Total 892 ml Output Total 600 ml 2000 ml Balance -600 ml -1108 ml IV Total 892 ml Output Urine Total 600 ml 2000 ml # Bowel Movements 3 0 Laboratory Tests Test 09/23/16 09/24/16 11:59 06:43 White Blood Count 10.2 TH/MM3 9.1 TH/MM3 Red Blood Count 3.66 MIL/MM3 3.20 MIL/MM3 Hemoglobin 11.0 GM/DL 9.8 GM/DL Hematocrit 32.4 % 28.7 % Mean Corpuscular Volume 88.6 FL 89.6 FL Mean Corpuscular Hemoglobin 30.2 PG 30.7 PG Mean Corpuscular Hemoglobin 34.0 % 34.3 % Concent Red Cell Distribution Width 13.2 % 13.0 % Platelet Count 89 TH/MM3 99 TH/MM3 Mean Platelet Volume 8.1 FL 8.7 FL Neutrophils (%) (Auto) 79.7 % 68.5 % Lymphocytes (%) (Auto) 7.5 % 14.5 % Monocytes (%) (Auto) 11.7 % 16.5 % Eosinophils (%) (Auto) 0.8 % 0.2 % Basophils (%) (Auto) 0.3 % 0.3 % Neutrophils # (Auto) 8.1 TH/MM3 6.2 TH/MM3 Lymphocytes # (Auto) 0.8 TH/MM3 1.3 TH/MM3 Monocytes # (Auto) 1.2 TH/MM3 1.5 TH/MM3 Eosinophils # (Auto) 0.1 TH/MM3 0.0 TH/MM3 Basophils # (Auto) 0.0 TH/MM3 0.0 TH/MM3 CBC Comment AUTO DIFF AUTO DIFF Differential Comment AUTO DIFF FINAL DIFF CONFIRMED MANUAL Platelet Estimate LOW Platelet Morphology Comment NORMAL Differential Total Cells 100 Counted Neutrophils % (Manual) 55 % Band Neutrophils % 14 % Lymphocytes % 18 % Monocytes % 13 % Neutrophils # (Manual) 6.3 TH/MM3 Atypical Lymphocytes % Laboratory Tests Test 09/23/16 09/24/16 11:59 06:43 Sodium Level 146 MEQ/L 147 MEQ/L Potassium Level 3.2 MEQ/L 3.3 MEQ/L Chloride Level 114 MEQ/L 116 MEQ/L Carbon Dioxide Level 20.6 MEQ/L 22.8 MEQ/L Anion Gap 11 MEQ/L 8 MEQ/L Blood Urea Nitrogen 10 MG/DL 12 MG/DL Creatinine 0.34 MG/DL 0.43 MG/DL Estimat Glomerular Filtration 206 ML/MIN 157 ML/MIN Rate Random Glucose 122 MG/DL 97 MG/DL Calcium Level 8.2 MG/DL 8.1 MG/DL Phosphorus Level 1.1 MG/DL 1.8 MG/DL Total Bilirubin 0.7 MG/DL 0.5 MG/DL Aspartate Amino Transf 69 U/L 62 U/L (AST/SGOT) Alanine Aminotransferase 35 U/L 43 U/L (ALT/SGPT) Alkaline Phosphatase 82 U/L 66 U/L Total Protein 5.8 GM/DL 6.0 GM/DL Albumin 1.8 GM/DL 2.0 GM/DL Magnesium Level 1.9 MG/DL Microbiology Date/Time Procedure Status Source Growth 09/22/16 18:40 Aerobic Blood Culture - Preliminary Resulted Blood Other Staph Sp Coagulase Negative 09/22/16 18:40 Anaerobic Blood Culture - Final Resulted Blood Other QNS - SEE AEROBE REPORT 09/22/16 18:47 Aerobic Blood Culture - Preliminary Resulted Blood Other Staph Sp Coagulase Negative 09/22/16 18:47 Anaerobic Blood Culture - Final Resulted Blood Other QNS - SEE AEROBE REPORT IMAGING: Chest X-Ray 09/25/16 0600 Signed Impressions: Service Date/Time: September 05:09 - CONCLUSION: 1. Interval extubation and removal of nasogastric tube. 2. Hazy alveolar opacity remains in the infrahilar regions and both lung bases. Beny Serra MD PHYSICAL EXAMINATION GENERAL: Awake and alert. HEENT: No icterus. NECK: Supple. No swelling or adenopathy. LUNGS: Breath sounds decreased. Slight rhonchi. HEART: Regular rate and rhythm. No audible murmurs or rubs or gallops. ABDOMEN: Nontender. Soft. (+) bowel sounds. EXTREMITIES: No clubbing or cyanosis. 1+ edema of the hands at left forearm. SKIN: No rash. NEUROLOGIC: Non focal. Oriented to name only. PSYCH: Anxious, cooperative. IMPRESSION 1. ESBL E-coli. UTI. 2. Pneumonia due to ESBL e. coli. Still with bilateral lung infiltrates on CXR. 3. Leukocytosis secondary to infection. 4. Acute respiratory failure, possibly aspiration as well following intubation with infiltrate having developed after intubation. 5. Bacteremia coag neg staph. Most likely contaminant. Does not appear septic at this time. Will repeat blood culture. RECOMMENDATIONS 1. Continue imipenem to cover a ESBL E coli in the urine and the lungs. 2. Monitor clinical response. 3. Repeat the blood cultures. Ward Quintero MD Sep 25, 2016 10:54 Ward Quintero MD Sep 25, 2016 10:54
[2016-09-25] MEDS ORDERED: IMIP1INJ IV (11:46)
[2016-09-25] MEDS ORDERED: ALBU0.08 INH (11:46)
[2016-09-25] MEDS ORDERED: ACET10SO3 NEB (11:46)
[2016-09-25] MEDS ORDERED: IPRASOL NEB (11:46)
--- NOTE | 2016-09-25 12:32 | PD.CARD.PN ---
Subjective Subjective Remarks No events overnight No chest pain/SOB Objective Medications Current Medications Medications (Trade) Dose Ordered Sig/Nisreen Route Start Time Stop Time Status Last Admin (NS Flush) 2 ml UNSCH PRN .XX 09/18/16 19:30 09/24/16 09:10 (NS Flush) 2 ml BID .XX 09/18/16 21:00 09/25/16 09:30 (Tylenol) 650 mg Q6H PRN PO 09/18/16 19:30 09/20/16 09:35 (Pepcid Inj) 20 mg Q12HR IV PUSH 09/18/16 21:00 09/25/16 09:30 (Ativan Inj) 1 mg Q1H PRN IV 09/18/16 19:30 09/24/16 21:38 (Zofran Inj) 4 mg Q6H PRN IV 09/18/16 19:30 (Lovenox Inj) 40 mg Q24H SQ 09/18/16 21:00 09/24/16 21:38 Miscellaneous Information 1 [id number] XX 09/18/16 19:30 09/20/16 20:00 (Chlorhexidine 2% Cloth) Taper DAILY@04 TOP 09/19/16 04:00 09/15/17 03:59 09/23/16 03:00 (Chlorhexidine 2% Cloth) 3 pack UNSCH PRN TOP 09/18/16 19:30 (Cheri-Colace) 1 tab BID PO 09/18/16 21:00 09/25/16 09:29 (Milk Of Magnesia Liq) 30 ml Q12H PRN PO 09/18/16 19:30 (Senokot) 17.2 mg Q12H PRN PO 09/18/16 19:30 (Dulcolax Supp) 10 mg DAILY PRN RECTAL 09/18/16 19:30 Lactulose 30 ml 30 ml DAILY PRN PO 09/18/16 19:30 Imipenem/ Cilastatin Sodium 500 mg/Sodium Chloride 100 ml @ 200 mls/hr Q6H IV 09/22/16 17:00 09/25/16 04:31 (1/2 NS + KCl 20 Meq Inj) 1,000 ml @ 84 mls/hr [id number] IV 09/24/16 13:15 09/24/16 13:15 Vital Signs / I&O Vital Signs Date Time Temp Pulse Resp B/P Pulse Ox O2 Delivery O2 Flow Rate FiO2 09/25/16 08:38 99 21 09/25/16 08:00 96.4 94 18 110/63 98 09/25/16 04:00 99.8 109 16 117/74 99 09/25/16 01:13 98.9 109 16 104/69 97 09/25/16 01:11 98 21 09/24/16 21:41 97 21 09/24/16 21:08 98.5 106 18 113/67 96 09/24/16 16:27 98.2 103 18 126/71 98 09/24/16 12:46 97.6 108 19 116/68 99 I/O 09/24/16 09/24/16 09/24/16 09/25/16 09/25/16 09/25/16 06:59 14:59 22:59 06:59 14:59 22:59 Intake Total 425 ml 892 ml Output Total 550 ml 600 ml 2000 ml Balance -125 ml -600 ml -1108 ml Intake Oral 60 ml IV Total 365 ml 892 ml Output Urine Total 550 ml 600 ml 2000 ml # Bowel Movements 3 3 0 Physical Exam GENERAL: NAD, alert and awake SKIN: Warm and dry. HEAD: Atraumatic. Normocephalic. EYES: Pupils equal and round. No scleral icterus. No injection or drainage. ENT: No nasal bleeding or discharge. Mucous membranes pink and moist. NECK: Trachea midline. No JVD. CARDIOVASCULAR: Regular rate and rhythm. RESPIRATORY: No accessory muscle use. Clear to auscultation. Breath sounds equal bilaterally. GASTROINTESTINAL: Abdomen soft, non-tender, nondistended. Hepatic and splenic margins not palpable. MUSCULOSKELETAL: Extremities without clubbing, cyanosis, or edema. No obvious deformities. NEUROLOGICAL: No focal deficits Assessment and Plan Problem List: (1) Acute respiratory failure with hypoxia (2) Overdose of muscle relaxant (3) Cardiomyopathy Assessment and Plan 1) Overdose on multiple meds 2) TTE showing possible vegetation ALIA done, no vegetation noted 3) New cardiomyopathy Possible due to meds from overdose Will add low dose Coreg 4) Concern for mild delirium and ability to take medications Will plan to hold off on ischemic evaluation due to the above Cardiovascularly stable for psych placement Afterwards should have follow up with cardiology for consideration of ischemic evaluation 5) Will see PRN, call with questions Problem Qualifiers (1) Overdose of muscle relaxant: Qualified Code: T48.202A - Overdose of muscle relaxant, intentional self-harm, initial encounter Parker Triplett DO Sep 25, 2016 12:32
[2016-09-25 13:17] LABS: AUTOMATED NEUTROPHIL # 5.7 TH/MM3 (1.8-7.7); BASOPHIL # 0.1 TH/MM3 (0-0.2); BASOPHIL % 0.6 % (0.0-2.0); EOSINOPHIL # 0.1 TH/MM3 (0-0.4); EOSINOPHIL % 0.8 % (0.0-4.0); HEMATOCRIT 31.4 % (35.0-46.0); HEMO FLAGS DIFF FINAL; LYMPH % 19.5 % (9.0-44.0); LYMPHOCYTE # 1.7 TH/MM3 (1.0-4.8); MEAN CELL VOLUME 87.6 FL (80.0-100.0); MEAN CORPUSCULAR HEMOGLOBIN 29.8 PG (27.0-34.0); MONO % 15.1 % (0.0-8.0); PLATELET COUNT 144 TH/MM3 (150-450); RED BLOOD COUNT 3.58 MIL/MM3 (4.00-5.30); WHITE BLOOD COUNT 8.9 TH/MM3 (4.0-11.0)
[2016-09-25 13:50] LABS: ANION GAP 8 MEQ/L (5-15); AST (GOT) 42 U/L (15-37); BICARBONATE 23.7 MEQ/L (21.0-32.0); BLOOD UREA NITROGEN 8 MG/DL (7-18); CHLORIDE 110 MEQ/L (98-107); GLOMERULAR FILTRATION RATE 161 ML/MIN (>89); POTASSIUM 3.4 MEQ/L (3.5-5.1); SODIUM (NA) 142 MEQ/L (136-145)
[2016-09-25 13:54] LABS: ALKALINE PHOSPHATASE 67 U/L (45-117); ALT (GPT) 40 U/L (10-53); TOTAL BILIRUBIN ADULT 0.8 MG/DL (0.2-1.0)
--- NOTE | 2016-09-25 22:54 | HHI.DS ---
Discharge Summary Admission Date Sep 18, 2016 at 19:27 Discharge Date: Sep 25, 2016 Admitting Diagnosis Respiratory failure, Overdose. Procedures 09/20 bronchoscopy with BAL Brief History - From Admission 50-year-old female arrives with altered mental status by EMS. Per chart documentation the patient had most likely intentional overdose of Robaxin as well as possible overdose of Klonopin. Apparently this is the birthday of her mother . The patient on arrival was a GCS of 3, and was intubated by ED attending for an airway protection. CBC/BMP: 09/25/16 1250 09/25/16 1250 Significant Findings Laboratory Tests Test 09/23/16 09/24/16 09/25/16 11:59 06:43 12:50 Red Blood Count 3.66 MIL/MM3 3.20 MIL/MM3 3.58 MIL/MM3 (4.00-5.30) (4.00-5.30) (4.00-5.30) Hemoglobin 11.0 GM/DL 9.8 GM/DL 10.7 GM/DL (11.6-15.3) (11.6-15.3) (11.6-15.3) Hematocrit 32.4 % 28.7 % 31.4 % (35.0-46.0) (35.0-46.0) (35.0-46.0) Platelet Count 89 TH/MM3 99 TH/MM3 144 TH/MM3 (150-450) (150-450) (150-450) Neutrophils (%) (Auto) 79.7 % (16.0-70.0) Lymphocytes (%) (Auto) 7.5 % (9.0-44.0) Monocytes (%) (Auto) 11.7 % 16.5 % 15.1 % (0.0-8.0) (0.0-8.0) (0.0-8.0) Neutrophils # (Auto) 8.1 TH/MM3 (1.8-7.7) Lymphocytes # (Auto) 0.8 TH/MM3 (1.0-4.8) Monocytes # (Auto) 1.2 TH/MM3 1.5 TH/MM3 1.3 TH/MM3 (0-0.9) (0-0.9) (0-0.9) Platelet Estimate LOW (NORMAL) Sodium Level 146 MEQ/L 147 MEQ/L (136-145) (136-145) Potassium Level 3.2 MEQ/L 3.3 MEQ/L 3.4 MEQ/L (3.5-5.1) (3.5-5.1) (3.5-5.1) Chloride Level 114 MEQ/L 116 MEQ/L 110 MEQ/L (98-107) (98-107) (98-107) Carbon Dioxide Level 20.6 MEQ/L (21.0-32.0) Creatinine 0.34 MG/DL 0.43 MG/DL 0.42 MG/DL (0.50-1.00) (0.50-1.00) (0.50-1.00) Random Glucose 122 MG/DL (74-106) Calcium Level 8.2 MG/DL 8.1 MG/DL 8.4 MG/DL (8.5-10.1) (8.5-10.1) (8.5-10.1) Phosphorus Level 1.1 MG/DL 1.8 MG/DL (2.5-4.9) (2.5-4.9) Aspartate Amino Transf 69 U/L (15-37) 62 U/L (15-37) 42 U/L (15-37) (AST/SGOT) Total Protein 5.8 GM/DL 6.0 GM/DL 6.2 GM/DL (6.4-8.2) (6.4-8.2) (6.4-8.2) Albumin 1.8 GM/DL 2.0 GM/DL 2.2 GM/DL (3.4-5.0) (3.4-5.0) (3.4-5.0) Band Neutrophils % 14 % (0-6) Monocytes % 13 % (0-8) Imaging Last Impressions Chest X-Ray 09/25/16 0600 Signed Impressions: Service Date/Time: September 05:09 - CONCLUSION: 1. Interval extubation and removal of nasogastric tube. 2. Hazy alveolar opacity remains in the infrahilar regions and both lung bases. Beny Serra MD Head CT 09/18/16 1812 Signed Impressions: Service Date/Time: , September 18, 2016 23:18 - CONCLUSION: No acute intracranial findings. Fred Cardoza MD Hospital Course //Acute Respiratory failure -09/18 Intubated for an airway protection -Daily CPAP trials -09/20 Bronchoscopy with BAL -DuoNeb every 6 hours schedule every 2 hours when necessary. Added Mucomyst nebs/ chest PT on 09/21 -Extubated 09/23 //Metabolic acidosis. Resolved - 09/21 Sodium bicarbonate drip discontinued - Monitor pH trend //Hypernatremia. -09/24. Sodium 147. We'll switch to one half normal saline. Follow-up labs tomorrow. //Suicidal attempt -Overdose on muscle relaxants. -Psychiatry following. Continues with sitter. Continues with Lopez Act in place //hypokalemia. Potassium low this morning. Replaced. //Overdose - IV fluids - Serial labs -CK in 300s -Repeat EKG 09/19, QT prolongation resolved, no further recommendations per poison control -Continue to monitor as patient becomes more alert. //Mitral valve vegetation on transthoracic echo. ALIA done on 09/22 did not reveal any vegetations however LVEF noted to be 30%. //Cardiomyopathy. Echocardiogram with ejection fraction 30%. Cardiology following. We'll need ischemic workup when stable. //Probable aspiration pneumonia Sepsis On azithromycin/Zosyn for empiric antibiotic coverage. -Follow-up blood and sputum cultures. Urine culture with ESBL Escherichia coli. ID consult requested as patient probably needs to be switched to a carbapenem. -Infectious disease following. Continue antibiotics as per infectious disease. //gram positive bacteremia. Continue antibiotics as per infectious disease. Appreciate infectious disease assistance. //DVT GI prophylaxis - Teds SCDs - Continue Subcutaneous heparin and Pepcid Pt Condition on Discharge: Stable Discharge Disposition: Disc to [facility] Discharge Time: > 30 minutes Discharge Instructions DIET: Follow Instructions for: As Tolerated, No Restrictions Speech Therapy-Diet Recommends: Mechanical Soft Activities you can perform: Regular-No Restrictions Follow up Referrals: Cardiology - 3 Weeks with Parker Triplett DO Infectious Disease - Next Day with Ward Quintero MD New Medications: Imipenem-Cilastatin Inj (Primaxin Inj) 500-500 mg Inj 500 MG IV Q6H Infection Days 10 Ref 0 VIAL Acetylcysteine Liq/Neb (Acetylcysteine Liq/Neb) 100 mg/ml Soln 2 ML NEB Q8HR NEB pneumonia Days 30 ML Albuterol Neb (Albuterol Neb) 2.5 Mg/3 Ml Neb 2.5 MG INH Q2HR NEB PRN SOB/WHEEZING Days 28 NEBULE Ipratropium-Albuterol Neb (Duoneb) 0.5-2.5 Mg/3 Ml Neb 1 AMPULE NEB Q4HR NEB asthma Days 30 ML Discontinued Medications: Methocarbamol (Methocarbamol) 500 Mg Tab 500 MG PO TID Muscle Spasm #90 Ref 0 TAB Michele Courtney MD Sep 25, 2016 22:54
== END 2016-09-25 13:59 | DRG 987 ==
LOC: NEPC 17:59 → NEDA 18:51 → OBSVTOIN 19:27 → HIME 22:05 → N05A 09-24 12:28
PROVIDERS: ADMIT Internal Medicine; ATTEND Internal Medicine
PROC: 5A1955Z Respiratory Ventilation, Greater than 96 Consecutive Hours (ICD-10-PCS; principal; 2016-09-18)
PROC: 0BH17EZ Insertion of Endotracheal Airway into Trachea, Via Natural or Artificial Opening (ICD-10-PCS; 2016-09-18)
PROC: 0T9B70Z Drainage of Bladder with Drainage Device, Via Natural or Artificial Opening (ICD-10-PCS; 2016-09-18)
PROC: 0B9J8ZX Drainage of Left Lower Lung Lobe, Via Natural or Artificial Opening Endoscopic, Diagnostic (ICD-10-PCS; 2016-09-20)
PROC: 0B9C8ZX Drainage of Right Upper Lung Lobe, Via Natural or Artificial Opening Endoscopic, Diagnostic (ICD-10-PCS; 2016-09-20)
PROC: 0B9G8ZX Drainage of Left Upper Lung Lobe, Via Natural or Artificial Opening Endoscopic, Diagnostic (ICD-10-PCS; 2016-09-20)
PROC: 0B9D8ZX Drainage of Right Middle Lung Lobe, Via Natural or Artificial Opening Endoscopic, Diagnostic (ICD-10-PCS; 2016-09-20)
PROC: 0B9F8ZX Drainage of Right Lower Lung Lobe, Via Natural or Artificial Opening Endoscopic, Diagnostic (ICD-10-PCS; 2016-09-20)
PROC: B246ZZ4 Ultrasonography of Right and Left Heart, Transesophageal (ICD-10-PCS; 2016-09-22)
DX: T42.8X2A Poisoning by antiparkinsonism drugs and other central muscle-tone depressants, intentional self-harm, initial encounter (principal); J96.01 Acute respiratory failure with hypoxia; J69.0 Pneumonitis due to inhalation of food and vomit; A41.9 Sepsis, unspecified organism; J15.5 Pneumonia due to Escherichia coli; E87.2 Acidosis; J38.4 Edema of larynx; J15.6 Pneumonia due to other Gram-negative bacteria; I42.9 Cardiomyopathy, unspecified; N39.0 Urinary tract infection, site not specified; E87.0 Hyperosmolality and hypernatremia; T42.4X2A Poisoning by benzodiazepines, intentional self-harm, initial encounter; I34.0 Nonrheumatic mitral (valve) insufficiency; Z16.12 Extended spectrum beta lactamase (ESBL) resistance; E83.39 Other disorders of phosphorus metabolism; E87.6 Hypokalemia
CPT/HCPCS: 31500; 31624; 36600; 51702; 70450; 71010; 76937; 80048; 80053; 80307; 82140; 82550; 82552; 82805; 82948; 83605; 83735; 84100; 84132; 84155; 84443; 84484; 85007; 85025; 85027; 85610; 85730; 86403; 87040; 87070; 87077; 87086; 87186; 87205; 87493; 87641; 93005; 93306; 93312; 93320; 93325; 94002; 94003; 94640; 94664; 94667; 94668; J0330; J0456; J0610; J0743; J1100; J1650; J2060; J2543; J3480; J7030; J7050; J7070; J7608; J7613

== ENCOUNTER 2016-09-25 14:14 | Inpatient (IN) | payer OTHER ==
[~2016-09-25 14:14] MED LIST: ACET10SO3 NEB; ALBU0.08 INH; IMIP1INJ IV; IPRASOL NEB; METH500T3 PO
[2016-09-25 14:54] VITALS: BP 116/66; PULSE 97; RESP 16; TEMP 99.1; O2SAT 96
[2016-09-25] MEDS: RESP: ALBUTEROL 2.5 MG/IPRATROPIUM 0.5 MG NEB (SCH) NEB ×2 (17:02→22:20)
[2016-09-25] MEDS ORDERED: MAGNESIUM HYDROXIDE SUSP 30 ML CUP PO PRN (18:00)
[2016-09-25] MEDS ORDERED: LORazepam 2 MG/ML VIAL IM PRN ×2 (18:00)
[2016-09-25] MEDS ORDERED: LORazepam 0.5 MG TAB PO PRN (18:00)
[2016-09-25] MEDS: NICOTINE 21 MG/24 HR PATCH T-DERMAL SCH (18:00)
[2016-09-25 18:06] VITALS: BP 119/70; PULSE 92; RESP 18; TEMP 98.1; O2SAT 97
[2016-09-25] MEDS: NS IV SCH ×2 (20:00)
[2016-09-25] MEDS ORDERED: ASP: Documented ESBL, MDR A baumannii or P. aeruginosa ONE (20:00)
[2016-09-25] MEDS: IMIPENEM IV SCH ×2 (20:00)
[2016-09-25] MEDS: [UNRECOGNIZED DRUG - OTHER] IV SCH ×2 (20:00)
[2016-09-25] MEDS: ACETAMINOPHEN 325 MG TAB PO PRN (20:30)
[2016-09-25] MEDS ORDERED: [UNRECOGNIZED DRUG - OTHER] IV SCH ×2 (21:00)
[2016-09-25] MEDS ORDERED: NS IV SCH ×2 (21:00)
[2016-09-25] MEDS ORDERED: IMIPENEM IV SCH ×2 (21:00)
[2016-09-25] MEDS: REMOVE OLD NICODERM (NICOTINE) PATCH T-DERMAL SCH (21:00)
[2016-09-26] MEDS: RESP: ALBUTEROL 2.5 MG/IPRATROPIUM 0.5 MG NEB (SCH) NEB ×6 (01:10→21:45)
[2016-09-26] MEDS: IMIPENEM IV SCH ×8 (02:26→22:01)
[2016-09-26] MEDS: [UNRECOGNIZED DRUG - OTHER] IV SCH ×8 (02:26→22:01)
[2016-09-26] MEDS: NS IV SCH ×8 (02:26→22:01)
[2016-09-26 05:48] VITALS: BP 117/67; PULSE 107; RESP 17; TEMP 99; O2SAT 96
[2016-09-26 08:23] LABS: ANION GAP 11 MEQ/L (5-15); BICARBONATE 25.3 MEQ/L (21.0-32.0); BLOOD UREA NITROGEN 8 MG/DL (7-18); CHLORIDE 107 MEQ/L (98-107); GLOMERULAR FILTRATION RATE 166 ML/MIN (>89); POTASSIUM 3.1 MEQ/L (3.5-5.1); SODIUM (NA) 143 MEQ/L (136-145)
[2016-09-26 08:24] LABS: HDL CHOLESTEROL 28.8 MG/DL (40.0-60.0); LDL CHOLESTEROL 78 MG/DL (0-99)
[2016-09-26] MEDS: NICOTINE 21 MG/24 HR PATCH T-DERMAL SCH (09:00)
--- NOTE | 2016-09-26 11:50 | HHI.HP ---
Provisional Diagnosis Admission Date Sep 25, 2016 at 14:46 Dunlap I. Adjustment disorder with depressed mood, rule out major depressive disorder Dunlap II. deferred Dunlap III. Pneumonia, cardiomyopathy Dunlap IV. family discord, recent suicide attempt Dunlap V. 35 Certification of Person's Competence To Provide Express and Informed Consent I have personally examined Don Mcgill , a person being served at [facility] on, Sep 26, 2016 10:54. Express and informed consent means consent voluntarily given in writing, by a competent person, after sufficient explanation and disclosure of the subject matter involved to enable the person to make a knowing and willful decision without any element of force, fraud, deceit, duress, or other form of constraint or coercion. This person is 18 years of age or older, is not now known to be incompetent to consent to treatment with a guardian advocate, and does not have a health care surrogate or proxy currently making medical treatment decisions. I have found this person to be one of the following: [] Competent to provide express and informed consent, as defined above, for voluntary admission to this facility and is competent to provide express and informed consent for treatment. He/she has the consistent capacity to make well reasoned, willful, and knowing decisions concerning his or her medical or mental health treatment. The person fully and consistently understands the purpose of the admission for examination/placement and is fully capable of personally exercising all rights assured [place] Incompetent to provide express and informed consent to voluntary admission, and this is incompetent to provide express and informed consent to treatment. The person must be transferred to involuntary status and a petition for a guardian advocate filed with the Circuit Court. [x] Refusing to provide express and informed consent to voluntary admission but is competent to provide express and informed consent for treatment. The person must be discharged or transferred to involuntary status. Form shall be completed within 24 hours of a person's arrival at the receiving facility and filed in the clinical record of each person: 1. Admitted on a voluntary basis 2. Permitted to provide express and informed consent to his/her own treatment 3. Allowed to transfer from involuntary to voluntary status 4. Prior to permitting a person to consent to his or her own treatment after having been previously found incompetent to consent to treatment. History of Present Illness Capacity: Has Capacity (for treatment) HPI Patient is a 42-year-old woman, , with 4 kids, living with , unemployed with a past psychiatric history of depression, no psychiatric hospitalizations, no ReVia suicide attempts, no outpatient mental health provider at this time, was brought in by EMS on 09/18/16 for altered mental status, likely overdose of Robaxin and Klonopin. Patient was admitted to ICU intubated for respiratory failure (extubated on 09/23/16), pneumonia, metabolic acidosis, and evaluate by cardiology for much valve regurg. Patient was subsequently discharged on 09/25/16 to medical/psychiatry unit for further evaluation and management of apparent suicide attempt via overdose. As per Dr. William note, Per chart documentation the patient had most likely intentional overdose of Robaxin as well as possible overdose of Klonopin. Apparently this is the birthday of her mother . The patient on arrival was a GCS of 3, and was intubated by ED attending for an airway protection. Patient was admitted in the ICU with respiratory failure, pneumonia , metabolic acidosis, she is being evaluated by cardiology due to Mitral valve vegetation. Psychotic evaluation today patient poorly cooperative, very sedated , difficult to arouse and engage in a conversation. However, patient says that he overdosed with the intention to "because he was my mother's birthday, but also had an argument with my doesn't love me". Patient says that she has been very depressed, many things in her life have been down that hill, she has been facing multiple arguments with her and for this reason her depression has been worsening. Patient clarifies that she overdosed with the intention to kill herself. As per medical discharge summary, metabolic acidosis resolved, continue follow up for hypernatremia, potassium replaced for hypokalemia, cardiology continues to follow patient for cardiomyopathy and mitral valve regurgitation, patient continued on antibiotic treatment for probable aspiration pneumonia and sepsis and followed by infectious disease service. As per cardiology follow-up: Patient had TTE done which noted no vegetation but with LVEF noted to be 30%. Patient started on low-dose Coreg for new cardiomyopathy. Patient will require follow-up ischemic evaluation when stable. As per Infectious disease follow-up: Patient currently with UTI, pneumonia due to ESBL Escherichia coli, still with bilateral lung infiltrates on chest x-ray. Patient to continue imipenem. OT eval: Recommendations are that patient will benefit from occupational therapy in acute care and recommended for rehabilitation placement. PT eval: Physical therapy 3-5 times per week, Thursday through Thursday for the length of stay. Imaging: CT brain negative EKG 09/19/16: QT prolongation resolved Patient seen with nurse, chart reviewed. As per nursing report patient has been pleasant and overnight attempted to remove the Weinberg catheter, slept well. Patient states that prior to coming to the emergency department she had spoke to her son-in-law who had told her that his children will be taken into foster care. She reports having called her daughter to report the news and felt that her daughter didn't care. Patient reports that her was also very upset and felt that he wasn't supposed to happen. Patient reports having felt very overwhelmed as well as felt that she wanted to "get back at her daughter" and states that she had taken her remaining medications and remembers thinking "screw you all". Patient states that she had expected to "join my mother" as she recalls says recently been the anniversary of the of her mother. Patient states that prior to this incident she denies any depressive symptoms reporting having been sleeping well and good appetite, good energy, concentration, mood having been "good" and denies feeling sad or depressed. She states that these have been going well and she didn't have a happy relation with her despite ED note stating that she been having relationship discord with her . Patient recalls having been visited by her older daughter and having an feeling guilty for having done this. She states that she feels "awful" about having attempted to end her life. She mentioned that now she feels that she wants to live to be a better mother feels that she let everyone down. Patient states that she's feeling "good" denies having any suicidal ideations at this time and assess if she could be discharged to go home. Patient was reminded of the seriousness of her actions and that she would require further monitoring and management at this time which she reluctantly agreed to. Past psychiatric history: As per chart history of depression, denies any previous psychiatric hospitalizations, denies any previous suicide attempts, denies any outpatient mental health provider services, no previous medication trials aside from clonazepam 0.5 mg daily prescribed by her primary care doctor. Patient denies any history of sexual physical abuse. Family psychiatric history: Denies, denies any suicides in the family. Substance use history: Reports tobacco use one pack per day, occasional alcohol use, reports remote history of cocaine use during her 20s. She states also that she used marijuana years ago but occasionally smoke marijuana with her . Social history: , has 2 adult daughters, currently living with , unemployed. Patient was born and raised in [place], highest education is 11th grade. She denies having any firearms in the home. Baptism Sabianist. Review of Systems Except as stated in HPI: all other systems reviewed are Neg Past Psych History Psychological trauma history Denies any trauma history Violence risk - others (6 mos) Low Violence risk - self (6 mos) High Substance Abuse History Drugs/Alcohol past 12 months Tobacco use, 1 pack per day, occasional alcohol use and occasional marijuana use , remote history of cocaine use. Past Family Social History Coded Allergies: *MDRO Multi-Drug Resistant Organism (Verified Adverse Reaction, Unknown, ESBL, 09/24/16) ESBL (urine) - 09/20/16, ESBL-Ecoli- ([facility]) 09/20/16 Active Scripts Imipenem-Cilastatin Inj (Primaxin Inj)500-500 mg [id number] Mg IV Q6H 10 Days Ref 0 Prov:Michele Courtney MD 09/25/16 Ipratropium-Albuterol Neb (Duoneb)0.5-2.5 Mg/3 Ml Neb1 Ampule NEB Q4HR NEB 30 Days Prov:Michele Courtney MD 09/25/16 Albuterol Neb 2.5 Mg/3 Ml Neb2.5 Mg INH Q2HR NEB PRN (SOB/WHEEZING) 28 Days Prov:Michele Courtney MD 09/25/16 Acetylcysteine Liq/Neb 100 mg/ml Soln2 Ml NEB Q8HR NEB 30 Days Prov:Michele Courtney MD 09/25/16 Reported Medications Methocarbamol 500 Mg [id number] Mg PO TID #90 TAB Ref 0 09/18/16 Current Medications Medications (Trade) Dose Ordered Sig/Nisreen Route Start Time Stop Time Status Last Admin (Ativan) 1 mg Q6H PRN PO 09/25/16 18:00 (Ativan Inj) 1 mg Q6H PRN IM 09/25/16 18:00 (Tylenol) 650 mg Q4H PRN PO 09/25/16 18:00 09/25/16 20:30 (Milk Of Magnesia Liq) 30 ml DAILY PRN PO 09/25/16 18:00 (Mag-Al Plus Susp Liq) 30 ml Q6H PRN PO 09/25/16 18:00 (Habitrol 21 Mg Patch.24 Hr) 1 patch DAILY T-DERMAL 09/25/16 18:00 Miscellaneous Information 1 1 HS T-DERMAL 09/25/16 21:00 (Primaxin Inj/NS Inj) 100 ml @ 200 mls/hr Q6H IV 09/25/16 20:00 09/26/16 08:30 Family History Denies Social History , has 2 adult daughters, living with , unemployed. Born and raised in [place], highest education is 11th grade, sikh: Sabianist. Patient's Strengths (min. 2) Verbal, communicative Physical Exam Patient upon exam had no noted gross motor abnormalities, no EPS, Vital Signs Vital Signs Date Time Temp Pulse Resp B/P Pulse Ox O2 Delivery O2 Flow Rate FiO2 09/26/16 05:48 99.0 107 17 117/67 96 I/O 09/25/16 09/25/16 09/26/16 08:00 16:00 00:00 Intake Total 480 ml Balance 480 ml Mental Status Examination Appearance Patient appears older than stated age, thin habitus, in hospital gown, fair hygiene, fair grooming, calm and cooperative in interview, fair eye contact. Speech: Unremarkable Orientation: Person, Place, Situation Memory: Unremarkable Thought Process: Organized, Linear Thought Content: Unremarkable Language Fluent and spontaneous Fund of Knowledge Fair Hallucination Type: None Attention and Concentration: Good Suicidal Ideation: No (denies at time of interview) Previous Suicide Attempts: Yes (recent suicide attempt via overdose) Homicidal Ideation: No Previous Homicide Attempts: No Insight: Poor (limited) Judgment: Poor ( ) Affect: Other (Appears happy despite recent suicde attempt) Mood: Euthymic, Anxious Assessment & Plan Problem List: (1) Adjustment disorder with depressed mood ICD Code: F43.21 Assessment & Plan Estimated LOS: 5-7 days. Patient is a 42-year-old woman, , with 4 kids, living with , unemployed with a past psychiatric history of depression, no psychiatric hospitalizations, no ReVia suicide attempts, no outpatient mental health provider at this time, was brought in by EMS on for altered mental status, likely overdose of Robaxin and Klonopin. Patient was admitted to ICU intubated for respiratory failure (extubated on 09/23/16), pneumonia, metabolic acidosis, and evaluate by cardiology for much valve regurg. Patient was subsequently discharged on 09/25/16 to medical/psychiatry unit for further evaluation and management of apparent suicide attempt via overdose. Patient at this time denies any depressive symptoms but does state that her recent suicide attempt was a result after hearing the news of her grandchildren being taken to foster care and the anniversary of her mother's passing. Patient denies any psychosocial stressors or changes in mood prior to this news and see appears to have limited insight into her reaction to this news which resulted in an almost lethal overdose in a suicide attempt. Patient states feeling well and appears a minimizing the psychosocial aspects of her life that contributed her to have made a suicide attempt. Patient at this time or place for involuntary admission for safety and for psychiatric stabilization. Patient will be started on Wellbutrin 100 mg by mouth twice a day with upward titration as needed. Monitor for medication response and possible adverse drug reactions. Brief supportive psychotherapy provided. Patient to continue recommendations as per primary medical team. Collateral pending. Discharge planning and process Discharge Planning In process Request HC Surrog/Guard Advoc?: Schuyler Baird MD Sep 26, 2016 11:50
--- NOTE | 2016-09-26 13:11 | HHI.IDPN ---
Note Infectious Disease Note Asked to see patient aftre she was transferred to this unit. Patient is known to me. Diagnosed with pneumonia and UTI with ESBL e. coli. She was admitted after suicide attempt. Notes that she had profuse sweats this am. Feels okay now. No cough or SOB. Afebrile. WBC has been normal. ANTIBIOTICS: Imipenem day 5. OBJECTIVE: Vital Signs Date Time Temp Pulse Resp B/P Pulse Ox O2 Delivery O2 Flow Rate FiO2 09/26/16 05:48 99.0 107 17 117/67 96 09/25/16 18:06 98.1 92 18 119/70 97 09/25/16 14:54 99.1 97 16 116/66 96 Laboratory Tests Test 09/26/16 07:47 Sodium Level 143 MEQ/L Potassium Level 3.1 MEQ/L Chloride Level 107 MEQ/L Carbon Dioxide Level 25.3 MEQ/L Anion Gap 11 MEQ/L Blood Urea Nitrogen 8 MG/DL Creatinine 0.41 MG/DL Estimat Glomerular Filtration 166 ML/MIN Rate Random Glucose 101 MG/DL Calcium Level 7.9 MG/DL Triglycerides Level 122 MG/DL Cholesterol Level 131 MG/DL LDL Cholesterol 78 MG/DL HDL Cholesterol 28.8 MG/DL Cholesterol/HDL Ratio 4.54 RATIO IMAGING: Chest X-Ray 09/25/16 0600 Signed Impressions: Service Date/Time: September 05:09 - CONCLUSION: 1. Interval extubation and removal of nasogastric tube. 2. Hazy alveolar opacity remains in the infrahilar regions and both lung bases. Beny Serra MD PHYSICAL EXAMINATION GENERAL: No acute distress. Awake and alert. HEENT: EOMI, RAND. No icterus. NECK: Supple. No swelling or adenopathy. LUNGS: Slight rhonchi at the left base. HEART: Regular rate and rhythm. No audible murmurs or rubs or gallops. ABDOMEN: Nontender. Soft. (+) bowel sounds. EXTREMITIES: No clubbing or cyanosis, edema. SKIN: No rash. NEUROLOGIC: Non focal. PSYCH: Calm, Good mood. Pleasant. IMPRESSION 1. ESBL E-coli. UTI. 2. Pneumonia due to ESBL e. coli. 3. Leukocytosis secondary to infection. Improved. 4. Acute respiratory failure, possibly aspiration as well following intubation with infiltrate having developed after intubation. 5. Bacteremia coag neg staph. Most likely contaminant. RECOMMENDATIONS 1. Continue imipenem to cover ESBL pneumonia/ E coli in the urine treatment for 5 more days. 2. Monitor clinical response. 3. Monitor temps. 4. Follow the repeat blood cultures until complete. Ward Quintero MD Sep 26, 2016 13:11
--- NOTE | 2016-09-26 15:44 | PD.CONS ---
HPI Service [facility] Hospitalists Consult Requested By Psychiatric services Reason for Consult Medical management Primary Care Physician Unknown Diagnoses: History of Present Illness Written by Lauren Koroma PA-C acting as scribe for Dr. Clements on 09/26/16 at 15 :40. This is a 50-year-old female with past medical history significant for COPD who was brought into the hospital by EMS on 09/18/16 for altered mental status due to overdose of Robaxin and Klonopin. Patient was admitted to the ICU and intubated for respiratory failure, pneumonia and metabolic acidosis. She was evaluated by cardiology due to a mitral valve vegetation that was seen on echocardiogram follow-up ALIA negative. She was found to have cardiomyopathy, mitral valve regurgitation and systolic dysfunction with EF of 30% patient was started on low-dose Coreg. She was later extubated on 09/23/16. She was seen by infectious disease for urinary tract infection and pneumonia due to ESBL Escherichia coli and has been treated with Imipenem. Patient was subsequently discharged on 09/25/16 to the medical/psychiatric unit for further evaluation and management of her suicide attempt via overdose. Hospitalist services have been consulted for ongoing medical management. Patient seen and examined today. Patient reports she feels a little tired but otherwise has no complaints. She denies any fever or chills. She denies any nausea vomiting or abdominal pain. She denies any chest pain or shortness of breath. She denies any diarrhea or constipation. She denies any urinary complaints. Review of Systems Except as stated in HPI: all other systems reviewed are Neg Past Family Social History Allergies: Coded Allergies: *MDRO Multi-Drug Resistant Organism (Verified Adverse Reaction, Unknown, ESBL, 09/24/16) ESBL (urine) - 09/20/16, ESBL-Ecoli- ([facility]) 09/20/16 Past Medical History COPD Past Surgical History Hysterectomy 1988 Removal of "tumor" from abdomen Reported Medications Imipenem-Cilastatin Inj (Primaxin Inj)500-500 mg [id number] Mg IV Q6H 10 Days Ref 0 Prov:Michele Courtney MD 09/25/16 Ipratropium-Albuterol Neb (Duoneb)0.5-2.5 Mg/3 Ml Neb1 Ampule NEB Q4HR NEB 30 Days Prov:Michele Courtney MD 09/25/16 Albuterol Neb 2.5 Mg/3 Ml Neb2.5 Mg INH Q2HR NEB PRN (SOB/WHEEZING) 28 Days Prov:Michele Courtney MD 09/25/16 Acetylcysteine Liq/Neb 100 mg/ml Soln2 Ml NEB Q8HR NEB 30 Days Prov:Michele Courtney MD 09/25/16 Methocarbamol 500 Mg [id number] Mg PO TID #90 TAB Ref 0 09/18/16 Active Ordered Medications Current Medications Medications (Trade) Dose Ordered Sig/Nisreen Route Start Time Stop Time Status Last Admin (Ativan) 1 mg Q6H PRN PO 09/25/16 18:00 (Ativan Inj) 1 mg Q6H PRN IM 09/25/16 18:00 (Tylenol) 650 mg Q4H PRN PO 09/25/16 18:00 09/25/16 20:30 (Milk Of Magnesia Liq) 30 ml DAILY PRN PO 09/25/16 18:00 (Mag-Al Plus Susp Liq) 30 ml Q6H PRN PO 09/25/16 18:00 (Habitrol 21 Mg Patch.24 Hr) 1 patch DAILY T-DERMAL 09/25/16 18:00 Miscellaneous Information 1 1 HS T-DERMAL 09/25/16 21:00 (Primaxin Inj/NS Inj) 100 ml @ 200 mls/hr Q6H IV 09/25/16 20:00 09/26/16 14:00 Family History Father, alcoholic, brain cancer, Mother, COPD, age 86 natural causes Social History Patient is to tobacco use of one pack per day since the age of 15. She reports rare alcohol consumption. She denies any illicit drug use. Physical Exam Vital Signs Vital Signs Date Time Temp Pulse Resp B/P Pulse Ox O2 Delivery O2 Flow Rate FiO2 09/26/16 05:48 99.0 107 17 117/67 96 09/25/16 18:06 98.1 92 18 119/70 97 Physical Exam GENERAL: This is a well-nourished, well-developed patient, in no apparent distress. Awake and alert. SKIN: No rashes, ecchymoses or lesions. Cool and dry. HEAD: Atraumatic. Normocephalic. No temporal or scalp tenderness. EYES: Pupils equal round and reactive. Extraocular motions intact. No scleral icterus. No injection or drainage. ENT: Nose without bleeding, purulent drainage. Throat without erythema, tonsillar hypertrophy or exudate. Uvula midline. Airway patent. NECK: Trachea midline. No lymphadenopathy. Supple, nontender, no meningeal signs. CARDIOVASCULAR: Regular rate and rhythm without murmurs, gallops, or rubs. RESPIRATORY: Decreased breath sounds noted. Clear to auscultation. Breath sounds equal bilaterally. No wheezes, rales, or rhonchi. GASTROINTESTINAL: Abdomen soft, non-tender, nondistended. No hepato-splenomegaly , or palpable masses. No guarding. MUSCULOSKELETAL: Extremities without clubbing, cyanosis, or edema. No joint tenderness, effusion, or edema noted. No calf tenderness. NEUROLOGICAL: Awake and alert. Able to move all extremities. Normal speech. Laboratory Laboratory Tests Test 09/26/16 07:47 Sodium Level 143 Potassium Level 3.1 Chloride Level 107 Carbon Dioxide Level 25.3 Anion Gap 11 Blood Urea Nitrogen 8 Creatinine 0.41 Estimat Glomerular Filtration 166 Rate Random Glucose 101 Calcium Level 7.9 Triglycerides Level 122 Cholesterol Level 131 LDL Cholesterol 78 HDL Cholesterol 28.8 Cholesterol/HDL Ratio 4.54 Result Diagram: 09/26/16 0747 Assessment and Plan Assessment and Plan 50-year-old female with past medical history significant for COPD who was brought into the hospital by EMS on 09/18/16 for altered mental status due to overdose of Robaxin and Klonopin. Depression Suicide attempt via overdose Management per psychiatric team QT prolongation which has resolved Pneumonia and UTI with ESBL Escherichia coli Klebsiella pneumonia Likely aspiration pneumonia Recent acute respiratory failure requiring intubation Gram-positive bacteremia Infectious disease following 09/20/16 bronchial washings positive for Escherichia coli ESBL and Klebsiella Continue IV Imipenem per ID recommendations for another 5 days Follow-up on repeat blood cultures - currently no growth 1 day COPD, currently not in acute exacerbation Ongoing tobaccoism Continue duo nebs scheduled Discussed smoking cessation Systolic dysfunction with EF of 30% Cardiomyopathy Mitral valve regurgitation Patient to follow-up with cardiology as an outpatient. She will need an ischemic workup. Continue on low-dose Coreg. Monitor for signs of fluid overload Hypokalemia Repletion ordered Repeat potassium level in a.m. Anemia, normochromic normocytic Trending up Monitor DVT prophylaxis Patient is ambulatory Thank you very kindly for this consultation. We will continue to follow along with you. This note was transcribed by bruna Koroma PA-C. I, Dr. July Clements personally performed the history, physical exam, and medical decision making; and confirmed the accuracy of the information in the transcribed note. Authenticated by Dr. July Clements on 09/26/16 at 15:40. Discussed Condition With Patient and nursing staff Lauren Koroma Sep 26, 2016 15:44 July Clements MD Sep 26, 2016 16:27
[2016-09-26 16:02] LABS: HEMOGLOBIN A1b 0.8 %; HEMOGLOBIN Ao 85.5 %; HEMOGLOBIN F 1.2 %; HEMOGLOBIN LA1C 2.1 %; HEMOGLOBIN P3 3.6 %
[2016-09-26] MEDS ORDERED: POTASSIUM CHLORIDE 10 MEQ CONTROLLED RELEASE TAB PO ONE (17:45)
[2016-09-26] MEDS: ALUMINUM/MAGNESIUM/SIMETH 30 ML CUP PO PRN (17:52)
[2016-09-26 18:49] VITALS: BP 111/66; PULSE 96; RESP 16; TEMP 98.5; O2SAT 98
[2016-09-26] MEDS: REMOVE OLD NICODERM (NICOTINE) PATCH T-DERMAL SCH (21:00)
[2016-09-27] MEDS: RESP: ALBUTEROL 2.5 MG/IPRATROPIUM 0.5 MG NEB (SCH) NEB ×6 (00:50→20:33)
[2016-09-27] MEDS: IMIPENEM IV SCH ×8 (02:25→20:00)
[2016-09-27] MEDS: NS IV SCH ×8 (02:25→20:00)
[2016-09-27] MEDS: [UNRECOGNIZED DRUG - OTHER] IV SCH ×8 (02:25→20:00)
[2016-09-27 06:03] VITALS: BP 110/59; PULSE 92; RESP 16; TEMP 99.4; O2SAT 95
[2016-09-27] MEDS: NICOTINE 21 MG/24 HR PATCH T-DERMAL SCH (09:00)
--- NOTE | 2016-09-27 09:08 | HHI.PR ---
Subjective Remarks In bed, says she has no fever or chills. Urine is yellow. No urinary complaints. Appetite is improving. Eating fairly well. No sob, n/v/d/c. No pain. Objective Vitals Vital Signs Date Time Temp Pulse Resp B/P Pulse Ox O2 Delivery O2 Flow Rate FiO2 09/27/16 06:03 99.4 92 16 110/59 95 09/26/16 18:49 98.5 96 16 111/66 98 I/O 09/26/16 09/26/16 09/26/16 09/27/16 09/27/16 09/27/16 06:59 14:59 22:59 06:59 14:59 22:59 Intake Total 240 ml 480 ml 240 ml 480 ml Balance 240 ml 480 ml 240 ml 480 ml Intake Oral 240 ml 480 ml 240 ml 480 ml # Voids 3 1 2 Result Diagram: 09/26/16 0747 Objective Remarks GENERAL: This is a well-nourished, well-developed patient, in no apparent distress. Awake and alert. CARDIOVASCULAR: Regular rate and rhythm without murmurs, gallops, or rubs. RESPIRATORY: Decreased breath sounds noted. Clear to auscultation. Breath sounds equal bilaterally. No wheezes, rales, or rhonchi. GASTROINTESTINAL: Abdomen soft, non-tender, nondistended. No hepato-splenomegaly , or palpable masses. No guarding. MUSCULOSKELETAL: Extremities without clubbing, cyanosis, or edema. No joint tenderness, effusion, or edema noted. No calf tenderness. NEUROLOGICAL: Awake and alert. Able to move all extremities. Normal speech. A/P Assessment and Plan 50-year-old female with past medical history significant for COPD who was brought into the hospital by EMS on 09/18/16 for altered mental status due to overdose of Robaxin and Klonopin. Depression Suicide attempt via overdose Management per psychiatric team QT prolongation which has resolved Pneumonia and UTI with ESBL Escherichia coli Klebsiella pneumonia Likely aspiration pneumonia Recent acute respiratory failure requiring intubation Gram-positive bacteremia Infectious disease following 09/20/16 bronchial washings positive for Escherichia coli ESBL and Klebsiella Continue IV Imipenem per ID recommendations for another 5 days Follow-up on repeat blood cultures - currently no growth 1 day COPD, currently not in acute exacerbation Ongoing tobaccoism Continue duo nebs scheduled Discussed smoking cessation Systolic dysfunction with EF of 30% Cardiomyopathy Mitral valve regurgitation Patient to follow-up with cardiology as an outpatient. She will need an ischemic workup. Continue on low-dose Coreg. Monitor for signs of fluid overload Hypokalemia Repletion ordered Repeat potassium level in a.m. Anemia, normochromic normocytic Trending up Monitor DVT prophylaxis Patient is ambulatory Thank you for this consultation. We will continue to follow along with you. Discussed with the patient, nurse July Clements MD Sep 27, 2016 09:08
[2016-09-27] MEDS: buPROPion HCL 100 MG SUSTAINED RELEASE TAB PO SCH ×2 (09:51→16:44)
--- NOTE | 2016-09-27 09:59 | MB ---
cc: CHANDRA CONRAD DATE OF CONSULTATION: 09/26/2016 REQUESTING PHYSICIAN: Schuyler Sherman MD. REASON FOR CONSULTATION: Second opinion for involuntary psychiatric hospitalization. HISTORY OF PRESENT ILLNESS Ms. Mcgill is a 50-year-old female with no reported past psychiatric history who presented initially to the emergency department on September 18 with altered mental status. There was concern for Robaxin and possible Klonopin overdose at that time. Her urine toxicology was positive only for cannabinoids. The patient was seen on the medical floor by Dr. Villasenor and subsequently transferred to the inpatient psychiatric unit where she has come under the care of Dr. Sherman. Reviewing the electronic medical record, I see that there is no prior contact within our system before her initial admission to the medical unit. The patient seen and examined with nurse. Chart reviewed. Case discussed with nursing staff. No behavioral issues overnight. Dr. Sherman's documentation reviewed. On my examination today, the patient reports my multiple psychosocial stressors prior to her admission here in the greatest of which was her daughter losing her children to [facility] in [place]. She is very upset about her daughter's conduct and says that she made an impulsive suicidal overdose on Klonopin and Robaxin as a result. She is happy to have survived her overdose and denies suicidal ideation at this time. She denies any particular issues with low mood or elevated mood, nor can I elicit any depressive or hypomanic / manic symptoms at this time. She denies any audiovisual hallucinations and I can elicit no delusional material. She denies any homicidal ideation. The remainder of psychiatric ROS is negative. The patient is hopeful for discharge from the inpatient psychiatric unit soon. PAST PSYCHIATRIC HISTORY The patient denies a history of psychiatric diagnosis. She denies a history of inpatient or outpatient psychiatric treatment. She denies a history of suicide attempts. FAMILY HISTORY The patient denies family history of mental illness. CHEMICAL DEPENDENCY HISTORY: The patient denies any abuse of drugs or alcohol. SOCIAL HISTORY The patient reports that she is . She does not work outside the home. She is a [employer]. PAST MEDICAL HISTORY Current medical issue is ESBL UTI as well as pneumonia. See electronic medical record. REVIEW OF SYSTEMS No reported headache, vision or hearing changes, chest pain, shortness of breath, bowel or bladder issues. No other physical complaints. PHYSICAL EXAMINATION VITAL SIGNS: Temperature 99.4, pulse 92, respirations 16, blood pressure 110/59, pulse oximetry 95% on room air. Physical examination completed by the hospitalist field consultant. On my examination today, the patient appears to be in no acute physical distress. No motoric abnormalities appreciated. LABORATORY Reviewed: His CBC from the medical floor revealed mild normocytic anemia at 10.7. Basic metabolic profile on the inpatient psychiatric unit reveals hypokalemia with potassium of 3.1, although this has been repleted by the hospitalist. The patients toxicological findings were as noted above. MENTAL STATUS EXAM The patient is in hospital gown. She is well-groomed. She is awake, alert and oriented x3. No evidence of delirium. No motoric abnormalities appreciated. Speech is within normal limits for rate, tone and volume. Language and fund of knowledge average. Focus and concentration intact. Memory grossly intact on clinical exam. Mood "I am good." Affect fairly full and reactive. Thought process linear. No loosening of associations. No delusional material. Denies audiovisual hallucinations. Denies suicidal or homicidal ideation, intent or plan. Insight and judgment seem somewhat poor. ASSESSMENT/PLAN Adjustment disorder with depressed mood, F 43.21 This is a 50-year-old female with psychiatric history as detailed above who is presently admitted to the inpatient psychiatric unit following a Klonopin, Robaxin overdose. I have been consulted to assess for appropriateness for involuntary inpatient psychiatric hospitalization. The patient is presently declining voluntary psychiatric hospitalization. Given the circumstances of her presentation here and her presentation on my examination today, I concur with Dr. Sherman that the patient meets criteria for involuntary psychiatric hospitalization under the Lopez ACT and completed the for the second opinion paperwork. This note serves also is my progress note for the day. I note that Dr. Sherman plans to start the patient on Wellbutrin 100 mg twice daily and I have ordered this. No known seizure or eating disorder history. I appreciate the hospitalist input. Continue other medications and care as ordered. Continue to monitor on the inpatient unit. I will plan to follow up tomorrow. Thank you very much for this consultation. Chandra Conrad DC/bryan /8:54 AM /9:43 AM [email or web address]
[2016-09-27 13:48] LABS: BICARBONATE 24.9 MEQ/L (21.0-32.0); POTASSIUM 3.3 MEQ/L (3.5-5.1)
[2016-09-27 18:48] VITALS: BP 104/52; PULSE 72; RESP 17; TEMP 98.1
[2016-09-27] MEDS: REMOVE OLD NICODERM (NICOTINE) PATCH T-DERMAL SCH (20:24)
[2016-09-27] MEDS: LORazepam 1 MG TAB PO PRN (20:48)
[2016-09-28] MEDS: RESP: ALBUTEROL 2.5 MG/IPRATROPIUM 0.5 MG NEB (SCH) NEB ×6 (00:57→20:29)
[2016-09-28] MEDS: [UNRECOGNIZED DRUG - OTHER] IV SCH ×6 (01:33→14:00)
[2016-09-28] MEDS: IMIPENEM IV SCH ×6 (01:33→14:00)
[2016-09-28] MEDS: NS IV SCH ×6 (01:33→14:00)
[2016-09-28 05:21] VITALS: BP 107/50; PULSE 72; RESP 20; TEMP 98.4; O2SAT 100
[2016-09-28] MEDS: NICOTINE 21 MG/24 HR PATCH T-DERMAL SCH (08:37)
[2016-09-28] MEDS: buPROPion HCL 100 MG SUSTAINED RELEASE TAB PO SCH ×2 (08:37→15:45)
--- NOTE | 2016-09-28 10:58 | HHI.PYPN ---
Subjective Remarks Patient seen and examined with nurse. Chart reviewed. Case discussed with nursing staff. No behavioral issues noted. On my examination today, the patient is in good spirits. She denies any SI, HI or AVH. Hopeful for discharge soon. Started on Wellbutrin yesterday. Denies side effects from medications. No physical complaints. Review of Systems Except as stated in HPI: all other systems reviewed are Neg Objective Alert: Yes [place]: Person, Place, Date, Situation Mood: Calm Affect: Euthymic Memory Intact: Comment (intact) Hallucinations: Other (no hallucinations) Delusions: No Delusion Type: Other (none elicited) Suicidal: Ideation (denies SI) Homicidal: Ideation (denies HI) Insight/Judgment Fair Remarks No motor abnormalities noted. Thought process linear. Labs Test 09/27/16 12:52 Sodium Level 140 MEQ/L Potassium Level 3.3 MEQ/L Chloride Level 107 MEQ/L Carbon Dioxide Level 24.9 MEQ/L Anion Gap 8 MEQ/L Blood Urea Nitrogen 11 MG/DL Creatinine 0.44 MG/DL Estimat Glomerular Filtration 153 ML/MIN Rate Random Glucose 136 MG/DL Calcium Level 8.1 MG/DL Labs reviewed. Laboratories ordered by the hospitalist for this morning are in process. Vitals/IOs Vital Signs Date Time Temp Pulse Resp B/P Pulse Ox O2 Delivery O2 Flow Rate FiO2 09/28/16 05:21 98.4 72 20 107/50 100 Intake and Output 09/27/16 09/27/16 09/27/16 07:59 15:59 23:59 Intake Total 460 ml 960 ml 1680 ml Balance 460 ml 960 ml 1680 ml Assessment & Plan Problem List: (1) Adjustment disorder with depressed mood ICD Code: F43.21 Assessment & Plan Continue current psychotropics as ordered. Continue to monitor on the medical psychiatric unit. Appreciate hospitalist input. Continue other medications and care as ordered. Justification for Cont. Inpt. Risk for decompensation Discharge Planning Pending stabilization Request HC Surrog/Guard Advoc?: No Lamont Conrad MD Sep 28, 2016 10:58
[2016-09-28] MEDS ORDERED: POTASSIUM CHLORIDE 10 MEQ CONTROLLED RELEASE TAB PO ONE (13:00)
[2016-09-28 15:15] LABS: AUTOMATED NEUTROPHIL # 5.9 TH/MM3 (1.8-7.7); BASOPHIL # 0.1 TH/MM3 (0-0.2); BASOPHIL % 0.7 % (0.0-2.0); EOSINOPHIL # 0.4 TH/MM3 (0-0.4); EOSINOPHIL % 4.2 % (0.0-4.0); HEMATOCRIT 34.4 % (35.0-46.0); HEMO FLAGS DIFF FINAL; LYMPH % 25.8 % (9.0-44.0); LYMPHOCYTE # 2.7 TH/MM3 (1.0-4.8); MEAN CELL VOLUME 88.6 FL (80.0-100.0); MEAN CORPUSCULAR HGB CONC 32.7 % (32.0-36.0); MONO % 12.4 % (0.0-8.0); NEUT % 56.9 % (16.0-70.0); PLATELET COUNT 468 TH/MM3 (150-450); RED BLOOD COUNT 3.89 MIL/MM3 (4.00-5.30); RED CELL DISTRIBUTION WIDTH 13.1 % (11.6-17.2); WHITE BLOOD COUNT 10.4 TH/MM3 (4.0-11.0)
[2016-09-28 15:32] LABS: POTASSIUM 3.8 MEQ/L (3.5-5.1)
--- NOTE | 2016-09-28 16:11 | HHI.PR ---
Subjective Remarks Says shas no fevr for the past 3 days. Feels improving. No n/v/d/c. Eating better/ No abdominal pain. Objective Vitals Vital Signs Date Time Temp Pulse Resp B/P Pulse Ox O2 Delivery O2 Flow Rate FiO2 09/28/16 05:21 98.4 72 20 107/50 100 09/27/16 18:48 98.1 72 17 104/52 I/O 09/27/16 09/27/16 09/27/16 09/28/16 09/28/16 09/28/16 07:00 15:00 23:00 07:00 15:00 23:00 Intake Total 700 ml 960 ml 1680 ml 820 ml 1550 ml Balance 700 ml 960 ml 1680 ml 820 ml 1550 ml Intake Oral 480 ml 960 ml 1680 ml 600 ml 1440 ml IV Total 220 ml 220 ml 110 ml # Voids 2 2 0 2 Result Diagram: 09/28/16 1434 09/28/16 1434 Objective Remarks GENERAL: This is a well-nourished, well-developed patient, in no apparent distress. Awake and alert. CARDIOVASCULAR: Regular rate and rhythm without murmurs, gallops, or rubs. RESPIRATORY: Decreased breath sounds noted. Clear to auscultation. Breath sounds equal bilaterally. No wheezes, rales, or rhonchi. GASTROINTESTINAL: Abdomen soft, non-tender, nondistended. No hepato-splenomegaly , or palpable masses. No guarding. MUSCULOSKELETAL: Extremities without clubbing, cyanosis, or edema. No joint tenderness, effusion, or edema noted. No calf tenderness. NEUROLOGICAL: Awake and alert. Able to move all extremities. Normal speech. A/P Assessment and Plan 50-year-old female with past medical history significant for COPD who was brought into the hospital by EMS on 09/18/16 for altered mental status due to overdose of Robaxin and Klonopin. Depression Suicide attempt via overdose Management per psychiatric team QT prolongation which has resolved Pneumonia and UTI with ESBL Escherichia coli Klebsiella pneumonia Likely aspiration pneumonia Recent acute respiratory failure requiring intubation Gram-positive bacteremia Infectious disease following 09/20/16 bronchial washings positive for Escherichia coli ESBL and Klebsiella Continue IV Imipenem per ID recommendations for another 5 days Follow-up on repeat blood cultures - currently no growth 1 day COPD, currently not in acute exacerbation Ongoing tobaccoism Continue duo nebs scheduled Discussed smoking cessation Systolic dysfunction with EF of 30% Cardiomyopathy Mitral valve regurgitation Patient to follow-up with cardiology as an outpatient. She will need an ischemic workup. Continue on low-dose Coreg. Monitor for signs of fluid overload Hypokalemia PO Repletion ordered Repeat potassium level in a.m. Monitor and replete as need Anemia, normochromic normocytic Trending up Monitor DVT prophylaxis Patient is ambulatory Thank you for this consultation. We will continue to follow along with you. Discussed with the patient, nurse July Clements MD Sep 28, 2016 16:11
[2016-09-28] MEDS: ONDANSETRON ODT 4 MG TAB PO PRN (16:26)
[2016-09-28] MEDS: LORazepam 1 MG TAB PO PRN (17:19)
[2016-09-28 18:36] VITALS: BP 111/60; PULSE 97; RESP 16; TEMP 98.2; O2SAT 98
[2016-09-28] MEDS: IMIPENEM/CILASTATIN INJ 500 MG in SODIUM CHLORIDE 0.9% INJ 100 ML IV SCH (20:00)
[2016-09-28] MEDS: REMOVE OLD NICODERM (NICOTINE) PATCH T-DERMAL SCH (21:00)
[2016-09-29] MEDS: IMIPENEM/CILASTATIN INJ 500 MG in SODIUM CHLORIDE 0.9% INJ 100 ML IV SCH ×4 (02:00→20:04)
[2016-09-29] MEDS: RESP: ALBUTEROL 2.5 MG/IPRATROPIUM 0.5 MG NEB (SCH) NEB ×5 (05:02→16:00)
[2016-09-29 06:20] VITALS: BP 109/96; PULSE 95; RESP 18; TEMP 98.7; O2SAT 96
[2016-09-29] MEDS: NICOTINE 21 MG/24 HR PATCH T-DERMAL SCH (08:04)
[2016-09-29] MEDS: buPROPion HCL 100 MG SUSTAINED RELEASE TAB PO SCH ×2 (08:04→13:59)
--- NOTE | 2016-09-29 11:22 | HHI.PR ---
Subjective Remarks In the chair, no fever or chills. No urinary complaints. No n/v/d/c. Denies cp , sob. Wants to go home. Objective Vitals Vital Signs Date Time Temp Pulse Resp B/P Pulse Ox O2 Delivery O2 Flow Rate FiO2 09/29/16 06:20 98.7 95 18 109/96 96 09/28/16 18:36 98.2 97 16 111/60 98 I/O 09/28/16 09/28/16 09/28/16 09/29/16 09/29/16 09/29/16 06:59 14:59 22:59 06:59 14:59 22:59 Intake Total 820 ml 1550 ml 1080 ml 240 ml Balance 820 ml 1550 ml 1080 ml 240 ml Intake Oral 600 ml 1440 ml 1080 ml 240 ml IV Total 220 ml 110 ml # Voids 2 3 4 Result Diagram: 09/28/16 1434 09/28/16 1434 Imaging Objective Remarks GENERAL: This is a well-nourished, well-developed patient, in no apparent distress. Awake and alert. CARDIOVASCULAR: Regular rate and rhythm without murmurs, gallops, or rubs. RESPIRATORY: Decreased breath sounds noted. Clear to auscultation. Breath sounds equal bilaterally. No wheezes, rales, or rhonchi. GASTROINTESTINAL: Abdomen soft, non-tender, nondistended. No hepato-splenomegaly , or palpable masses. No guarding. MUSCULOSKELETAL: Extremities without clubbing, cyanosis, or edema. No joint tenderness, effusion, or edema noted. No calf tenderness. NEUROLOGICAL: Awake and alert. Able to move all extremities. Normal speech. A/P Assessment and Plan 50-year-old female with past medical history significant for COPD who was brought into the hospital by EMS on 09/18/16 for altered mental status due to overdose of Robaxin and Klonopin. Depression Suicide attempt via overdose Management per psychiatric team QT prolongation which has resolved Pneumonia and UTI with ESBL Escherichia coli Klebsiella pneumonia Likely aspiration pneumonia Recent acute respiratory failure requiring intubation Gram-positive bacteremia Infectious disease following 09/20/16 bronchial washings positive for Escherichia coli ESBL and Klebsiella Continue IV Imipenem per ID recommendations for another 5 days Follow-up on repeat blood cultures - currently no growth 1 day COPD, currently not in acute exacerbation Ongoing tobaccoism Continue duo nebs scheduled Discussed smoking cessation Systolic dysfunction with EF of 30% Cardiomyopathy Mitral valve regurgitation Patient to follow-up with cardiology as an outpatient. She will need an ischemic workup. Continue on low-dose Coreg. Monitor for signs of fluid overload Hypokalemia PO Repletion ordered Repeat potassium level in a.m. Monitor and replete as need Anemia, normochromic normocytic Trending up Monitor DVT prophylaxis Patient is ambulatory Thank you for this consultation. We will continue to follow along with you. Discussed with the patient, nurse July Clements MD Sep 29, 2016 11:22
[2016-09-29 13:32] LABS: BICARBONATE 23.8 MEQ/L (21.0-32.0); POTASSIUM 3.9 MEQ/L (3.5-5.1)
[2016-09-29] MEDS: ACETAMINOPHEN 325 MG TAB PO PRN (13:58)
[2016-09-29 16:00] VITALS: BP 103/67; PULSE 89; RESP 16; TEMP 98.4; O2SAT 97
--- NOTE | 2016-09-29 16:00 | HHI.PYPN ---
Subjective Remarks Patient seen and examined with nurse. Chart reviewed. Case discussed with nursing staff. No behavioral issues noted. On my examination today, patient is in good spirits. No SI or HI. No psychotic symptoms. No side effects from medications. No physical complaints. Very anxious about Lopez act and possibility of going to [employer] [address]. Agreeable to signing voluntary. Review of Systems Except as stated in HPI: all other systems reviewed are Neg Objective Alert: Yes [place]: Person, Place, Date, Situation Mood: Calm Affect: Appropriate Memory Intact: Comment (intact) Hallucinations: Other (no AVH) Delusions: No Delusion Type: Other (no delusions) Suicidal: Ideation (no SI) Homicidal: Ideation (no HI) Insight/Judgment Fair Remarks No motor abnormalities noted Labs Test 09/29/16 11:18 Sodium Level 139 MEQ/L Potassium Level 3.9 MEQ/L Chloride Level 104 MEQ/L Carbon Dioxide Level 23.8 MEQ/L Anion Gap 11 MEQ/L Blood Urea Nitrogen 12 MG/DL Creatinine 0.54 MG/DL Estimat Glomerular Filtration 120 ML/MIN Rate Random Glucose 85 MG/DL Calcium Level 8.6 MG/DL Labs reviewed Vitals/IOs Vital Signs Date Time Temp Pulse Resp B/P Pulse Ox O2 Delivery O2 Flow Rate FiO2 09/29/16 06:20 98.7 95 18 109/96 96 Intake and Output 09/28/16 09/28/16 09/29/16 08:00 16:00 00:00 Intake Total 820 ml 1550 ml 1080 ml Balance 820 ml 1550 ml 1080 ml Assessment & Plan Problem List: (1) Adjustment disorder with depressed mood ICD Code: F43.21 Assessment & Plan Continue Wellbutrin as ordered. Ongoing hospitalist input appreciated. It appears that the patient will require several more days of IV antibiotics. Continue to monitor on the medical psychiatric unit. Patient may sign voluntary. Continue other medications and care as ordered. Justification for Cont. Inpt. Risk for decompensation Discharge Planning Per Dr. Sherman Request HC Surrog/Guard Advoc?: No Lamont Conrad MD Sep 29, 2016 16:00
[2016-09-29] MEDS: REMOVE OLD NICODERM (NICOTINE) PATCH T-DERMAL SCH (20:06)
[2016-09-29] MEDS: LORazepam 1 MG TAB PO PRN (20:09)
[2016-09-30] MEDS: IMIPENEM/CILASTATIN INJ 500 MG in SODIUM CHLORIDE 0.9% INJ 100 ML IV SCH ×4 (01:28→20:16)
[2016-09-30 05:38] VITALS: BP 105/56; PULSE 104; RESP 18; TEMP 98.6; O2SAT 98
[2016-09-30] MEDS: NICOTINE 21 MG/24 HR PATCH T-DERMAL SCH (07:56)
[2016-09-30] MEDS: buPROPion HCL 100 MG SUSTAINED RELEASE TAB PO SCH (07:56)
--- NOTE | 2016-09-30 09:52 | HHI.PR ---
Subjective Remarks In the chair. Says she feels anxious. Plans to go home tomorrow after finishing course of antibiotics. The patient is ambulating to the bathroom without any problems. Says she doesn't have any suprapubic pain or abdominal pain. No problems urination. Urine is clear. No nausea, vomiting, diarrhea or constipation. Denies fever or chills Objective Vitals Vital Signs Date Time Temp Pulse Resp B/P Pulse Ox O2 Delivery O2 Flow Rate FiO2 09/30/16 05:38 98.6 104 18 105/56 98 09/29/16 16:00 98.4 89 16 103/67 97 I/O 09/29/16 09/29/16 09/29/16 09/30/16 09/30/16 09/30/16 07:00 15:00 23:00 07:00 15:00 23:00 Intake Total 240 ml 600 ml 600 ml 180 ml Balance 240 ml 600 ml 600 ml 180 ml Intake Oral 240 ml 600 ml 600 ml 180 ml # Voids 4 3 3 2 Result Diagram: 09/28/16 1434 09/29/16 1118 Objective Remarks GENERAL: This is a well-nourished, well-developed patient, in no apparent distress. Awake and alert. CARDIOVASCULAR: Regular rate and rhythm without murmurs, gallops, or rubs. RESPIRATORY: Decreased breath sounds noted. Clear to auscultation. Breath sounds equal bilaterally. No wheezes, rales, or rhonchi. GASTROINTESTINAL: Abdomen soft, non-tender, nondistended. No hepato-splenomegaly , or palpable masses. No guarding. MUSCULOSKELETAL: Extremities without clubbing, cyanosis, or edema. No joint tenderness, effusion, or edema noted. No calf tenderness. NEUROLOGICAL: Awake and alert. Able to move all extremities. Normal speech. A/P Assessment and Plan 50-year-old female with past medical history significant for COPD who was brought into the hospital by EMS on 09/18/16 for altered mental status due to overdose of Robaxin and Klonopin. Depression Suicide attempt via overdose Management per psychiatric team QT prolongation which has resolved Pneumonia and UTI with ESBL Escherichia coli Klebsiella pneumonia Likely aspiration pneumonia Recent acute respiratory failure requiring intubation Gram-positive bacteremia Infectious disease following 09/20/16 bronchial washings positive for Escherichia coli ESBL and Klebsiella Continue IV Imipenem per ID recommendations for another 5 days Follow-up on repeat blood cultures - currently no growth 1 day COPD, currently not in acute exacerbation Ongoing tobaccoism Continue duo nebyaa scheduled Discussed smoking cessation Systolic dysfunction with EF of 30% Cardiomyopathy Mitral valve regurgitation Patient to follow-up with cardiology as an outpatient. She will need an ischemic workup. Continue on low-dose Coreg. Monitor for signs of fluid overload Hypokalemia PO Repletion ordered Repeat potassium level in a.m. Monitor and replete as need Anemia, normochromic normocytic Trending up Monitor DVT prophylaxis Patient is ambulatory Thank you for this consultation. We will continue to follow along with you. Improving. Can be DC after is done with Iv abx. Discussed with the patient, nurse July Clements MD Sep 30, 2016 09:52
--- NOTE | 2016-09-30 11:30 | HHI.PYPN ---
Subjective Remarks Patient 0 follow with nurse, chart review. As per nursing report patient expresses being interested therapy, no behavioral issues overnight. Slept well. Patient found in hospital bed noted, cooperative in interview. Patient states that she had been feeling "okay" and over the weekend and spoke to her daughter Leni and had been visited by her several times during this admission. Patient's continues to report feeling remorseful and guilty about recent overdose. Patient states that she overreacted and that she would "never do that ever again" and states that she has cris in God. Patient reports sleeping well, fair appetite, energy and concentration. She denies feeling depressed, it states feeling hopeful. Patient agrees with continued outpatient follow-up for more support and services. Patient reports adherence to medications, reports good response and denies any adverse drug reactions. Patient denies any SI, HI, AVH or delusions. Review of Systems Except as stated in HPI: all other systems reviewed are Neg Objective Alert: Yes [place]: Person, Place, Date, Situation Mood: Calm Affect: Appropriate Memory Intact: Comment (intact) Hallucinations: Other (no AVH) Delusions: No Delusion Type: Other (no delusions) Suicidal: Ideation (no SI) Homicidal: Ideation (no HI) Insight/Judgment Fair insight, impulse control and judgment Vitals/IOs Vital Signs Date Time Temp Pulse Resp B/P Pulse Ox O2 Delivery O2 Flow Rate FiO2 09/30/16 05:38 98.6 104 18 105/56 98 Intake and Output 09/29/16 09/29/16 09/30/16 08:00 16:00 00:00 Intake Total 240 ml 600 ml 600 ml Balance 240 ml 600 ml 600 ml Assessment & Plan Problem List: (1) Adjustment disorder with depressed mood ICD Code: F43.21 Assessment & Plan Estimated LOS: 3-5 days. Patient at this time reports feeling "okay" denies any depressive symptoms at this time patient to continue antibiotic treatment as per primary medical team. Patient denies any suicidality and is hopeful to continue doing well with support services in place. Patient adherent with medications denies any adverse drug reactions. Patient to continue bupropion 100 mg by mouth twice a day for depression. Monitor for medication response and adverse drug reactions. Brief supportive psychotherapy provided. Collateral pending with to arrange for proper discharge plan. Patient to continue IV antibiotic treatment as per primary medical team; medical clearance pending. Discharge planning in progress. Justification for Cont. Inpt. Patient at risk for decompensation at lower level care Discharge Planning In progress Request HC Surrog/Guard Advoc?: No Schuyler Sherman MD Sep 30, 2016 11:30
[2016-09-30] MEDS ORDERED: buPROPion HCL 100 MG SUSTAINED RELEASE TAB PO SCH (13:00)
[2016-09-30] MEDS: buPROPion HCL 150 MG SUSTAINED RELEASE TAB PO SCH (13:46)
[2016-09-30] MEDS: ALUMINUM/MAGNESIUM/SIMETH 30 ML CUP PO PRN (13:46)
[2016-09-30] MEDS: LORazepam 1 MG TAB PO PRN ×2 (16:30→22:35)
[2016-09-30] MEDS: ONDANSETRON ODT 4 MG TAB PO PRN (16:37)
[2016-09-30 17:31] VITALS: BP 127/65; PULSE 90; RESP 17; TEMP 97.8; O2SAT 96
[2016-09-30] MEDS: REMOVE OLD NICODERM (NICOTINE) PATCH T-DERMAL SCH (20:21)
[2016-10-01] MEDS: IMIPENEM/CILASTATIN INJ 500 MG in SODIUM CHLORIDE 0.9% INJ 100 ML IV SCH ×2 (02:26→08:00)
[2016-10-01 05:46] VITALS: BP 102/55; PULSE 88; RESP 16; TEMP 97.7; O2SAT 96
[2016-10-01] MEDS: NICOTINE 21 MG/24 HR PATCH T-DERMAL SCH (09:00)
[2016-10-01] MEDS: buPROPion HCL 150 MG SUSTAINED RELEASE TAB PO SCH (09:00)
--- NOTE | 2016-10-01 09:19 | HHI.PR ---
Subjective Remarks Patient in nad, ambulating in the room. Ready to go home. Received the last dose of antibiotic. No fever or chills. No n/v/d/c. Objective Vitals Vital Signs Date Time Temp Pulse Resp B/P Pulse Ox O2 Delivery O2 Flow Rate FiO2 10/01/16 05:46 97.7 88 16 102/55 96 09/30/16 17:31 97.8 90 17 127/65 96 I/O 09/30/16 09/30/16 09/30/16 10/01/16 10/01/16 10/01/16 07:00 15:00 23:00 07:00 15:00 23:00 Intake Total 180 ml 960 ml 840 ml 720 ml 480 ml Output Total 2 ml Balance 180 ml 958 ml 840 ml 720 ml 480 ml Intake Oral 180 ml 960 ml 840 ml 720 ml 480 ml Output Urine Total 2 ml # Voids 2 3 2 Result Diagram: 09/28/16 1434 09/29/16 1118 Objective Remarks GENERAL: This is a well-nourished, well-developed patient, in no apparent distress. Awake and alert. CARDIOVASCULAR: Regular rate and rhythm without murmurs, gallops, or rubs. RESPIRATORY: Decreased breath sounds noted. Clear to auscultation. Breath sounds equal bilaterally. No wheezes, rales, or rhonchi. GASTROINTESTINAL: Abdomen soft, non-tender, nondistended. No hepato-splenomegaly , or palpable masses. No guarding. MUSCULOSKELETAL: Extremities without clubbing, cyanosis, or edema. No joint tenderness, effusion, or edema noted. No calf tenderness. NEUROLOGICAL: Awake and alert. Able to move all extremities. Normal speech. A/P Assessment and Plan 50-year-old female with past medical history significant for COPD who was brought into the hospital by EMS on 09/18/16 for altered mental status due to overdose of Robaxin and Klonopin. Depression Suicide attempt via overdose Management per psychiatric team QT prolongation which has resolved Pneumonia and UTI with ESBL Escherichia coli Klebsiella pneumonia Likely aspiration pneumonia Recent acute respiratory failure requiring intubation Gram-positive bacteremia Infectious disease following 09/20/16 bronchial washings positive for Escherichia coli ESBL and Klebsiella Continue IV Imipenem per ID recommendations for another 5 days Follow-up on repeat blood cultures - currently no growth 1 day COPD, currently not in acute exacerbation Ongoing tobaccoism Continue duo nebs scheduled Discussed smoking cessation Systolic dysfunction with EF of 30% Cardiomyopathy Mitral valve regurgitation Patient to follow-up with cardiology as an outpatient. She will need an ischemic workup. Continue on low-dose Coreg. Monitor for signs of fluid overload Hypokalemia PO Repletion ordered Repeat potassium level in a.m. Monitor and replete as need Anemia, normochromic normocytic Trending up Monitor DVT prophylaxis Patient is ambulatory Thank you for this consultation. We will continue to follow along with you. Improving. Cleared for DC. Finished course of antibiotic. Discussed with the patient, nurse, family at bedside July Clements MD Oct 01, 2016 09:19
[2016-10-01] MEDS ORDERED: BUPR150CR PO (09:46)
--- NOTE | 2016-10-01 15:23 | HHI.DS ---
Psychiatry Discharge Summary Inpatient Psychiatric care?: Yes Advance Directive: No Reason Not Provided: will give info Mental Health AdvanceDirective: No Health Care Proxy: No Admission Admission Date Sep 25, 2016 at 14:46 Admission Diagnosis: (1) Adjustment disorder with depressed mood ICD Code: F43.21 Brief History Patient is a 42-year-old woman, , with 4 kids, living with , unemployed with a past psychiatric history of depression, no psychiatric hospitalizations, no ReVia suicide attempts, no outpatient mental health provider at this time, was brought in by EMS on 09/18/16 for altered mental status, likely overdose of Robaxin and Klonopin. Patient was admitted to ICU intubated for respiratory failure (extubated on 09/23/16), pneumonia, metabolic acidosis, and evaluate by cardiology for much valve regurg. Patient was subsequently discharged on 09/25/16 to medical/psychiatry unit for further evaluation and management of apparent suicide attempt via overdose. As per Dr. William note, Per chart documentation the patient had most likely intentional overdose of Robaxin as well as possible overdose of Klonopin. Apparently this is the birthday of her mother . The patient on arrival was a GCS of 3, and was intubated by ED attending for an airway protection. Patient was admitted in the ICU with respiratory failure, pneumonia , metabolic acidosis, she is being evaluated by cardiology due to Mitral valve vegetation. Psychotic evaluation today patient poorly cooperative, very sedated , difficult to arouse and engage in a conversation. However, patient says that he overdosed with the intention to "because he was my mother's birthday, but also had an argument with my doesn't love me". Patient says that she has been very depressed, many things in her life have been down that hill, she has been facing multiple arguments with her and for this reason her depression has been worsening. Patient clarifies that she overdosed with the intention to kill herself. As per medical discharge summary, metabolic acidosis resolved, continue follow up for hypernatremia, potassium replaced for hypokalemia, cardiology continues to follow patient for cardiomyopathy and mitral valve regurgitation, patient continued on antibiotic treatment for probable aspiration pneumonia and sepsis and followed by infectious disease service. As per cardiology follow-up: Patient had TTE done which noted no vegetation but with LVEF noted to be 30%. Patient started on low-dose Coreg for new cardiomyopathy. Patient will require follow-up ischemic evaluation when stable. As per Infectious disease follow-up: Patient currently with UTI, pneumonia due to ESBL Escherichia coli, still with bilateral lung infiltrates on chest x-ray. Patient to continue imipenem. OT eval: Recommendations are that patient will benefit from occupational therapy in acute care and recommended for rehabilitation placement. PT eval: Physical therapy 3-5 times per week, Thursday through Thursday for the length of stay. Imaging: CT brain negative EKG 09/19/16: QT prolongation resolved Patient seen with nurse, chart reviewed. As per nursing report patient has been pleasant and overnight attempted to remove the Weinberg catheter, slept well. Patient states that prior to coming to the emergency department she had spoke to her son-in-law who had told her that his children will be taken into foster care. She reports having called her daughter to report the news and felt that her daughter didn't care. Patient reports that her was also very upset and felt that he wasn't supposed to happen. Patient reports having felt very overwhelmed as well as felt that she wanted to "get back at her daughter" and states that she had taken her remaining medications and remembers thinking "screw you all". Patient states that she had expected to "join my mother" as she recalls says recently been the anniversary of the of her mother. Patient states that prior to this incident she denies any depressive symptoms reporting having been sleeping well and good appetite, good energy, concentration, mood having been "good" and denies feeling sad or depressed. She states that these have been going well and she didn't have a happy relation with her despite ED note stating that she been having relationship discord with her . Patient recalls having been visited by her older daughter and having an feeling guilty for having done this. She states that she feels "awful" about having attempted to end her life. She mentioned that now she feels that she wants to live to be a better mother feels that she let everyone down. Patient states that she's feeling "good" denies having any suicidal ideations at this time and assess if she could be discharged to go home. Patient was reminded of the seriousness of her actions and that she would require further monitoring and management at this time which she reluctantly agreed to. Past psychiatric history: As per chart history of depression, denies any previous psychiatric hospitalizations, denies any previous suicide attempts, denies any outpatient mental health provider services, no previous medication trials aside from clonazepam 0.5 mg daily prescribed by her primary care doctor. Patient denies any history of sexual physical abuse. Family psychiatric history: Denies, denies any suicides in the family. Substance use history: Reports tobacco use one pack per day, occasional alcohol use, reports remote history of cocaine use during her 20s. She states also that she used marijuana years ago but occasionally smoke marijuana with her . Social history: , has 2 adult daughters, currently living with , unemployed. Patient was born and raised in [place], highest education is 11th grade. She denies having any firearms in the home. Mandaen Jew. Tobacco Use In Past 30 Days: 5 or More Cigarettes/Day Alcohol Use: Never Hospital Course Patient is a 42-year-old woman, , with 4 kids, living with , unemployed with a past psychiatric history of depression, no psychiatric hospitalizations, no previous suicide attempts, no outpatient mental health provider at this time, was brought in by EMS on 09/18/16 for altered mental status, likely overdose of Robaxin and Klonopin. Patient was admitted to ICU intubated for respiratory failure (extubated on 09/23/16), pneumonia, metabolic acidosis, and evaluate by cardiology for much valve regurg. Patient was subsequently discharged on 09/25/16 to medical/psychiatry unit for further evaluation and management of apparent suicide attempt via overdose. Patient was noted to minimize recent overdose initially but later with improved insight into the gravity of her action which patient expressed remorse, guilt, and appreciation for having survived. Patient was started on bupropion 100mg by mouth twice daily for depressive symptoms. Patient was continued to be followed by infectious disease service as well as primary medical service for pneumonia and UTI with ESBL e.coli and . Patient was managed on Imipenem and remained on contact precautions during her treatment. Bupropion was titrated up to 150mg by mouth twice a day and continued to improve and continued to remain in stable mood, denying suicidality, and now future oriented and goal- directed. Team met with patients who feels his is doing much better and agrees to provide support in her continuity of care. Patient states wanting to continue treatment and adhere to outpatient follow up. Psychoeducation was provided. Patient states that she plans to adhere to treatment plan post discharge and states that the most important things in her life and worth living for are her family, friends and her cris in God. Patient at this time reports feeling great, denies SI, HI, AVH or delusions. Patient advised to continue current treatment, and adhere to outpatient follow- up. Continue bupropion 150 mg by mouth twice a day. Patient advised to call 911 or return to the ED in case of any emergency. Patient agrees with plan Results Blood Pressure 102 / 55 Vital Signs Date Time Temp Pulse Resp B/P Pulse Ox O2 Delivery O2 Flow Rate FiO2 10/01/16 05:46 97.7 88 16 102/55 96 CBC with noted normocytic anemia, BMP within normal limits Summary of Procedures None Pending results at discharge: No Medications # of Antipsychotic meds at D/C: 0 Approp Antipsych med options 1 - Minimum of three failed multiple trials of monotherapy. 2 - Documented plan to taper to monotherapy due to previous use of multiple meds OR cross-taper in progress at D/C. 3 - Documentation of augmentation of Clozapine. 4 - Justification other than those listed in allowable values 1-3, document here : Discharge Discharge Date: Oct 01, 2016 Discharge Diagnosis: (1) Adjustment disorder with depressed mood Diagnosis: Principal ICD Code: F43.21 Mental Status Exam at Disch Patient appears older than stated age, in casual clothing, fair hygiene and grooming, calm and cooperative in interview. Fair eye contact. Speech normal rate tone and prosody, mood "great", affect appropriate, thought process linear , future oriented, thought content denies SI, HI, AVH or delusions, fair insight , impulse control and judgment. Alert and oriented 3 Pt Condition on Discharge: Fair Discharge Disposition: Discharge Home Discharge Instructions Diet Instructions: Heart Healthy Diet Activities you can perform: Regular-No Restrictions Scheduled Appointment: [facility] Appointment Date: Oct 03, 2016 Appointment Time: 07:30am Discharge Time > 30 minutes Discharge/Advance Care Plan Health Problems: (1) Adjustment disorder with depressed mood Goals to promote your health * To prevent worsening of your condition and complications * To maintain your health at the optimal level Directions to meet your goals Take your medications as prescribed Follow your dietary instruction Follow activity as directed Keep your appointments as scheduled Take your immunizations and boosters as scheduled If your symptoms worsen call your PCP, if no PCP go to Urgent Care Center or Emergency Room For 15/09 questions related to your inpatient stay or results of tests pending at discharge, please contact Dr. Schuyler Sherman at Smoking is Dangerous to Your Health. Avoid second hand smoking Schuyler Sherman MD Oct 01, 2016 15:23
== END 2016-10-01 10:20 | disposition home or self-care (01) | DRG 881 ==
LOC: H4EA 14:46
PROVIDERS: ADMIT Student in an Organized Health Care Education/Training Program; ATTEND Student in an Organized Health Care Education/Training Program
DX: F43.21 Adjustment disorder with depressed mood (principal); J69.0 Pneumonitis due to inhalation of food and vomit; J15.0 Pneumonia due to Klebsiella pneumoniae; J15.5 Pneumonia due to Escherichia coli; E87.0 Hyperosmolality and hypernatremia; I42.9 Cardiomyopathy, unspecified; N39.0 Urinary tract infection, site not specified; J44.0 Chronic obstructive pulmonary disease with (acute) lower respiratory infection; F17.210 Nicotine dependence, cigarettes, uncomplicated; E87.6 Hypokalemia; D64.9 Anemia, unspecified; I34.0 Nonrheumatic mitral (valve) insufficiency; B96.20 Unspecified Escherichia coli [E. coli] as the cause of diseases classified elsewhere; Z91.5 Personal history of self-harm; F12.90 Cannabis use, unspecified, uncomplicated; Z16.12 Extended spectrum beta lactamase (ESBL) resistance
CPT/HCPCS: 80048; 80061; 83036; 83735; 85025; 94640; 94664; J0743; J2060